=== PATIENT | male | born 1955 | race Caucasian/White ===

== ENCOUNTER 2020-07-26 10:40 | Outpatient (REF) | payer MEDICARE, MEDICAID, SELFPAY | END 2020-07-26 10:41 | disposition home or self-care (01) | LOC: HO.LAB 10:40 | PROVIDERS: Visit Provider Internal Medicine | DX: Z20.828 Contact with and (suspected) exposure to other viral communicable diseases (principal) | CPT/HCPCS: C9803; U0003 ==

== ENCOUNTER → 2020-07-29 10:38 | Outpatient (BNVA) | payer MEDICARE, MEDICAID, SELFPAY | PROVIDERS: PCP Nurse Practitioner Family; Visit Provider Internal Medicine | DX: Z76.89 Persons encountering health services in other specified circumstances (principal) ==

== ENCOUNTER → 2020-08-26 12:37 | Outpatient (BNVA) | payer MEDICARE, MEDICAID, SELFPAY | PROVIDERS: Visit Provider Orthopaedic Surgery | DX: M75.102 Unspecified rotator cuff tear or rupture of left shoulder, not specified as traumatic (principal); I48.91 Unspecified atrial fibrillation | CPT/HCPCS: 99212 ==

== ENCOUNTER 2020-08-27 08:39 | Outpatient (REF) | payer MEDICARE, MEDICAID, SELFPAY | END 2020-08-27 08:40 | disposition home or self-care (01) | LOC: HO.LAB 08:39 | PROVIDERS: Visit Provider Internal Medicine | DX: Z20.822 Contact with and (suspected) exposure to COVID-19 (principal) | CPT/HCPCS: 36415; C9803; U0003 ==

== ENCOUNTER 2020-09-13 10:50 | Outpatient (REF) | payer MEDICARE, MEDICAID, SELFPAY | END 2020-09-13 10:51 | disposition home or self-care (01) | LOC: HO.LAB 10:50 | PROVIDERS: Visit Provider Internal Medicine | DX: Z20.822 Contact with and (suspected) exposure to COVID-19 (principal) | CPT/HCPCS: 36415; C9803; U0003; U0005 ==

== ENCOUNTER → 2020-09-15 12:45 | Outpatient (BNVA) | payer MEDICARE, MEDICAID, SELFPAY | PROVIDERS: PCP Nurse Practitioner Family; Visit Provider Internal Medicine | DX: I48.0 Paroxysmal atrial fibrillation (principal); I10 Essential (primary) hypertension; Z51.81 Encounter for therapeutic drug level monitoring; Z79.899 Other long term (current) drug therapy | CPT/HCPCS: 93005; 99212 ==

== ENCOUNTER 2020-09-22 08:47 | Outpatient (REF) | payer MEDICARE, MEDICAID, SELFPAY | END 2020-09-22 08:48 | disposition home or self-care (01) | LOC: HO.LAB 08:47 | PROVIDERS: Visit Provider Internal Medicine | DX: Z20.822 Contact with and (suspected) exposure to COVID-19 (principal) | CPT/HCPCS: 36415; C9803; U0003; U0005 ==

== ENCOUNTER → 2020-12-23 13:46 | Outpatient (BNVA) | payer MEDICARE, MEDICAID, SELFPAY | PROVIDERS: PCP Nurse Practitioner Family; Visit Provider Orthopaedic Surgery | DX: M75.102 Unspecified rotator cuff tear or rupture of left shoulder, not specified as traumatic (principal); I48.0 Paroxysmal atrial fibrillation | CPT/HCPCS: 99212 ==

== ENCOUNTER → 2020-12-28 10:13 | Outpatient (BNVA) | payer MEDICARE, MEDICAID, SELFPAY | PROVIDERS: PCP Nurse Practitioner Family; Visit Provider Internal Medicine | DX: I48.0 Paroxysmal atrial fibrillation (principal); I10 Essential (primary) hypertension; Z51.81 Encounter for therapeutic drug level monitoring; Z79.899 Other long term (current) drug therapy | CPT/HCPCS: 93005; 99212 ==

== ENCOUNTER → 2021-01-04 09:47 | Outpatient (REF) | payer MEDICARE, MEDICAID, SELFPAY ==
--- NOTE | 2021-01-04 11:10 | ECG_ITS ---
Hook-up date: 2021-01-04 10:00:00 Duration: 23:15:00 Test Indications: PAF Medications: [id number] QRS complexes 33 Ventricular ectopics which represent <1 % of total QRS comp. * Supraventricular ectopics which represent % of total QRS comp. * Paced QRS complexs which represent % of total QRS comp. VENTRICULAR ECTOPY 33 Isolated 0 Bigeminal Cycles 0 Couplets 0 Runs 0 Beats in Runs * Beats LONGEST at * BPM at :: -- * Beats FASTEST at * BPM at :: -- SUPRAVENTRICULAR ECTOPY * Isolated * Couplets * Runs * Beats in Runs * Beats LONGEST at * BPM at :: -- * Beats FASTEST at * BPM at :: -- HEART RATES 50 MIN at 10:17:05 2021-01-04 75 AVG 115 MAX at 19:51:34 2021-01-04 LONGEST RR 2.0080 secs at 10:17:05 2021-01-04 S-T LEVELS Channel 1 - 128 mm at 10:00:00 2021-01-04 - 128 mm at 10:00:00 2021-01-04 Channel 2 - 128 mm at 10:00:00 2021-01-04 - 128 mm at 10:00:00 2021-01-04 Channel 3 - 128 mm at 02:91:91 -- - 128 mm at 02:91:91 Underlying rhythm is atrial fibrillation; Average ventricular rate 75/min; Most rates between 60-100/min; Rare PVCs; Patient diary not available for review. Referred By: Asif Gutierrez Overread By: ASIF GUTIERREZ
== END ==
LOC: HO.CARD 09:47
PROVIDERS: PCP Nurse Practitioner Family; Referring Provider Nurse Practitioner Family; Visit Provider Internal Medicine
DX: I48.0 Paroxysmal atrial fibrillation (principal)
CPT/HCPCS: 93226

== ENCOUNTER → 2021-01-11 08:54 | Outpatient (REF) | payer MEDICARE, BC, SELFPAY | LOC: HO.SL 08:54 | PROVIDERS: Visit Provider Internal Medicine | DX: G47.33 Obstructive sleep apnea (adult) (pediatric) (principal); I48.0 Paroxysmal atrial fibrillation | CPT/HCPCS: 95806 ==

== ENCOUNTER → 2021-01-18 14:46 | Outpatient (BNVA) | payer MEDICARE, MEDICAID, SELFPAY | PROVIDERS: PCP Nurse Practitioner Family; Visit Provider Internal Medicine | DX: E66.9 Obesity, unspecified (principal); G47.33 Obstructive sleep apnea (adult) (pediatric); I48.0 Paroxysmal atrial fibrillation | CPT/HCPCS: 99202 ==

== ENCOUNTER → 2021-02-08 10:42 | Outpatient (BNVA) | payer MEDICARE, MEDICAID, SELFPAY | PROVIDERS: PCP Nurse Practitioner Family; Visit Provider Internal Medicine | DX: I48.0 Paroxysmal atrial fibrillation (principal); I10 Essential (primary) hypertension; G47.33 Obstructive sleep apnea (adult) (pediatric); Z51.81 Encounter for therapeutic drug level monitoring; Z79.899 Other long term (current) drug therapy | CPT/HCPCS: 93005; 99212 ==

== ENCOUNTER → 2021-04-27 09:44 | Outpatient (BNVA) | payer MEDICARE, MEDICAID, SELFPAY | PROVIDERS: PCP Nurse Practitioner Family; Visit Provider Internal Medicine | DX: I10 Essential (primary) hypertension (principal); G47.33 Obstructive sleep apnea (adult) (pediatric); Z79.899 Other long term (current) drug therapy; Z51.81 Encounter for therapeutic drug level monitoring | CPT/HCPCS: 99212 ==

== ENCOUNTER → 2021-05-05 10:37 | Outpatient (BNVA) | payer MEDICARE, MEDICAID, SELFPAY | PROVIDERS: Visit Provider Orthopaedic Surgery | DX: M75.102 Unspecified rotator cuff tear or rupture of left shoulder, not specified as traumatic (principal); I48.0 Paroxysmal atrial fibrillation | CPT/HCPCS: 99212 ==

== ENCOUNTER 2021-06-03 09:59 | Emergency (ER) | payer MEDICARE, MEDICAID, SELFPAY ==
--- NOTE | ~2021-06-03 | XR_ITS ---
EXAMINATION: XR KNEE, RIGHT CLINICAL INFORMATION: Knee pain COMPARISON: March 23, 2016 TECHNIQUE: Four views of the right knee. FINDINGS: There is no evidence of acute fracture or dislocation of the right knee. The medial and lateral joint space compartments are maintained. There is mild spurring about the lateral joint space compartment. There is narrowing of the patellofemoral joint with prominent spurring present. There is a right knee effusion. XR/XR knee RT 4V IMPRESSION: Right knee effusion with patellofemoral joint degenerative change.
[2021-06-03 10:21] VITALS: BP 136/100; PULSE 66; RESP 18; TEMP 36.9; O2SAT 95; BMI 34.2
--- NOTE | 2021-06-03 11:34 | ED.LOWEXIN ---
HPI - Extremity Injury (Lower) General Chief Complaint: Extremity Injury, Lower Stated Complaint: rt knee injury Time Seen by Provider: 06/03/21 11:32 Source: patient Mode of arrival: ambulatory Limitations: no limitations History of Present Illness HPI Narrative: 65-year-old male presenting to the ED with complaints of right knee pain/swelling after he had a mechanical fall where he fell off of a ladder approximately 2 days ago and instead of falling on his back/head he jumped off of the ladder and landed on his right knee and since then has been having pain and mild soft tissue swelling. He reports that he has an appointment with Dr. Benitez later this month for a left rotator cuff repair and he has had meniscus tears to the left knee and surgery therefore this is why he contacted him although Dr. Benitez told him to come here for further evaluation treatment. Patient reports that he is interested in having an MRI due to he knows he has ligament tear. I explained to him that we do not do MRIs emergently in the ER unless they are having stroke or any other symptoms like that and that he would have to follow up as an outpatient with Dr. Benitez for an MRI if Dr. Benitez believes he needs 1. He denies head injury or loss of consciousness. He denies any other injuries complaints or concerns at this time. MD complaint: knee injury and fall Onset (ago): day(s) (Two days) Type of Injury: blunt Place: street/outdoors Severity: moderate Relieving factors: other (Extension of the knee or rest or immobilization) Exacerbating factors: weight bearing, movement, palpation and other (Or flexion of the knee) Context: fall Associated symptoms: swelling and able to partially bear weight Other symptoms: none Treatments prior to arrival: other (He reports he has tried multiple [id number] medication no symptomatic relief) Related Data Home Medications Medication Instructions Recorded Confirmed zolpidem 10 mg tablet 10 mg PO BEDTIME PRN 08/26/20 06/01/21 Previous Rx's Medication Instructions Recorded metoprolol tartrate 25 mg tablet 25 mg PO BID #180 tab 11/16/20 apixaban 5 mg tablet (Eliquis) 5 mg PO BID #180 tab 12/28/20 flecainide 150 mg tablet 150 mg PO Q12H #180 tab 12/28/20 diltiazem HCl 240 mg 240 mg PO DAILY 90 Days #90 cap 02/17/21 capsule,extended release 24 hr acetaminophen 500 mg tablet 1,000 mg PO QID PRN #14 tab 06/03/21 (Tylenol Extra Strength) oxycodone 5 mg tablet 5 mg PO Q6H PRN #14 tab 06/03/21 Allergies Allergy/AdvReac Type Severity Reaction Status Date / Time No Known Allergies Allergy Verified 06/01/21 15:47 [No Known Allergies*] Review of Systems Review of Systems: Constitutional : No Weight loss, No Fever, No Chills, No Night Sweats, No Fatigue, No Malaise ENT/Mouth : No Hearing loss, No Ear Pain, No Nasal Congestion, No Sinus Pain, No Hoarseness, No sore throat, No Rhinorrhea, No Swallowing Difficulty Eyes: No Eye Pain, No Swelling, No Redness, No Foreign Body, No Discharge, No Vision Changes Cardiovascular : No Chest Pain, No SOB, No Dyspnea on Exertion, No Orthopnea, No Edema, No Palpitations Respiratory : No Cough, No Sputum, No Wheezing, No Smoke Exposure, No Dyspnea Gastrointestinal : No Nausea, No Vomiting, No Diarrhea, No Constipation, No abdominal Pain, No Hematochezia, No Melena Genitourinary : no irregular bleeding, No Dysuria, No Urinary Frequency, No Hematuria, No Urinary Incontinence, No Urgency, No Flank Pain, No Urinary Flow Changes, No Hesitancy Musculoskeletal : Positive right knee joint pain/swelling, no myalgias, Skin : No Skin Lesions, No rash Neuro : No Weakness, No Numbness, No Paresthesias, No Loss of Consciousness, No Dizziness, No Headache Psych : No Anxiety/Panic, No Depression, No SI/HI/AH/VH, No Social Issues, Heme/Lymph: No Bruising, No Bleeding,No Lymphadenopathy Endocrine : No Polyuria, No Polydipsia, No Temperature Intolerance Yes all other systems are reviewed and are negative [facility] Past Medical History Attestation statement: The following information was validated with the patient. Medical History Atrial fibrillation Essential hypertension History of depression Obesity (BMI 30-39.9) On anticoagulant therapy On beta adrian at home ELLEN (obstructive sleep apnea) PAF (paroxysmal atrial fibrillation) Surgical History History of cardioversion History of elbow surgery History of left knee surgery Hx of colonoscopy Hx of surgical procedure Family History Family History Mother No problems noted. Father No problems noted. Social History Social History Are you a primary career development engineer to a significant other at home: No Do you presently have visiting nurse or other home services: No Alcohol intake: never Patient Tobacco Use Status: Former Tobacco user Quit Date: Tobacco use type: Cigarette Years Smoked: 1 Advance Directives: Yes Advance Directives on File: Yes Advance Directives Date on File: 04/07/21 Current occupational status: retired 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 Physical Exam Vital Signs: Vital Signs: Last Vital Signs Temp 98.5 F 06/03/21 10: Pulse 66 06/03/21 10:21 Resp 18 06/03/21 10:21 BP 136/100 H 06/03/21 10:21 Pulse Ox 95 06/03/21 10:21 Body Mass Index 34.2 vital signs have been reviewed as normal and appeared to be correct. Blood pressure normal Heart rate normal. Respiration rate normal. Temperature normal. Oxygen saturation normal. Appearance: Alert. Oriented X3. No acute distress. Head: Normal external exam. Normocephalic. Atraumatic. Eyes: PERRLA. EOMI. Conjunctiva and sclera normal. Eyelids normal. ENT: Pharynx normal. Uvula midline. Moist mucous membranes. Neck: Normal inspection. Neck supple. FROM. CVS: Normal heart rate and rhythm. Respiratory: No respiratory distress. Painless inspiration. Skin: Skin warm and dry. Normal skin color. Normal skin turgor. No rashes/lesions/lacerations noted. Extremities: Patient mild soft tissue swelling to right knee and tenderness up patient to the posterior aspect of the knee/lateral aspect and medial aspect. No obvious ligamentous or tendon injury is noted on my exam. Although patient has moderate pain when I perform flexion of the knee. He has normal extension of the knee. all other Extremities exhibit normal range of motion and nontender. Neuro: Oriented X 3. No motor deficit. No sensory deficit. Reflexes normal. Normal steady gait. No focal neuro deficits noted. Vascular: + radial pulses/+ 2 distal pedal pulses/+2 dorsalis pedis b/l. Normal cap refill. No cyanosis noted to upper extremity nails and lower extremity toes nails. Course Course Course Narrative: 65-year-old male presenting to the ED with complaints of right knee pain/swelling after he had a mechanical fall 2 days ago. X-ray revealed joint effusion otherwise no other acute processes. Therefore explained to the patient that he will need to follow up with Dr. Benitez for further evaluation treatment and possible MRI of Dr. Benitez believes he needs it. Along with instructions return if any new or worsening symptoms. Will DC home with a knee immobilizer and symptomatic treatment instructions return if any new or worsening symptoms. Patient understands agrees with this plan. MDM - Extremity Injury (Lower) Medical Records Attestation: I reviewed the patient's medical records. Imaging Data Right knee x-ray: Attestation: I personally reviewed and interpreted this imaging study as follows: Radiologist's impression: FINDINGS: There is no evidence of acute fracture or dislocation of the right knee. The medial and lateral joint space compartments are maintained. There is mild spurring about the lateral joint space compartment. There is narrowing of the patellofemoral joint with prominent spurring present. There is a right knee effusion.? XR/XR knee RT 4V IMPRESSION: Right knee effusion with patellofemoral joint degenerative change. Procedures Orthopedic Splinting/Casting Injury #1: Side: right Lower Extremity Injury Location: knee Lower Extremity Immobilizer: knee immobilizer and Nicholas wrap Other Orthopedic Equipment: crutches Discharge Plan Discharge Clinical Impression: Fall, Right knee sprain, Effusion of knee joint right Patient Disposition: Home, Self-Care Instructions: Knee Sprain (ED), Crutch Instructions (ED), How to Use an Elastic Bandage (ED), Swollen Knee Joint (ED), Fall Prevention (ED), Knee Immobilizer (ED) Prescriptions: New oxycodone 5 mg tablet 5 mg PO Q6H PRN (Reason: pain) Qty: 14 RF: 0 acetaminophen [Tylenol Extra Strength] 500 mg tablet 1,000 mg PO QID PRN (Reason: fever or pain) Qty: 14 RF: 0 No Action metoprolol tartrate 25 mg tablet 25 mg PO BID Qty: 180 RF: 1 diltiazem HCl 240 mg capsule,extended release 24hr 240 mg PO DAILY 90 Days Qty: 90 RF: 1 flecainide 150 mg tablet 150 mg PO Q12H Qty: 180 RF: 4 Eliquis 5 mg tablet 5 mg PO BID Qty: 180 RF: 4 zolpidem 10 mg tablet 10 mg PO BEDTIME PRN (Reason: Sleep) RF: 0 Referrals: Vandana Benitez MD [Physician] - 2 days Print Language: Latvian
== END 2021-06-03 11:48 | disposition home or self-care (01) ==
PROVIDERS: Emergency Provider Emergency Medicine
DX: S83.91XA Sprain of unspecified site of right knee, initial encounter (principal); M25.461 Effusion, right knee; W01.0XXA Fall on same level from slipping, tripping and stumbling without subsequent striking against object, initial encounter; Y93.9 Activity, unspecified; Y92.9 Unspecified place or not applicable; Y99.9 Unspecified external cause status; Z79.899 Other long term (current) drug therapy; F17.210 Nicotine dependence, cigarettes, uncomplicated; Z71.6 Tobacco abuse counseling
CPT/HCPCS: 29505; 73564; 99283

== ENCOUNTER → 2021-06-06 10:58 | Outpatient (BNVA) | payer MEDICARE, MEDICAID, SELFPAY | PROVIDERS: PCP Orthopaedic Surgery; Visit Provider Physician Assistant | DX: Z01.818 Encounter for other preprocedural examination (principal); S80.01XA Contusion of right knee, initial encounter; W11.XXXA Fall on and from ladder, initial encounter; Y93.39 Activity, other involving climbing, rappelling and jumping off; Y92.9 Unspecified place or not applicable; Y99.8 Other external cause status; I48.0 Paroxysmal atrial fibrillation; I10 Essential (primary) hypertension; E66.9 Obesity, unspecified; Z68.34 Body mass index [BMI] 34.0-34.9, adult; Z87.891 Personal history of nicotine dependence | CPT/HCPCS: 20610; 99212; J1040 ==

== ENCOUNTER → 2021-06-28 12:31 | Outpatient (BNVA) | payer MEDICARE, MEDICAID, SELFPAY | PROVIDERS: Visit Provider Physician Assistant | DX: M75.102 Unspecified rotator cuff tear or rupture of left shoulder, not specified as traumatic (principal) | CPT/HCPCS: 99212 ==

== ENCOUNTER → 2021-11-02 09:14 | Outpatient (BNVA) | payer MEDICARE, MEDICAID, SELFPAY | PROVIDERS: Visit Provider Internal Medicine | DX: I48.0 Paroxysmal atrial fibrillation (principal); I10 Essential (primary) hypertension; G47.33 Obstructive sleep apnea (adult) (pediatric); Z51.81 Encounter for therapeutic drug level monitoring; Z79.899 Other long term (current) drug therapy | CPT/HCPCS: 93005; 99212 ==

== ENCOUNTER → 2021-12-14 08:47 | Outpatient (BNVA) | payer MEDICARE, MEDICAID, SELFPAY | PROVIDERS: PCP Family Medicine; Visit Provider Internal Medicine | DX: I48.0 Paroxysmal atrial fibrillation (principal); I10 Essential (primary) hypertension; G47.33 Obstructive sleep apnea (adult) (pediatric); Z79.01 Long term (current) use of anticoagulants; Z79.899 Other long term (current) drug therapy; Z99.89 Dependence on other enabling machines and devices | CPT/HCPCS: 93005; 99212 ==

== ENCOUNTER → 2022-01-02 10:36 | Outpatient (BNVA) | payer MEDICARE, MEDICAID, SELFPAY | PROVIDERS: PCP Family Medicine; Visit Provider Internal Medicine | DX: G47.33 Obstructive sleep apnea (adult) (pediatric) (principal); E66.9 Obesity, unspecified; Z68.35 Body mass index [BMI] 35.0-35.9, adult | CPT/HCPCS: 99212 ==

== ENCOUNTER → 2022-02-02 08:28 | Outpatient (REF) | payer MEDICARE, MEDICAID, SELFPAY ==
--- NOTE | 2022-02-02 08:30 | HM_ITS ---
Conclusion: 1. Patient was monitored for total period of 3 days and 15 hours 2. Baseline was normal sinus rhythm with average heart rate 61 beats per minute 3. No significant pauses noted 4. Very rare ectopy noted 5. No patient reported events MTDD
--- NOTE | 2022-02-02 08:30 | CA_ITS ---
Transthoracic Echocardiogram Patient (Last, First, Middle): Donald Ornelas, Gender: Male Date of : 1955 Age: 66 Procedure Date: 02/02/2022 Procedure Type: Transthoracic Echocardiogram Location: OP Height: 167.64 cm Weight: 100.7 kg BSA: 2.09 m2 Heart Rate: bpm BP: 134 / 88 mmHg Veterinary Attendant: BEREKET Denise MD: Rodolfo Sims MD Urgent Care Nurse Practitioner: Lc Delacruz MD Symptoms: I48.0 - Paroxysmal atrial fibrillation Study Quality: Fair ECG Rhythm: Sinus Conclusions: - 1. Normal LV systolic function with mild LVH with impaired relaxation filling pattern 2. Mildly dilated left atrium 3. Mild aortic regurgitation 4. Normal RV systolic pressure 5. No pericardial effusion Findings Left Ventricle Normal left ventricular size and systolic function. There is mildly increased left ventricular wall thickness. The visually estimated ejection fraction is between 55-60%. Spectral Doppler is indicative of an impaired relaxation filling pattern. E/E prime ratio is between 8 and 15 consistent with indeterminate filling pressures. Right Ventricle Normal right ventricular cavity size and systolic function. Atria The left atrium is mildly dilated. There is no evidence of interatrial shunt. The right atrium is normal in size. Aortic Valve Normal aortic valve structure and function. There is no aortic valve stenosis. There is mild aortic valve regurgitation. Mitral Valve Normal mitral valve structure and function. There is trace mitral valve regurgitation. There is no mitral valve stenosis. Pulmonic Valve The pulmonic valve is likely normal. There is trace pulmonic valve regurgitation. Tricuspid Valve Normal tricuspid valve structure. There is trace tricuspid valve regurgitation. The right ventricular systolic pressure is normal. The right ventricular systolic pressure is 16 mmHg. Normal right atrial pressure. There is no evidence of pulmonary hypertension. Great Vessels All visible segments of the aorta are normal in size. The pulmonary artery was not well visualized. Venous The inferior vena cava is normal in size and collapses greater than 50% with inspiration. Pericardium/Pleural There is no evidence of pericardial effusion. Prior Study Comparison Changes noted compared to prior study dated: 08/21/2019. Mild LVH is noted Measurements 2D Linear Measurements IVSd: 1.20 0.6-0.9/0.6-1.0 cm LVIDd: 4.49 3.9-5.3/4.2-5.9 cm LVIDd Index: 2.15 2.4-3.2/2.2-3.1 cm/m2 LVIDs: 3.24 2.0-3.6 cm LVPWd: 1.25 0.7-1.1 cm LA Diam: 3.70 2.7-3.8/3.0-4.0 cm LAIDs Index: 1.77 1.5-2.3 cm/m2 LV Mass: 253.49 67-162/88-224 g LV Mass Index: 121.29 43-95/49-115 g/m2 LVOT Diam: 2.10 3.0+(-)1.3 cm 2D Systolic Function EF 4C: 57.20 >55% EF 2C: 62.30 >55% EF BiP: 59.40 >55% Mitral Valve MV Pk E: 0.92 MV PK A: 0.67 MV Decel Time: 250.00 E/A: 1.40 E'Lateral: 8.16 E'Medial: 6.96 E/E' Med: 13.20 E/E' Lat: 11.30 PHT: 73.00 MVA PHT: 3.01 Decel [place]: 3.68 Aortic Valve AoV Pk Wei: 1.33 AoV Mn Wei: 0.91 AoV VTI: 0.29 AoV Pk Grad: 7.00 Aov Mn Grad: 4.00 JEFF Cont.VTI: 2.49 LVOT LVOT Pk Wei: 0.98 LVOT Mn Wei: 0.68 LVOT VTI: 0.21 LVOT Pk Grad: 4.00 LVOT Mn Grad: 2.00 LVOT Diam: 2.10 LVOT Area: 3.46 Diastolic Function MV Pk E: 0.92 MV Pk A: 0.67 E/A: 1.40 E'Medial: 6.96 E/E' Med: 13.20 E' Laterial: 8.16 E/E' Lat: 11.30 Right Ventricle TAPSE (mm): 23.00 TVS' Wei: 11.50 Tricuspid Valve TR Pk Wei: 1.79 TR Pk Grad: 13.00 RA Press: 3.00 RVSP: 16.00 Great Vessels Aorta Sinus of Valsalva: 3.46 2.0-3.[address] [place]: 3.35 1.7-3.4 cm Ao Asc: 3.50 2.1-3.4 cm Ao Arch: 2.80 Updated in Other Vendor System with Status of Final Lc Delacruz MD electronically signed on 02/03/2022 2:52:48 PM with status of Final
== END ==
LOC: HO.CARD 08:28
PROVIDERS: Visit Provider Internal Medicine
DX: I48.0 Paroxysmal atrial fibrillation (principal); R06.02 Shortness of breath
CPT/HCPCS: 93242; 93306

== ENCOUNTER → 2022-02-16 09:29 | Outpatient (BNVA) | payer MEDICARE, MEDICAID, SELFPAY | PROVIDERS: PCP Family Medicine; Referring Provider Family Medicine; Visit Provider Internal Medicine | DX: I48.0 Paroxysmal atrial fibrillation (principal); I10 Essential (primary) hypertension; G47.33 Obstructive sleep apnea (adult) (pediatric); Z79.01 Long term (current) use of anticoagulants; Z79.899 Other long term (current) drug therapy | CPT/HCPCS: 99212 ==

== ENCOUNTER 2022-03-20 07:45 | Outpatient (RCR) | payer MEDICARE, MEDICAID, SELFPAY | END 2022-04-22 15:20 | disposition home or self-care (01) | LOC: HO.PT 07:45 | PROVIDERS: Visit Provider Physician Assistant | DX: Z98.890 Other specified postprocedural states (principal) ==

== ENCOUNTER 2022-04-19 09:59 | Outpatient (REF) | payer MEDICARE, MEDICAID, SELFPAY ==
[2022-04-19 10:33] LABS: COVID-19 Test Negative (Negative)
== END 2022-04-19 10:00 | disposition home or self-care (01) ==
LOC: HO.LAB 09:59
PROVIDERS: Visit Provider Internal Medicine
DX: Z20.822 Contact with and (suspected) exposure to COVID-19 (principal)
CPT/HCPCS: 87635; C9803

== ENCOUNTER → 2022-04-21 10:11 | Outpatient (BNVA) | payer MEDICARE, MEDICAID, SELFPAY | PROVIDERS: Visit Provider Orthopaedic Surgery | DX: M75.102 Unspecified rotator cuff tear or rupture of left shoulder, not specified as traumatic (principal); I48.0 Paroxysmal atrial fibrillation | CPT/HCPCS: 99212 ==

== ENCOUNTER → 2022-04-24 21:06 | Outpatient (REF) | payer MEDICARE, MEDICAID, SELFPAY | LOC: HO.SL 21:06 | PROVIDERS: Visit Provider Internal Medicine | DX: G47.33 Obstructive sleep apnea (adult) (pediatric) (principal); E66.9 Obesity, unspecified | CPT/HCPCS: 95810 ==

== ENCOUNTER → 2022-05-10 06:47 | Day surgery (SDC) | payer MEDICARE, MEDICAID, SELFPAY ==
[2022-05-05 10:31] VITALS: BMI 34.3
--- NOTE | 2022-05-09 08:15 | P.CONAN_ITS ---
Documented by User: Chloe Nielsen NP 05/09/22 08:20 HPI - Anesthesia Eval Consult details Narrative: 66yo M for Left Arthroscopic Rotator Cuff Repair Cardiac cleared Eliquis for afib PMFSH Active Problems Active Problems: All Active Problems (Updated 02/16/22 @ 09:51 by Rodolfo Sims MD) Preoperative cardiovascular examination (Acute) Encounter for monitoring flecainide therapy (Acute) Rotator cuff tear, left (Acute) Contusion of right knee (Acute) Atrial fibrillation (Acute) ELLEN (obstructive sleep apnea) (Acute) Obesity (BMI 30-39.9) (Acute) Essential hypertension (Acute) PAF (paroxysmal atrial fibrillation) (Acute) Past Medical History Medical History Atrial fibrillation Essential hypertension History of depression Obesity (BMI 30-39.9) On anticoagulant therapy On beta adrian at home ELLEN (obstructive sleep apnea) PAF (paroxysmal atrial fibrillation) Family History Family History Mother No problems noted. Father No problems noted. Surgical History Surgical History History of cardioversion History of elbow surgery History of left knee surgery Hx of colonoscopy Hx of surgical procedure Social History Social History Are you a primary health care marketing specialist to a significant other at home: No Do you presently have visiting nurse or other home services: No Alcohol intake: never Patient Tobacco Use Status: Former Tobacco user Quit Date: Tobacco use type: Cigarette Years Smoked: 1 Advance Directives: Yes Advance Directives on File: Yes Advance Directives Date on File: 04/07/21 Current occupational status: retired 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 Meds Allergies Allergy/AdvReac Type Severity Reaction Status Date / Time No Known Allergies Allergy Verified 05/10/22 14:35 [No Known Allergies*] Home Medications Medication Instructions Recorded Confirmed Last Taken Type zolpidem 10 mg tablet 10 mg PO BEDTIME PRN Sleep 08/26/20 05/05/22 Unknown History lorazepam 0.5 mg tablet 0.5 mg PO BID 02/16/22 05/05/22 Unknown History Exam Exam Date and Time: May 09, 2022 0815 Height,Weight and Vital Signs: Height 5 ft 6 in Weight 96.615 kg Narrative Narrative: EKG 12/2021 sinus bradycardia, 58/Min; borderline AK prolongation to 206 millisecond; normal QTc echocardiogram 01/2022 LVEF 55-60%, mild diastolic dysfunction, mild aortic regurgitation but otherwise unremarkable. Myocardial perfusion imaging 01/2022 normal perfusion; no ischemia. Coronary CTA did not show any significant obstructive disease. Recent Holter with no significant arrhythmias. Assessment and Plan Assessment Anesthesia Assessment: Chart Reviewed Documented by User: Darin Clay MD 05/10/22 17:28 [facility] Past Medical History Medical History Atrial fibrillation Essential hypertension History of depression Obesity (BMI 30-39.9) On anticoagulant therapy On beta adrian at home ELLEN (obstructive sleep apnea) PAF (paroxysmal atrial fibrillation) Functional capacity: independent ambulation Family History Family History Mother No problems noted. Father No problems noted. Family history of problems with anesthesia: No Surgical History Surgical History History of cardioversion History of elbow surgery History of left knee surgery Hx of colonoscopy Hx of surgical procedure History of Problems with Anesthesia: No Social History Social History Are you a primary health care marketing specialist to a significant other at home: No Do you presently have visiting nurse or other home services: No Alcohol intake: never Patient Tobacco Use Status: Former Tobacco user Quit Date: Tobacco use type: Cigarette Years Smoked: 1 Advance Directives: Yes Advance Directives on File: Yes Advance Directives Date on File: 04/07/21 Current occupational status: retired 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 Meds Allergies Allergy/AdvReac Type Severity Reaction Status Date / Time No Known Allergies Allergy Verified 05/10/22 14:35 [No Known Allergies*] Home Medications Medication Instructions Recorded Confirmed Last Taken Type zolpidem 10 mg tablet 10 mg PO BEDTIME PRN Sleep 08/26/20 05/05/22 Unknown History lorazepam 0.5 mg tablet 0.5 mg PO BID 02/16/22 05/05/22 Unknown History Exam Airway Mallampati Class: III TM Dist: >3cm Neck ROM: Full Denture: Upper and Lower Loose/Missing/Broken Teeth: Yes Heart: S1,S2 Lungs: b/l breath sounds Assessment and Plan Assessment Anesthesia Assessment: Anesthesia Plan Discussed Final Anesthetic Review Family History of Problems with Anesthesia: No History of Problems with Anesthesia: No NPO: Yes ASA Class: III Final Preanesthetic Review: Meds/Allgs Chart Reviewed, Consent Obtained/Reviewed and Anes Risks/Benef Reviewed Patient Risk: Intermediate Procedure Risk: Intermediate Anesthetic Plan Anesthetic Plan: GA Disposition: Standard PACU
[2022-05-10] VITALS (13 sets, daily range): BP systolic 112–147; BP diastolic 64–81; PULSE 52–65; RESP 15–16; TEMP 36.1–36.4; O2SAT 94–100; BMI 33.4
[2022-05-10 07:44] LABS: Hematocrit 45.4 % (42.0-52.0); Hemoglobin 15.2 g/dl (14.0-18.0); Mean Corpuscular HGB Conc 33.5 g/dl (31.0-36.0); Mean Corpuscular Hemoglobin 29.6 pg (27.0-33.0); Mean Corpuscular Volume 88.5 fL (80.0-98.0); Mean Platelet Volume 9.3 fL (9.4-12.4); Platelet Count 230 X10*3/uL (160-400); Red Blood Count 5.13 X10*6/uL (4.60-5.80); Red Cell Distribution Width 12.8 % (11.0-16.0); White Blood Count 4.1 X10*3/uL (4.8-10.8)
[2022-05-10] MEDS: Lactated Ringers 1,000 ML 100 ML IVCONT (07:49)
[2022-05-10 08:01] LABS: Anion Gap 11 (12-20); Blood Urea Nitrogen 12 mg/dL (9-16); Calcium 9.8 mg/dL (8.4-10.2); Carbon Dioxide 28 mmol/L (22-29); Chloride 104 mmol/L (96-108); Creatinine Clr Calc Pharmacy 85.6; Estimated Glomerular Filt Rate > 60; Glucose Fasting 98 mg/dL (60-99); Potassium 4.4 mmol/L (3.3-5.1); Sodium 139 mmol/L (135-145)
--- NOTE | 2022-05-10 09:59 | MHC.SHP ---
Pre-Procedural Eval Section A Date of Service: 05/10/22 The patient is an INPATIENT: No Changes since office visit: Yes Patient answered all questions; No Cold of Flu in the past 2 weeks, No New Medical Problems and No Changes in Medication The History & Physical has been completed within 30 days and I have reviewed it.: Yes Section B Chief Complaint: rotator cuff tear Allergies: Allergies Allergy/AdvReac Type Severity Reaction Status Date / Time No Known Allergies Allergy Verified 02/16/22 09:34 [No Known Allergies*] Plan I have reviewed the history and physical and performed a pertinent physical examination on my patient. No changes have occurred unless specified.
--- NOTE | 2022-05-10 11:28 | PM.OP ---
Brief Operative Note Date of Service: 05/10/22 Pre-op diagnosis: Left shoulder RTC tear Post-op diagnosis: same Procedure: Left RTC repair, arthroscopic Implants: [employer] Helacoil X4 Surgeon: Ozzie Dominguez MD Anesthesia: GETA and regional Was an Consumer Loan Manager used for this Procedure?: Yes Consumer Loan Manager: Delaney Vega Estimated blood loss (mL): 5 IV fluids (mL): 1,000 Pathology: none sent Condition: stable Disposition: PACU
--- NOTE | 2022-05-10 11:41 | P.OP_ITS ---
Operative Note Operative Note Date of Service: 05/10/22 Narrative: Date of Service: 05/10/22 Pre-op diagnosis: Left shoulder RTC tear Post-op diagnosis: same Procedure: Left RTC repair, arthroscopic Implants: [employer]hew Helacoil X4 Surgeon: Ozzie Dominguez MD Anesthesia: GETA and regional Was an Physical Plant Employee used for this Procedure?: Yes Physical Plant Employee: Delaney Vega Estimated blood loss (mL): 5 IV fluids (mL): 1,000 Pathology: none sent Condition: stable Disposition: PACU Procedure in detail: Patient was brought to the operating room and placed the the beach chair position. All bony prominences were well padded and the limb was prepped and draped in standard sterile fashion. A time out was called to identify proper site, proper procedure and proper surgeon. IV antibiotics per weight were administered. I began by making a posterolateral stab incision with a 15 blade. A blunt trochar was placed into the glenohumeral joint and I insufflated the joint with saline and a 30 degree arthroscope was placed. I established an outside- in anterior portal just distal to the biceps tendon. I then began my inspection of the glenohumeral joint. There was an intact biceps with minimal fraying of the labrum anteriorly. There were no cartilage changes. There was a full thickness undersurface RTC tear. Subscapularis was intact. I debrided the degenerative labral tearing. I then removed the trochar and entered the subacromial space. Two lateral portal was then established and I performed a bursectomy. The cuff was then examined. There was a full thickness crescent-shaped tear of the supra and infraspinatus without severe retraction. The tear was mobile. I placed two medial row double loaded anchors and then brought the suture tape and the suture through the medial cuff.. I then debrided the bare area down to bleeding bone and, using a cross bridge configuration, brought four limbs to each of two lateral 5.0 anchors. This re-approximated the cuff anatomy anatomically. I then performed a 5 mm subacromial decompression. Once I was satisfied with the repair final images were captured and I removed all instrumentation. Portals were closed with nylon. Patient was placed in an abduction sling, extubated and brought to the recovery room in stable condition. There were no known complications.
[2022-05-10] MEDS: oxyCODONE HCl Immed Release 5 MG TABLET PO (12:02)
[2022-05-10] MEDS: Acetaminophen 325 MG TABLET 650 MG PO (12:02)
[2022-05-10] MEDS: HYDROmorphone HCl 0.5 MG/0.5 ML SYRINGE 0.25 MG IVPUSH (12:03)
--- NOTE | 2022-05-10 12:50 | ECG_ITS ---
Test Reason : afib Blood Pressure : / mmHG Vent. Rate : 050 BPM Atrial Rate : 050 BPM P-R Int : 206 ms QRS Dur : 106 ms QT Int : 454 ms P-R-T Axes : 039 -02 014 degrees QTc Int : 413 ms Sinus bradycardia Otherwise normal ECG When compared with ECG of 18-DEC-2019 08:52, Heart rate has decreased Referred By: Darin Clay Electronically Signed By:CUCO BECKMAN
== END | disposition home or self-care (01) ==
PROVIDERS: Nurse Practitioner; Visit Provider Orthopaedic Surgery
PROC: (CPT 29827; principal; 2022-05-10 09:10)
DX: M75.102 Unspecified rotator cuff tear or rupture of left shoulder, not specified as traumatic (principal); I48.0 Paroxysmal atrial fibrillation; I10 Essential (primary) hypertension; G47.33 Obstructive sleep apnea (adult) (pediatric); E66.9 Obesity, unspecified; Z68.34 Body mass index [BMI] 34.0-34.9, adult; Z79.01 Long term (current) use of anticoagulants; Z79.899 Other long term (current) drug therapy; Z87.891 Personal history of nicotine dependence
CPT/HCPCS: 29827; 29826; 36415; 71045; 80048; 80076; 83690; 83735; 84484; 85025; 85027; 85379; 93005; 96374; 96376; 99284; C1713; J0171; J0690; J1170; J1885; J2250; J2370; J2795; J3010

== ENCOUNTER 2022-05-10 14:13 | Emergency (ER) | payer MEDICARE, MEDICAID, SELFPAY ==
--- NOTE | ~2022-05-10 | XR_ITS ---
EXAMINATION: XR CHEST CLINICAL INFORMATION: Chest pain COMPARISON: Previous chest x-ray December 2019 TECHNIQUE: Frontal view of the chest was obtained. FINDINGS: The cardiac and mediastinal contours are stable. There is atelectasis or small infiltrate at the left lung base. The lungs are otherwise clear. There is no pleural effusion or pneumothorax. Visualized bony structures are normal. XR/XR chest 1V IMPRESSION: Atelectasis or small infiltrate at the left lung base.
--- NOTE | 2022-05-10 14:16 | ECG_ITS ---
Test Reason : CHEST PAIN Blood Pressure : / mmHG Vent. Rate : 064 BPM Atrial Rate : 064 BPM P-R Int : 226 ms QRS Dur : 108 ms QT Int : 440 ms P-R-T Axes : 044 000 008 degrees QTc Int : 453 ms Sinus rhythm with 1st degree A-V block Otherwise normal ECG When compared with ECG of 10-MAY-2022 12:49, OK interval has increased Heart rate has increased Referred By: Generic ED Physician Electronically Signed By:CUCO BECKMAN
[2022-05-10 14:19] VITALS: BP 136/79; PULSE 67; RESP 16; TEMP 36.6; O2SAT 96; BMI 33.4
--- NOTE | 2022-05-10 14:37 | ED_ITS ---
HPI - Chest Pain General Chief Complaint: Chest Pain Stated Complaint: CP Time Seen by Provider: 05/10/22 14:25 Source: patient and old records reviewed Mode of arrival: other (from PACU) Limitations: no limitations History of Present Illness HPI narrative: 66 yo male with hx of afib on bblocker, CCB, fleicanide, eliquis though held prior to surgery, HTN, ELLEN, had L RTC repair today while in PACU felt chest pain and tightness across entire chest mostly in L upper chest area. He was given a neb treatment and some tightness did resolve. He overall feels his L shoulder block is wearing off at this time and has pain. MD complaint: chest pain Pertinent past history: other (afib) Onset (ago): hour(s) (1) Timing of current episode: constant Prior episodes: No Onset: during rest Pain location: substernal and left chest Pain radiation: none Severity: moderate Quality: tightness and aching Relieving factors: nothing Exacerbating factors: inspiration, palpation and movement Context: recent surgery (just left PACU) Associated symptoms: dyspnea Treatment prior to arrival: other (albuterol ) Related Data Home Medications Medication Instructions Recorded Confirmed zolpidem 10 mg tablet 10 mg PO BEDTIME PRN Sleep 08/26/20 05/05/22 lorazepam 0.5 mg tablet 0.5 mg PO BID 02/16/22 05/05/22 Previous Rx's Medication Instructions Recorded apixaban 5 mg tablet (Eliquis) 5 mg PO BID #180 tabs 09/13/21 metoprolol tartrate 25 mg tablet 25 mg PO BID #180 tabs 09/13/21 flecainide 150 mg tablet 150 mg PO Q12H #180 tabs 11/07/21 diltiazem HCl 240 mg 240 mg PO DAILY 90 days #90 caps 12/09/21 capsule,extended release 24 hr hydromorphone 2 mg tablet 2 mg PO Q4-6H PRN pain 7 days #42 05/10/22 (Dilaudid) tabs morphine 15 mg tablet,extended 15 mg PO Q12H pain severe 3 days 05/10/22 release (MS Contin) #6 tabs Allergies Allergy/AdvReac Type Severity Reaction Status Date / Time No Known Allergies Allergy Verified 05/10/22 14:35 [No Known Allergies*] Review of Systems Review of Systems: Constitutional : No Weight loss, No Fever, No Chills ENT/Mouth : No sore throat, No Rhinorrhea Eyes: No Eye Pain, No Swelling Cardiovascular : pos Chest Pain, pos SOB, no Dyspnea on Exertion, No Orthopnea, No Edema, No Palpitations Respiratory : No Cough, No Sputum Gastrointestinal : no Nausea, No Vomiting, No Diarrhea, No abdominal Pain, No Hematochezia, No Melena Genitourinary : No Dysuria, No Urinary Frequency Musculoskeletal : No joint pain, No Myalgias, No Joint Swelling Skin : No Skin Lesions, No rash Neuro : No Weakness, No Numbness, No Dizziness, No Headache Psych : No Anxiety/Panic, No Depression Heme/Lymph: No Bruising, No Lymphadenopathy Endocrine : No Polyuria, No Polydipsia All other systems reviewed and are negative [facility] Past Medical History Attestation statement: The following information was validated with the patient. Medical History Atrial fibrillation Essential hypertension History of depression Obesity (BMI 30-39.9) On anticoagulant therapy On beta adrian at home ELLEN (obstructive sleep apnea) PAF (paroxysmal atrial fibrillation) Surgical History History of cardioversion History of elbow surgery History of left knee surgery Hx of colonoscopy Hx of surgical procedure Family History Family History Mother No problems noted. Father No problems noted. Social History Social History Are you a primary complex care nurse practitioner to a significant other at home: No Do you presently have visiting nurse or other home services: No Alcohol intake: never Patient Tobacco Use Status: Former Tobacco user Quit Date: Tobacco use type: Cigarette Years Smoked: 1 Advance Directives: Yes Advance Directives on File: Yes Advance Directives Date on File: 04/07/21 Current occupational status: retired 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 Physical Exam Vital Signs: Vital Signs: Last Vital Signs Temp 98 F 05/10/22 14:19 Pulse 72 05/10/22 15:59 Resp 17 05/10/22 16:01 BP 138/65 05/10/22 15:59 Pulse Ox 98 05/10/22 15:59 O2 Del Method 05/10/22 15:59 BMI result Body Mass Index 33.4 Appearance: Alert. Oriented X3. No acute distress. Eyes: Pupils equal, round and reactive to light. ENT: Pharynx normal. Neck: Normal inspection. Neck supple. CVS: Normal heart rate and rhythm. Pulses normal. Chest wall: ttp along L chest with mild swelling noted palpation causes some pain, no crepitus noted Respiratory: No respiratory distress. Breath sounds normal. Abdomen: Soft and nontender. Skin: Skin warm and dry. Normal skin color. Normal skin turgor. Extremities: No lower extremity edema. No calf ttp LUE shoulder area is swollen post operatively - BCR in all digits. Hand is warm to touch Neuro: Oriented X 3. No motor deficit. No sensory deficit. Course Course Course Narrative: signed out to Dr. Jo pending further workup MDM - Chest Pain MDM Narrative Medical decision making narrative: 66 yo male with hx of afib on bblocker, CCB, fleicanide, eliquis though held prior to surgery, HTN, ELLEN, had L RTC repair today here with c/o chest pain and tightness post surgery that seems more chest wall - will obtain troponin x 2, CXR for pneumothorax, IV dilaudid for pain. Ddimer given his reports that is is pleuritic in nature though I have lower suspicion for this. Lab Data Result diagrams: 05/10/22 14:42 05/10/22 14:42 Labs: Lab Results 05/10/22 05/10/22 05/10/22 Range/Units 14:42 14:42 14:42 WBC 4.2 L (4.8-10.8) X10*3/uL RBC 5.10 (4.60-5.80) X10*6/uL Hgb 14.8 (14.0-18.0) g/dl Hct 44.6 (42.0-52.0) % MCV 87.5 (80.0-98.0) fL MCH 29.0 (27.0-33.0) pg MCHC 33.2 (31.0-36.0) g/dl RDW 13.1 (11.0-16.0) % Plt Count 190 (160-400) X10*3/uL MPV 8.9 L (9.4-12.4) fL Immature Gran % (Auto) 0.2 (0.0-0.4) % Neut % (Auto) 83.6 H (45-73) % Lymph % (Auto) 13.8 L (20-40) % [place] % (Auto) 1.7 L (2-11) % Eos % (Auto) 0.2 (0-4) % Baso % (Auto) 0.5 (0-2) % Lymph # (Auto) 0.6 L (1.2-4.9) X10*3/uL [place] # (Auto) 0.1 (0.1-1.2) X10*3/uL Eos # (Auto) 0.0 (0.0-0.4) X10*3/uL Baso # (Auto) 0.0 (0.0-0.2) X10*3/uL Abs Immat Gran (auto) 0.01 (0.00-0.03) X10*3/uL Absolute Neuts (auto) 3.5 (2.0-8.3) x10*3/uL Absolute Nucleated RBC 0.000 (0.0-0.012) X10*3/uL Nucleated RBC % (auto) 0.0 (0.0-0.2) /100WBC Sodium 138 (135-145) mmol/L Potassium 4.3 (3.3-5.1) mmol/L Chloride 104 (96-108) mmol/L Carbon Dioxide 24 (22-29) mmol/L Anion Gap 14 (12-20) BUN 10 (9-16) mg/dL Creatinine 0.90 (0.5-1.4) mg/dL Estim Creat Clear Calc 86.6 Estimated GFR > 60 Random Glucose 131 H (60-115) mg/dL Calcium 9.3 (8.4-10.2) mg/dL Magnesium 2.0 (1.6-2.6) mg/dL Total Bilirubin 0.5 (0.0-1.0) mg/dL Direct Bilirubin 0.2 (0.0-0.5) mg/dL AST 22 (5-37) U/L ALT 16 (0-40) U/L Alkaline Phosphatase 68 (39-117) U/L Troponin I High Sens 5.0 (<3.5-35.0) ng/L Total Protein 6.7 (6.5-8.0) g/dL Albumin 4.3 (3.5-5.0) g/dL Lipase 12 (8-78) U/L ECG Data ECG #1: Attestation: I personally reviewed and interpreted this ECG as follows: ECG interpretation date: 05/10/22 ECG interpretation time: 14:57 Interpretation: Rate: 64 Rhythm: NSR [place]: left Normal P waves. Normal CINDY. Normal QRS complex. ST T wave : no VERN, artifact noted anterior leads qTC: normal prior studies: no acute ischemia The study has been interpreted contemporaneously by me. . Discharge Plan Discharge Clinical Impression: Atypical chest pain Patient Disposition: Still a Patient Prescriptions: No Action Eliquis 5 mg tablet 5 mg PO BID Qty: 180 3RF metoprolol tartrate 25 mg tablet 25 mg PO BID Qty: 180 2RF flecainide 150 mg tablet 150 mg PO Q12H Qty: 180 2RF diltiazem HCl 240 mg capsule,extended release 24hr 240 mg PO DAILY 90 Days Qty: 90 3RF morphine [MS Contin] 15 mg tablet extended release 15 mg PO Q12H 3 Days Qty: 6 0RF Rx Instructions: Partial Fill upon patient request. hydromorphone [Dilaudid] 2 mg tablet 2 mg PO Q4-6H PRN (Reason: pain) 7 Days Qty: 42 0RF Rx Instructions: Partial Fill upon patient request. zolpidem 10 mg tablet 10 mg PO BEDTIME PRN (Reason: Sleep) lorazepam 0.5 mg tablet 0.5 mg PO BID
--- OUTSIDE RECORDS SUMMARY | 2022-05-10 14:44 | XMS_ITS ---
:1955 Author Support Name Relationship Address Phone Donald Ornelas Unavailable [address] [facility], [facility]. [address] [place] [address] PROBLEMS Type Condition ICD9-CM Code [id number] Onset Condition SNOMED Code Code Dates Status Problem INSOMNIA NEC 780.52 Active 8251608 01 Problem Acute atopic 372.05 20 Nov, Active 1247108 4 conjunctivitis 2006 Problem GERD 530.81 Active 702048772 Problem OBESITY NOS BMI 278.00 Active 4149 07780 30.0-39.9 Problem Major depressive 296.00 Active 370 636395 disorder NOS ALLERGIES No Known Allergies ENCOUNTERS Encounter Location Date Diagnosis [facility] [address] [place] [address], Jul, [place] [phone] [facility] [address] [place] [address], Jul, [place] [phone] [facility] [address] [place] [address], Jul, [place] [phone] IMMUNIZATIONS Vaccine Route Administration Date Status Hepatitis A IM Intramuscular Aug 08, 2005 Administered Hepatitis A IM Intramuscular February 09, 2005 Administered Hepatitis B (20 or more) IM Intramuscular October 25, 2005 Admini stered Hepatitis B (20 or more) Unknown Apr 19, 2005 Adminis tered Hepatitis B (20 or more) IM Intramuscular February 09, 2005 Admini stered Td (adult) Unknown Aug 13, 2001 Administered SOCIAL HISTORY Never Assessed REASON FOR REFERRAL Referral Organization [facility] Referring Provider First Name Nursing Referring Provider Last Name [facility] Referring Provider Specialty Family Practice Referring Provider Referral Organization [facility] Referring Provider First Name Nursing Referring Provider Last Name [facility] Referring Provider Specialty Family Practice Referring Provider Referral Organization [facility] Referring Provider First Name Nursing Referring Provider Last Name [facility] Referring Provider Specialty Family Practice Referring Provider Referral Organization [facility] Referring Provider First Name Nursing Referring Provider Last Name [facility] Referring Provider Specialty Family Practice Referring Provider Referral Organization [facility] Referring Provider First Name Nursing Referring Provider Last Name [facility] Referring Provider Specialty [facility] Practice Referring Provider Referral Organization [facility] Referring Provider First Name Nursing Referring Provider Last Name [facility] Referring Provider Specialty Family Practice Referring Provider FUNCTIONAL STATUS PLAN OF CARE Activity Details Referral Appl. MBR/SMBR [facility] Referral Verification [facility] Referral Verification [facility] Referral Post Application [facility] Assist Referral Appl. MBR/SMBR [facility] Referral Obtained (MANOJ) Benefit VITAL SIGNS MEDICATIONS Medication Instructions Dosage Frequency Start Date End Date Duration S tatus SEROquel 300 mg orally hs 1 tab(s) 30 day(s) Act lyla PROCEDURES No Known procedures RESULTS No Results REASON FOR VISIT MEDICAL (GENERAL) HISTORY Type Description Date Medical History wears glasses Surgical History carpal tunnel release
--- OUTSIDE RECORDS SUMMARY | 2022-05-10 14:44 | XMS_ITS | Continuity of Care Document ---
:1955 Author Organization [facility] Address [address] [place] [address]- Care Team Providers Name Role Phone Rodolfo Sims MD Primary Care Physician Encounter [facility] Date(s): 12/31/19 - 02/29/[address] [address]- [facility] Attending Physician: Rodolfo Sims MD Admitting Physician: Rodolfo Sims MD Referring Physician: Rodolfo Sims MD Allergies, Adverse Reactions, Alerts Substance Reaction Severity Status NKA Active Medications apixaban 5 mg oral tablet 1 tablet = 5 mg, By Mouth, 2 times a day, 0 Refills, Maintenance, 01/30/20 6:31:00 EDT Start Date: 01/30/20 Stop Date: 02/29/20 Status: OrderedDilTIAZem (Eqv-Tiazac) 240 mg/24 hours oral capsule, extended release 1 capsule = 240 mg, By Mouth, Daily, 0 Refills, Maintenance, 01/30/20 6:50:00 EDT Start Date: 01/30/20 Status: Orderedflecainide 100 mg oral tablet 100 mg, 1, tablet, By Mouth, Every 12 hours, Refills 0, Maintenance, 01/30/20 6:50:00 EDT Start Date: 01/30/20 Status: Ordered
[2022-05-10 14:49] LABS: MANUAL DIFF FLAG NO
[2022-05-10 14:50] LABS: Basophils Percent Auto 0.5 % (0-2); Eosinophils Percent Auto 0.2 % (0-4); Hematocrit 44.6 % (42.0-52.0); Hemoglobin 14.8 g/dl (14.0-18.0); Imm Gran Abs Auto 0.01 X10*3/uL (0.00-0.03); Imm Gran Pct Auto 0.2 % (0.0-0.4); Lymphocytes Absolute Auto 0.6 X10*3/uL (1.2-4.9); Lymphocytes Percent Auto 13.8 % (20-40); Mean Corpuscular HGB Conc 33.2 g/dl (31.0-36.0); Mean Corpuscular Volume 87.5 fL (80.0-98.0); Mean Platelet Volume 8.9 fL (9.4-12.4); Monocytes Absolute Auto 0.1 X10*3/uL (0.1-1.2); Monocytes Percent Auto 1.7 % (2-11); Neutrophils Absolute Auto 3.5 x10*3/uL (2.0-8.3); Neutrophils Percent Auto 83.6 % (45-73); Platelet Count 190 X10*3/uL (160-400); Red Cell Distribution Width 13.1 % (11.0-16.0); White Blood Count 4.2 X10*3/uL (4.8-10.8)
[2022-05-10 15:08] LABS: Alanine Aminotransferase 16 U/L (0-40); Albumin Level 4.3 g/dL (3.5-5.0); Alkaline Phosphatase 68 U/L (39-117); Anion Gap 14 (12-20); Aspartate Amino Transferase 22 U/L (5-37); Bilirubin Direct 0.2 mg/dL (0.0-0.5); Bilirubin Total 0.5 mg/dL (0.0-1.0); Blood Urea Nitrogen 10 mg/dL (9-16); Calcium 9.3 mg/dL (8.4-10.2); Carbon Dioxide 24 mmol/L (22-29); Chloride 104 mmol/L (96-108); Creatinine Clr Calc Pharmacy 86.6; Estimated Glomerular Filt Rate > 60; Glucose Random 131 mg/dL (60-115); Lipase 12 U/L (8-78); Potassium 4.3 mmol/L (3.3-5.1); Sodium 138 mmol/L (135-145); Total Protein 6.7 g/dL (6.5-8.0)
[2022-05-10 15:59] VITALS: BP 138/65; PULSE 72; RESP 17; O2SAT 98
[2022-05-10 16:01] VITALS: RESP 17
[2022-05-10] MEDS: HYDROmorphone HCl 0.5 MG/0.5 ML SYRINGE IVPUSH (16:01)
[2022-05-10 16:13] VITALS: BP 130/77; PULSE 71; RESP 20; TEMP 36.4; O2SAT 97
[2022-05-10 16:35] LABS: D Dimer High Sensitivity 195 NG/ML
[2022-05-10 16:55] LABS: Troponin-I High Sensitivity 5.7 ng/L (<3.5-35.0)
[2022-05-10 19:25] VITALS: BP 144/80; PULSE 80; RESP 22; TEMP 36.5; O2SAT 94
--- NOTE | 2022-05-10 20:18 | ED_ITS ---
HPI - Chest Pain General Chief Complaint: Chest Pain Stated Complaint: CP Time Seen by Provider: 05/10/22 14:25 Source: patient and old records reviewed Mode of arrival: other (from PACU) Limitations: no limitations History of Present Illness Pain location: substernal and left chest Quality: tightness and aching Relieving factors: nothing Exacerbating factors: inspiration, palpation and movement Context: recent surgery (just left PACU) Associated symptoms: dyspnea Related Data Home Medications Medication Instructions Recorded Confirmed zolpidem 10 mg tablet 10 mg PO BEDTIME PRN Sleep 08/26/20 05/05/22 lorazepam 0.5 mg tablet 0.5 mg PO BID 02/16/22 05/05/22 Previous Rx's Medication Instructions Recorded apixaban 5 mg tablet (Eliquis) 5 mg PO BID #180 tabs 09/13/21 metoprolol tartrate 25 mg tablet 25 mg PO BID #180 tabs 09/13/21 flecainide 150 mg tablet 150 mg PO Q12H #180 tabs 11/07/21 diltiazem HCl 240 mg 240 mg PO DAILY 90 days #90 caps 12/09/21 capsule,extended release 24 hr hydromorphone 2 mg tablet 2 mg PO Q4-6H PRN pain 7 days #42 05/10/22 (Dilaudid) tabs morphine 15 mg tablet,extended 15 mg PO Q12H pain severe 3 days 05/10/22 release (MS Contin) #6 tabs Allergies Allergy/AdvReac Type Severity Reaction Status Date / Time No Known Allergies Allergy Verified 05/10/22 14:35 [No Known Allergies*] [facility] Past Medical History Medical History Atrial fibrillation Essential hypertension History of depression Obesity (BMI 30-39.9) On anticoagulant therapy On beta adrian at home ELLEN (obstructive sleep apnea) PAF (paroxysmal atrial fibrillation) Surgical History History of cardioversion History of elbow surgery History of left knee surgery Hx of colonoscopy Hx of surgical procedure Family History Family History Mother No problems noted. Father No problems noted. Social History Social History Are you a primary landcare officer to a significant other at home: No Do you presently have visiting nurse or other home services: No Alcohol intake: never Patient Tobacco Use Status: Former Tobacco user Quit Date: Tobacco use type: Cigarette Years Smoked: 1 Advance Directives: Yes Advance Directives on File: Yes Advance Directives Date on File: 04/07/21 Current occupational status: retired 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 Physical Exam Vital Signs: Vital Signs: Last Vital Signs Temp 97.7 F 05/10/22 19:25 Pulse 80 05/10/22 19:25 Resp 22 H 05/10/22 19:25 BP 144/80 H 05/10/22 19:25 Pulse Ox 94 05/10/22 19:25 O2 Del Method 05/10/22 19:25 BMI result Body Mass Index 33.4 MDM - Chest Pain MDM Narrative Medical decision making narrative: 8 pm High sensitive troponin negative x2 D-dimer negative pain likely pleuritic discharge patient home on pain medication EKG without any ischemic changes patient feeling much better now Differential Diagnosis Differential diagnosis: Likely pneumothorax, unstable angina pectoris and atypical chest pain Medical Records Data Attestation: I reviewed the patient's medical records. Lab Data Attestation: I reviewed the patient's lab results. Result diagrams: 05/10/22 14:42 05/10/22 14:42 Labs: Lab Results 05/10/22 05/10/22 05/10/22 Range/Units 14:42 14:42 14:42 WBC 4.2 L (4.8-10.8) X10*3/uL RBC 5.10 (4.60-5.80) X10*6/uL Hgb 14.8 (14.0-18.0) g/dl Hct 44.6 (42.0-52.0) % MCV 87.5 (80.0-98.0) fL MCH 29.0 (27.0-33.0) pg MCHC 33.2 (31.0-36.0) g/dl RDW 13.1 (11.0-16.0) % Plt Count 190 (160-400) X10*3/uL MPV 8.9 L (9.4-12.4) fL Immature Gran % (Auto) 0.2 (0.0-0.4) % Neut % (Auto) 83.6 H (45-73) % Lymph % (Auto) 13.8 L (20-40) % [place] % (Auto) 1.7 L (2-11) % Eos % (Auto) 0.2 (0-4) % Baso % (Auto) 0.5 (0-2) % Lymph # (Auto) 0.6 L (1.2-4.9) X10*3/uL [place] # (Auto) 0.1 (0.1-1.2) X10*3/uL Eos # (Auto) 0.0 (0.0-0.4) X10*3/uL Baso # (Auto) 0.0 (0.0-0.2) X10*3/uL Abs Immat Gran (auto) 0.01 (0.00-0.03) X10*3/uL Absolute Neuts (auto) 3.5 (2.0-8.3) x10*3/uL Absolute Nucleated RBC 0.000 (0.0-0.012) X10*3/uL Nucleated RBC % (auto) 0.0 (0.0-0.2) /100WBC D-Dimer High Sensitivty NG/ML Sodium 138 (135-145) mmol/L Potassium 4.3 (3.3-5.1) mmol/L Chloride 104 (96-108) mmol/L Carbon Dioxide 24 (22-29) mmol/L Anion Gap 14 (12-20) BUN 10 (9-16) mg/dL Creatinine 0.90 (0.5-1.4) mg/dL Estim Creat Clear Calc 86.6 Estimated GFR > 60 Random Glucose 131 H (60-115) mg/dL Calcium 9.3 (8.4-10.2) mg/dL Magnesium 2.0 (1.6-2.6) mg/dL Total Bilirubin 0.5 (0.0-1.0) mg/dL Direct Bilirubin 0.2 (0.0-0.5) mg/dL AST 22 (5-37) U/L ALT 16 (0-40) U/L Alkaline Phosphatase 68 (39-117) U/L Troponin I High Sens 5.0 (<3.5-35.0) ng/L Total Protein 6.7 (6.5-8.0) g/dL Albumin 4.3 (3.5-5.0) g/dL Lipase 12 (8-78) U/L 05/10/22 05/10/22 Range/Units 16:21 16:21 WBC (4.8-10.8) X10*3/uL RBC (4.60-5.80) X10*6/uL Hgb (14.0-18.0) g/dl Hct (42.0-52.0) % MCV (80.0-98.0) fL MCH (27.0-33.0) pg MCHC (31.0-36.0) g/dl RDW (11.0-16.0) % Plt Count (160-400) X10*3/uL MPV (9.4-12.4) fL Immature Gran % (Auto) (0.0-0.4) % Neut % (Auto) (45-73) % Lymph % (Auto) (20-40) % [place] % (Auto) (2-11) % Eos % (Auto) (0-4) % Baso % (Auto) (0-2) % Lymph # (Auto) (1.2-4.9) X10*3/uL [place] # (Auto) (0.1-1.2) X10*3/uL Eos # (Auto) (0.0-0.4) X10*3/uL Baso # (Auto) (0.0-0.2) X10*3/uL Abs Immat Gran (auto) (0.00-0.03) X10*3/uL Absolute Neuts (auto) (2.0-8.3) x10*3/uL Absolute Nucleated RBC (0.0-0.012) X10*3/uL Nucleated RBC % (auto) (0.0-0.2) /100WBC D-Dimer High Sensitivty 195 NG/ML Sodium (135-145) mmol/L Potassium (3.3-5.1) mmol/L Chloride (96-108) mmol/L Carbon Dioxide (22-29) mmol/L Anion Gap (12-20) BUN (9-16) mg/dL Creatinine (0.5-1.4) mg/dL Estim Creat Clear Calc Estimated GFR Random Glucose (60-115) mg/dL Calcium (8.4-10.2) mg/dL Magnesium (1.6-2.6) mg/dL Total Bilirubin (0.0-1.0) mg/dL Direct Bilirubin (0.0-0.5) mg/dL AST (5-37) U/L ALT (0-40) U/L Alkaline Phosphatase (39-117) U/L Troponin I High Sens 5.7 (<3.5-35.0) ng/L Total Protein (6.5-8.0) g/dL Albumin (3.5-5.0) g/dL Lipase (8-78) U/L Discharge Plan Discharge Clinical Impression: Atypical chest pain Patient Disposition: Still a Patient Prescriptions: No Action Eliquis 5 mg tablet 5 mg PO BID Qty: 180 3RF metoprolol tartrate 25 mg tablet 25 mg PO BID Qty: 180 2RF flecainide 150 mg tablet 150 mg PO Q12H Qty: 180 2RF diltiazem HCl 240 mg capsule,extended release 24hr 240 mg PO DAILY 90 Days Qty: 90 3RF morphine [MS Contin] 15 mg tablet extended release 15 mg PO Q12H 3 Days Qty: 6 0RF Rx Instructions: Partial Fill upon patient request. hydromorphone [Dilaudid] 2 mg tablet 2 mg PO Q4-6H PRN (Reason: pain) 7 Days Qty: 42 0RF Rx Instructions: Partial Fill upon patient request. zolpidem 10 mg tablet 10 mg PO BEDTIME PRN (Reason: Sleep) lorazepam 0.5 mg tablet 0.5 mg PO BID
[2022-05-10 20:46] VITALS: BP 140/76; PULSE 78; RESP 16; TEMP 36.7; O2SAT 95
[2022-05-10] MEDS: HYDROmorphone HCl 1 MG/ML SYRINGE IVPUSH (20:48)
== END 2022-05-10 21:00 | disposition home or self-care (01) ==
PROVIDERS: Emergency Provider Emergency Medicine; PCP Family Medicine
DX: R07.89 Other chest pain (principal); I48.0 Paroxysmal atrial fibrillation; I10 Essential (primary) hypertension; Z79.01 Long term (current) use of anticoagulants; Z79.02 Long term (current) use of antithrombotics/antiplatelets; Z87.891 Personal history of nicotine dependence; E66.9 Obesity, unspecified; Z68.33 Body mass index [BMI] 33.0-33.9, adult
CPT/HCPCS: 36415; 71045; 80048; 80076; 83690; 83735; 84484; 85025; 85379; 93005; 96374; 96376; 99284; J1170

== ENCOUNTER → 2022-05-11 10:05 | Outpatient (BNVA) | payer MEDICARE, MEDICAID, SELFPAY | PROVIDERS: PCP Family Medicine; Visit Provider Physician Assistant | DX: Z47.89 Encounter for other orthopedic aftercare (principal); I48.0 Paroxysmal atrial fibrillation | CPT/HCPCS: 99212 ==

== ENCOUNTER → 2022-05-15 09:19 | Outpatient (BNVA) | payer MEDICARE, MEDICAID, SELFPAY | PROVIDERS: Visit Provider Physician Assistant | DX: M75.102 Unspecified rotator cuff tear or rupture of left shoulder, not specified as traumatic (principal) ==

== ENCOUNTER → 2022-06-12 10:00 | Outpatient (BNVA) | payer MEDICARE, MEDICAID, SELFPAY | PROVIDERS: PCP Family Medicine; Visit Provider Physician Assistant | DX: Z47.89 Encounter for other orthopedic aftercare (principal); Z98.890 Other specified postprocedural states | CPT/HCPCS: 99212 ==

== ENCOUNTER → 2022-07-24 09:27 | Outpatient (BNVA) | payer MEDICARE, MEDICAID, SELFPAY | PROVIDERS: PCP Family Medicine; Visit Provider Physician Assistant | DX: Z47.89 Encounter for other orthopedic aftercare (principal); Z87.39 Personal history of other diseases of the musculoskeletal system and connective tissue | CPT/HCPCS: 99212 ==

== ENCOUNTER → 2022-09-19 09:43 | Outpatient (BNVA) | payer MEDICARE, MEDICAID, SELFPAY | PROVIDERS: PCP Family Medicine; Referring Provider Family Medicine; Visit Provider Internal Medicine | DX: I48.0 Paroxysmal atrial fibrillation (principal); G47.33 Obstructive sleep apnea (adult) (pediatric); Z79.01 Long term (current) use of anticoagulants; Z79.899 Other long term (current) drug therapy | CPT/HCPCS: 93005; 99212 ==

== ENCOUNTER 2022-09-29 10:00 | Outpatient (RCR) | payer MEDICARE, MEDICAID, SELFPAY ==
--- NOTE | 2022-05-15 10:30 | MHC.PT.EP ---
[facility] [place] Office [place] Office [place] Office [address] Cindy Durand [address] [phone] F: [phone] F: [phone] F: [phone] F: [phone] Physical Therapy Plan of Care Date of Evaluation: Date of Surgery: 05/10/22 Diagnosis: Left RTC repair (SS/IS) () Assessment: REINALDO IS A PLEASANT 66 YO GENTLEMAN WHO PRESENTS POD #5 FOR ORTHOPEDIC FOLLOW UP AND PT EVALUATION. UPON EXAM HE DEMONSTRATES THE EXPECTED IMPAIRMENTS OF DECREASED ROM, DECREASED STRENGTH, ALTERED POSTURE AND POSITIONING, INCREASED UPPER TRAP GUARDING, AND INCREASED PAIN AND EDEMA. FUNCTIONAL LIMITATIONS INCLUDE DECREASED ABILITY TO PERFORM HOMEMAKING AND SELF-CARE TASKS, DECREASED ABILITY TO PERFORM PUSHING, PULLING, LIFTING AND REACHING. INABILITY TO DRIVE AND PERFORM WORK TASKS, DECREASED PARTICIPATION IN COMMUNITY AND RECREATIONAL ACTIVITIES AND DISRUPTED SLEEP. THE PT IS A GOOD CANDIDATE FOR SKILLED PT DUE TO AGE, POTENTIAL REMEDIATION OF IMPAIRMENTS, TYPICAL DISEASE/CONDITION PROGRESSION AND PROGNOSIS, COMORBIDITIES, AND MOTIVATION. PT WOULD BENEFIT FROM TAILORED PROGRAM OF THERAPEUTIC ACTIVITIES, FUNCTIONAL TRAINING, POSTURAL EDUCATION, NEUROMUSCULAR RE-EDUCATION, AND MODALITIES NEEDED. Frequency and Duration: The patient will be seen 2 X WEEK FOR 12 WEEKS Short Term Goals: INITIATE HEP AND PROMOTE SELF MANAGEMENT OF SYMPTOMS Service Supervisor Goals: FULL, PAIN FREE ROM FULL UE STRENGTH, PAIN FREE TO PERFORM HOMEMAKING AND SELF CARE TASKS WITHOUT RESTRICTION AND PAIN FREE TO PLACE OBJECT AT MINIMUM OF 5# INTO CABINET AT SHOULDER HEIGHT Treatment Plan: Modalities to reduce pain, spasms and effusion. Manual therapy to restore motion and function. Therapeutic exercise to improve strength and flexibility. Neuromuscular re-education for posture and balance. Therapeutic activities to return to functional activities of daily living. Electronically signed by: CEDRICK DYE PT, DPT Please sign and return to therapist. Thank you for your referral.
== END 2023-02-15 10:58 | disposition home or self-care (01) ==
LOC: HO.PT 10:00
PROVIDERS: Visit Provider Physician Assistant
DX: M75.102 Unspecified rotator cuff tear or rupture of left shoulder, not specified as traumatic (principal)
CPT/HCPCS: 97110; 97140; 97161; 97530

== ENCOUNTER → 2022-10-04 09:08 | Outpatient (BNVA) | payer MEDICARE, MEDICAID, SELFPAY | PROVIDERS: PCP Family Medicine; Visit Provider Internal Medicine | DX: G47.33 Obstructive sleep apnea (adult) (pediatric) (principal); G47.34 Idiopathic sleep related nonobstructive alveolar hypoventilation; E66.9 Obesity, unspecified; Z68.32 Body mass index [BMI] 32.0-32.9, adult | CPT/HCPCS: 99212 ==

== ENCOUNTER → 2022-10-16 09:43 | Outpatient (BNVA) | payer MEDICARE, MEDICAID, SELFPAY | PROVIDERS: PCP Family Medicine; Visit Provider Physician Assistant | DX: M75.102 Unspecified rotator cuff tear or rupture of left shoulder, not specified as traumatic (principal); Z98.890 Other specified postprocedural states | CPT/HCPCS: 99212 ==

== ENCOUNTER 2022-11-06 14:23 | Outpatient (REF) | payer MEDICARE, MEDICAID, SELFPAY ==
--- NOTE | ~2022-11-06 | XR_ITS ---
EXAMINATION: XR KNEE, RIGHT XR KNEE AP STANDING CLINICAL INFORMATION: Pain. COMPARISON: Right knee radiographs dated 06/03/2021. TECHNIQUE: Four views of the right knee. AP bilateral standing view of the knees was obtained. FINDINGS: There is mild bony demineralization. The lateral and medial joint space compartments of the right knee are well-maintained and show mild peripheral osteophyte formation. There is marked narrowing laterally of the patellofemoral compartment, with peripheral osteophyte formation. There is no right knee joint effusion. No foreign body is seen. The lateral and medial joint space compartments of the left knee are well-maintained and show mild peripheral osteophyte formation. This is more pronounced medially. No fracture or dislocation is seen. No significant varus or valgus configuration is seen bilaterally. XR/XR knee RT 2V IMPRESSION: 1. There is tricompartment osteoarthritic change of the right knee, most pronounced of the patellofemoral compartment, where it is severe. 2. There is mild osteoarthritic change of the lateral and medial joint space compartments of the left knee. 3. No fracture, dislocation or right knee joint effusion is seen.
--- NOTE | ~2022-11-06 | XR_ITS ---
EXAMINATION: XR KNEE, RIGHT XR KNEE AP STANDING CLINICAL INFORMATION: Pain. COMPARISON: Right knee radiographs dated 06/03/2021. TECHNIQUE: Four views of the right knee. AP bilateral standing view of the knees was obtained. FINDINGS: There is mild bony demineralization. The lateral and medial joint space compartments of the right knee are well-maintained and show mild peripheral osteophyte formation. There is marked narrowing laterally of the patellofemoral compartment, with peripheral osteophyte formation. There is no right knee joint effusion. No foreign body is seen. The lateral and medial joint space compartments of the left knee are well-maintained and show mild peripheral osteophyte formation. This is more pronounced medially. No fracture or dislocation is seen. No significant varus or valgus configuration is seen bilaterally. XR/XR knee standing BI IMPRESSION: 1. There is tricompartment osteoarthritic change of the right knee, most pronounced of the patellofemoral compartment, where it is severe. 2. There is mild osteoarthritic change of the lateral and medial joint space compartments of the left knee. 3. No fracture, dislocation or right knee joint effusion is seen.
== END 2022-11-06 14:24 | disposition home or self-care (01) ==
LOC: HO.HOSX 14:23
PROVIDERS: Visit Provider Physician Assistant
DX: M17.11 Unilateral primary osteoarthritis, right knee (principal)
CPT/HCPCS: 20610; 73560; 73565; 99212; J1040

== ENCOUNTER 2022-11-17 09:45 | Outpatient (REF) | payer MEDICARE, MEDICAID, SELFPAY ==
[2022-11-17 10:32] LABS: COVID-19 Test Negative (Negative); IDNOW Serial# 08D9AD1C
== END 2022-11-17 09:46 | disposition home or self-care (01) ==
LOC: HO.LAB 09:45
PROVIDERS: Visit Provider Internal Medicine
DX: Z20.822 Contact with and (suspected) exposure to COVID-19 (principal)
CPT/HCPCS: 87635; C9803

== ENCOUNTER 2023-01-04 10:16 | Outpatient (REF) | payer MEDICARE, MEDICAID, SELFPAY ==
--- NOTE | ~2023-01-04 | XR_ITS ---
EXAMINATION: XR PELVIS CLINICAL INFORMATION: Pain COMPARISON: None available. TECHNIQUE: AP view of the pelvis. FINDINGS: Mild arthritis at both hip joints with joint space narrowing and osteophyte formation, left greater than right. Bones of the pelvis are normal. Sacroiliac joints are normal. Degenerative changes of the visualized lower lumbar spine. Soft tissues are normal. XR/XR pelvis 1-2V IMPRESSION: Mild bilateral hip osteoarthritis.
== END 2023-01-04 10:17 | disposition home or self-care (01) ==
LOC: HO.HOSX 10:16
PROVIDERS: Visit Provider Orthopaedic Surgery
DX: M76.892 Other specified enthesopathies of left lower limb, excluding foot (principal)
CPT/HCPCS: 72170; 99212

== ENCOUNTER 2023-03-26 16:47 | Emergency (ER) | payer MEDICARE, OTHER, SELFPAY ==
[2023-03-26 16:53] VITALS: BP 148/83; BP 156/82; PULSE 57; PULSE 58; RESP 18; TEMP 37.4; O2SAT 96; O2SAT 97; BMI 33.1
[2023-03-26] MEDS: Diphth,Pertus(ACell),Tet Adult 0.5 ML SYRINGE IM (19:46)
[2023-03-26 20:00] VITALS: BP 137/79; PULSE 55; RESP 16; TEMP 36.6; O2SAT 98
--- NOTE | 2023-03-26 20:14 | ED.ANIMALBIT ---
HPI - Animal Bite General Chief Complaint: Weakness Stated Complaint: dog bite Time Seen by Provider: 03/26/23 18:32 Source: patient and family Mode of arrival: EMS History of Present Illness HPI narrative: 67-year-old male who is on chronic anticoagulation presents via EMS after he was bitten by a vaccinated dog. Patient is unsure of last tetanus shot. Related Data Home Medications Medication Instructions Recorded Confirmed zolpidem 10 mg tablet 10 mg PO BEDTIME PRN Sleep 08/26/20 09/19/22 lorazepam 0.5 mg tablet 0.5 mg PO BID 02/16/22 09/19/22 Previous Rx's Medication Instructions Recorded metoprolol tartrate 25 mg tablet 25 mg PO BID #180 tabs 09/26/22 diltiazem HCl 240 mg 240 mg PO DAILY 90 days #90 caps 10/16/22 capsule,extended release 24 hr apixaban 5 mg tablet (Eliquis) 5 mg PO BID #180 tabs 11/23/22 flecainide 150 mg tablet 150 mg PO Q12H #180 tabs 12/22/22 amoxicillin 875 mg-potassium 1 tab PO BID 5 days #10 tabs 03/26/23 clavulanate 125 mg tablet Allergies Allergy/AdvReac Type Severity Reaction Status Date / Time No Known Allergies Allergy Verified 11/06/22 12:59 [No Known Allergies*] Review of Systems Review of Systems: Pertinent positives and negatives as stated in HPI PMFSH Past Medical History Source: nursing notes reviewed Medical History Atrial fibrillation Essential hypertension History of depression Nocturnal hypoxemia Obesity (BMI 30-39.9) On anticoagulant therapy On beta adrian at home ELLEN (obstructive sleep apnea) PAF (paroxysmal atrial fibrillation) Surgical History History of cardioversion History of elbow surgery History of left knee surgery Hx of colonoscopy Hx of rotator cuff surgery Hx of surgical procedure Family History Family History Mother No problems noted. Father No problems noted. Social History Social History Household Members: None Are you a primary career guidance counselor to a significant other at home: No Do you presently have visiting nurse or other home services: No Alcohol intake: never Patient Tobacco Use Status: Former Tobacco user Quit Date: Tobacco use type: Cigarette Years Smoked: 1 Advance Directives: Yes Advance Directives on File: Yes Advance Directives Date on File: 04/07/21 Current occupational status: retired 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 Physical Exam ED Vital Signs: Vital Signs - 24 hr 03/26/23 16:53 03/26/23 20:00 Temperature 99.4 F 97.9 F Pulse Rate 57 55 Respiratory Rate 18 16 Blood Pressure 156/82 H 137/79 Pulse Oximetry 97 98 Oxygen Delivery Method Room Air Room Air BMI result Body Mass Index 33.1 VITAL SIGNS: Reviewed. GENERAL: Well developed, well nourished, in no acute distress. HEAD: Normocephalic/atraumatic EYES: PERRLA, EOMI LUNGS: Normal breath sounds. No adventitious sounds or accessory muscle use. SpO2<98> CARDIOVASCULAR: Regular rate and rhythm without noted murmurs ABDOMEN: Soft, non-tender, non-distended with bowel sounds. MUSCULOSKELETAL: No tenderness, deformities, or effusions noted on gross inspection. EXTREMITIES: No cyanosis, clubbing or edema. LLE: There is a laceration to the medial aspect of the distal left lower extremity and a corresponding puncture site over the lateral malleolus. SKIN: Inspection of the skin reveals no rashes NEUROLOGIC: Alert and oriented x 4. Strength and sensation to light touch were grossly intact x 4. Medications Administered Discontinued Medications Generic Name Dose Route Start Last Admin Trade Name Freq PRN Reason Stop Dose Admin Amoxicillin/Clavulanate Potassium 875 mg 03/26/23 20:18 03/26/23 20:27 Amoxicillin/Potassium Clav 875 Mg Tablet PO 03/26/23 20:19 875 mg ONCE ONE Administration Diphtheria/Tetanus/Acell Pertussis 0.5 ml 03/26/23 19:26 03/26/23 19:46 Diphth,Pertus(Acell),Tet Adult 0.5 Ml Syringe IM 03/26/23 19:27 0.5 ml .ONCE ONE Administration Medical Decision Making Medical Decision Making MDM Narrative: This is a 67-year-old male who has sustained a dog bite from a fully vaccinated dog, he did receive a Tdap, laceration was anesthetized then extensively irrigated and repaired. The puncture site was extensively irrigated after anesthetizing it. Afterwards a non adherent gauze was applied to the laceration and an Nicholas wrap over the top of that with to help bleeding control. Patient was then discharged home. Differential Diagnosis Differential Diagnoses: The differential diagnosis associated with the presentation includes Please see the discussion above Admission/Observation Consideration of admission/observation: Escalation of care including admission/observation considered Please see the discussion above Procedures Laceration Laceration 1: Site: lower extremity Side (If applicable): left Size (cm): 3 Description: linear Depth: involves muscle layer Local Anesthetic: lidocaine 1% Amount of anesthesia used (mL): 4 Pre-repair: wound explored, irrigated extensively and deep structures intact Skin layer closed with: nylon Size (cm): 4-0 Number of sutures: 4 Technique: horizontal mattress (4) Subcutaneous layer closed with: vicryl Size: 4-0 Number of sutures: 2 Technique: simple, interrupted Discharge Plan Discharge Clinical Impression: Dog bite, Laceration of left leg Patient Disposition: Home, Self-Care Instructions: Animal Bite (ED), Care For Your Stitches (ED), Laceration (ED) Additional Instructions: 1. Recommend [id number] Tylenol/ibuprofen for pain control. 2. Recommend cleansing your lacerations with soap and water, blot dry, then apply antibiotic ointment and reapply the Nicholas wrap for compression. 3. You will need to follow-up with your primary care doctor or return to this emergency room for the removal of your 4 stitches in 7-10 days. Return to the ER for any worsening symptoms. Prescriptions: New amoxicillin-pot clavulanate 875-125 mg tablet 1 tab PO BID 5 Days Qty: 10 0RF No Action metoprolol tartrate 25 mg tablet 25 mg PO BID Qty: 180 2RF diltiazem HCl 240 mg capsule,extended release 24hr 240 mg PO DAILY 90 Days Qty: 90 3RF Eliquis 5 mg tablet 5 mg PO BID Qty: 180 3RF flecainide 150 mg tablet 150 mg PO Q12H Qty: 180 2RF zolpidem 10 mg tablet 10 mg PO BEDTIME PRN (Reason: Sleep) lorazepam 0.5 mg tablet 0.5 mg PO BID Referrals: Leila Pastrana MD [Primary Care Provider] - Interventions: ED Discharge Assessment Last Done: 03/26/23 20:30 Discharge Date/Time: 03/26/23 20:30
[2023-03-26] MEDS: Amoxicillin/Potassium Clav 875 MG TABLET PO (20:27)
== END 2023-03-26 20:30 | disposition home or self-care (01) ==
PROVIDERS: Emergency Provider Student in an Organized Health Care Education/Training Program; PCP Family Medicine
DX: S81.852A Open bite, left lower leg, initial encounter (principal); W54.0XXA Bitten by dog, initial encounter; Y93.9 Activity, unspecified; Y92.9 Unspecified place or not applicable; Y99.9 Unspecified external cause status; Z79.899 Other long term (current) drug therapy; I10 Essential (primary) hypertension; I48.0 Paroxysmal atrial fibrillation; Z79.01 Long term (current) use of anticoagulants
CPT/HCPCS: 12032; 90471; 90715; 99283; 99284

== ENCOUNTER 2023-04-06 09:24 | Outpatient (REF) | payer MEDICARE, OTHER, SELFPAY ==
--- NOTE | 2023-04-06 10:05 | PFT_ITS ---
INDICATION: Dyspnea. SPIROMETRY: FEV1 to FVC of 85% with an FEV1 of 3.21 L, which is 110% predicted and FVC of 3.77 L, which is 98% predicted. No significant response to bronchodilator is noted. Maximum voluntary ventilation 63% predicted. LUNG VOLUMES: Total lung capacity 94% predicted with an expiratory reserve volume of 43% predicted. DIFFUSION CAPACITY: DLCO 107% predicted. COMPARISONS: None. INTERPRETATION: No obstructive and no restrictive ventilatory defects identified. No significant response to bronchodilator is noted. Lung volumes are within normal limits except for decrease in expiratory reserve volume secondary to an elevated BMI and diffusion capacity is completely normal. Clinical correlation warranted. MD HANNAH Murillo/FRANKLYN / [id number]
== END 2023-04-06 09:25 | disposition home or self-care (01) ==
LOC: HO.RESP 09:24
PROVIDERS: PCP Family Medicine; Visit Provider Internal Medicine
DX: E66.9 Obesity, unspecified (principal); G47.33 Obstructive sleep apnea (adult) (pediatric)
CPT/HCPCS: 94010; 94727; 94729

== ENCOUNTER → 2023-04-06 10:05 | Outpatient (BNV) | payer MEDICARE, SELFPAY | PROVIDERS: PCP Family Medicine; Visit Provider Hospitalist | DX: R06.09 Other forms of dyspnea (principal) | CPT/HCPCS: 94060; 94727; 94729 ==

== ENCOUNTER 2023-04-12 10:03 | Outpatient (AMB) | payer MEDICARE, SELFPAY ==
--- NOTE | 2023-04-12 10:04 | MHC.OFFVIS ---
Intake Vital Signs 04/12/23 10:11 Height 5 ft 6 in Weight 205 lb 0.478 oz BMI 33.1 BP 130/88 Blood Pressure Location Lt brachial Position Sitting Pulse 56 Intake Visit Reasons: 6 mth f/u Intake Note: 6 month follow up Licensing Worker Required: No Accompanied by: Self / Same As Patient Allergies No Known Allergies [No Known Allergies*] Allergy (Verified 04/12/23 10:06) Medication List - Last Reconciled 04/12/23 by Rodolfo Sims MD amoxicillin-pot clavulanate 875-125 mg 1 tab PO BID 5 days apixaban (Eliquis) 5 mg PO BID diltiazem HCl 240 mg PO DAILY 90 days flecainide 150 mg PO Q12H lorazepam 0.5 mg PO BID metoprolol tartrate 25 mg PO BID zolpidem 10 mg PO BEDTIME PRN HPI HPI Comments History of Present Illness Details Donald returns for follow-up regarding paroxysmal atrial fibrillation. He is maintained on a combination of flecainide, diltiazem as well as metoprolol. He is also on anticoagulation with Eliquis. To recall, he came for shoulder surgery in 2019. At that time he was found to be in atrial fibrillation. Then cardioverted and started on flecainide. He had another recurrence, but we increased flecainide dose and he converted to sinus. In general, he is doing fine. Has lost lot of weight. Seems to be getting along okay. No recurrent symptoms. No atrial fibrillation recurrence. [facility] Medical History Atrial fibrillation Essential hypertension History of depression Nocturnal hypoxemia Obesity (BMI 30-39.9) On anticoagulant therapy On beta adrian at home ELLEN (obstructive sleep apnea) PAF (paroxysmal atrial fibrillation) Surgical History History of cardioversion History of elbow surgery History of left knee surgery Hx of colonoscopy Hx of rotator cuff surgery Hx of surgical procedure Family History Mother No problems noted. Father No problems noted. Social History Household Members: None Are you a primary direct care supervisor to a significant other at home: No Do you presently have visiting nurse or other home services: No Alcohol intake: never Patient Tobacco Use Status: Former Tobacco user Quit Date: Tobacco use type: Cigarette Years Smoked: 1 Advance Directives Date on File: 04/07/21 Current occupational status: retired 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 Review of Systems Const Denies weakness ENT Denies dizziness Card Denies chest pain, Denies chest pain with activity, Denies syncope, Denies rapid heart rate, Denies pedal edema, Denies edema, Denies leg edema, Denies lightheadedness, Denies palpitations, Denies dyspnea, Denies dyspnea on exertion and Denies orthopnea Resp Denies cough, Denies dyspnea and Denies dyspnea on exertion GI Denies hematochezia and Denies change in stool character Musc Denies abnormal gait, Denies muscle cramps, Denies muscle weakness, Denies numbness, Denies radiating pain into limb and Denies tingling Neuro Denies abnormal gait, Denies dizziness, Denies syncope, Denies numbness, Denies tingling and Denies weakness Endo Denies palpitations Physical Exam Vital Signs: Last Vital Signs Pulse 56 04/12/23 10:11 BP 130/88 04/12/23 10:11 BMI result Body Mass Index 33.1 Const General: comfortable and no acute distress Orientation/consciousness: patient oriented x3 HEENT Other: Unremarkable Head: Yes normal to inspection Neck Neck: Yes normal visual inspection Chest Chest palpation & inspection: normal inspection of the chest Resp Auscultation: clear to auscultation bilaterally Cardio Palpation: normal PMI Heart sounds: S1 normal heart sound present, S2 normal heart sound present, no gallops, no murmurs and no rubs GI Palpation (GI): Soft to palpation Back/Spine/Pelvis Other: unremarkable Skin General skin exam: no rashes or lesions noted Neuro General: patient oriented x3 Extrem General: Yes normal to inspection Psych Mental Status: mental status grossly normal Office Procedures EKG Details: EKG with sinus bradycardia, 56/Min; no significant ST-T changes and otherwise unremarkable. [place] [id number], Complete Results Reviewed Results Reviewed: Echocardiogram-normal LVEF, 55-60 %; no significant valvular pathology Myocardial perfusion imaging-normal perfusion; no ischemia Coronary CTA did not show any significant obstructive disease. Assessment & Plan Assessment & Plan (1) PAF (paroxysmal atrial fibrillation): Code(s): I48.0 - Paroxysmal atrial fibrillation Plan: Stable on current regimen including flecainide, metoprolol and diltiazem. As he is losing a lot of weight, hopefully less likely to have recurrent atrial fibrillation and hence we can cut back on the flecainide to 100 mg b.i.d.. We discussed about this today. (2) Encounter for monitoring flecainide therapy: Code(s): Z51.81 - Encounter for therapeutic drug level monitoring; Z79.899 - Other extermination supervisor (current) drug therapy Plan: Stable. Dose reduction as above. (3) ELLEN (obstructive sleep apnea): Comment: He has mild obstructive sleep apnea, He has opted for conservative measures. He is trying to lose weight successfully. At present denies any his symptoms of ELLEN. HIS CPAP DEVICE HAS BEEN TAKEN AWAY. TX : Encouraged to continue losing weight, image it goal would be to bring his weight below 190 lb. Code(s): G47.33 - Obstructive sleep apnea (adult) (pediatric) Plan: Not a regular CPAP. Mainly treated by weight loss. Hopefully can keep the weight down. Medications: New flecainide 100 mg PO Q12H 180 tabs 3RF 90 days Discontinued flecainide Discontinued Reason: Doctor's Order 150 mg PO Q12H 180 tabs 2RF I48.0 - Paroxysmal atrial fibrillation Coding Level of Care Code Est Pt Level 4 (40058) Diagnoses PAF (paroxysmal atrial fibrillation) I48.0 Encounter for monitoring flecainide therapy Z51.81; Z79.899 ELLEN (obstructive sleep apnea) G47.33 CPT Codes EKG - CPT: 52232-[id number], Complete ([id number])
[2023-04-12 10:11] VITALS: BP 130/88; PULSE 56; BMI 33.1
== END 2023-04-12 10:21 | disposition home or self-care (01) ==
PROVIDERS: PCP Family Medicine; Referring Provider Family Medicine; Visit Provider Internal Medicine
DX: I48.0 Paroxysmal atrial fibrillation (principal); Z51.81 Encounter for therapeutic drug level monitoring; Z79.899 Other long term (current) drug therapy; G47.33 Obstructive sleep apnea (adult) (pediatric)
CPT/HCPCS: 93010; 99214

== ENCOUNTER → 2023-04-12 10:03 | Outpatient (BNVA) | payer MEDICARE, OTHER, SELFPAY | PROVIDERS: PCP Family Medicine; Referring Provider Family Medicine; Visit Provider Internal Medicine | DX: I48.0 Paroxysmal atrial fibrillation (principal); G47.33 Obstructive sleep apnea (adult) (pediatric); Z79.01 Long term (current) use of anticoagulants; Z79.899 Other long term (current) drug therapy | CPT/HCPCS: 93005; 99212 ==

== ENCOUNTER 2023-04-30 13:42 | Outpatient (RCR) | payer MEDICARE, MEDICAID, SELFPAY | END 2023-05-15 16:07 | disposition home or self-care (01) | LOC: HO.WCC 13:42 | PROVIDERS: PCP Family Medicine; Visit Provider Physician Assistant | DX: S81.852D Open bite, left lower leg, subsequent encounter (principal); W54.0XXD Bitten by dog, subsequent encounter | CPT/HCPCS: 97597; 99212; 99213 ==

== ENCOUNTER 2023-05-02 08:44 | Emergency (ER) | payer MEDICARE, MEDICAID, SELFPAY ==
[2023-05-02 09:13] VITALS: BP 137/76; PULSE 50; RESP 19; TEMP 36.6; O2SAT 99; BMI 33.4
--- NOTE | 2023-05-02 09:18 | ECG_ITS ---
Test Reason : AFIB Blood Pressure : / mmHG Vent. Rate : 048 BPM Atrial Rate : 048 BPM P-R Int : 202 ms QRS Dur : 100 ms QT Int : 444 ms P-R-T Axes : 022 -02 018 degrees QTc Int : 396 ms Sinus bradycardia Otherwise normal ECG When compared with ECG of 10-MAY-2022 14:30, QT has shortened Heart rate has decreased Referred By: Generic ED Physician Electronically Signed By:CUCO BECKMAN
[2023-05-02 09:47] LABS: COVID-19 Test Positive (Negative); IDNOW Serial# BCCEAD1C
--- NOTE | 2023-05-02 09:58 | ED_ITS ---
HPI - URI/Sore Throat General Chief Complaint: Upper Respiratory Symptoms Stated Complaint: cough sore throat Time Seen by Provider: 05/02/23 09:58 Source: patient Mode of arrival: ambulatory Limitations: no limitations History of Present Illness HPI Narrative: 67 yo male with history of afib on eliquis, HTN, obesity, ELLEN who presents to the ER for evaluation of cough and chest wall pain for the last 5 days. he s tates he has had a productive cough at night and chest soreness when he coughs. it has been keeping him up at night. he also reports some decreased appetite. otherwise he denies fever, chills, N/V/D, abdominal pain, SOB or CAMPBELL. no leg swelling. no exertional chest pains. no known sick contact. he has been staying away from family since he has been ill. MD elicited complaint: cough Onset (ago): day(s) (5) Consistency: intermittent Severity: moderate Description of mucous: clear Able to tolerate fluids by mouth: Yes Exacerbating factors: supine positioning Relieving factors: OTC cold medicine Associated symptoms: myalgias, headache, cough and chest pain Treatments prior to arrival: none Related Data Home Medications Medication Instructions Recorded Confirmed zolpidem 10 mg tablet 10 mg PO BEDTIME PRN Sleep 08/26/20 04/12/23 lorazepam 0.5 mg tablet 0.5 mg PO BID 02/16/22 04/12/23 Previous Rx's Medication Instructions Recorded metoprolol tartrate 25 mg tablet 25 mg PO BID #180 tabs 09/26/22 diltiazem HCl 240 mg 240 mg PO DAILY 90 days #90 caps 10/16/22 capsule,extended release 24 hr apixaban 5 mg tablet (Eliquis) 5 mg PO BID #180 tabs 11/23/22 amoxicillin 875 mg-potassium 1 tab PO BID 5 days #10 tabs 03/26/23 clavulanate 125 mg tablet flecainide 100 mg tablet 100 mg PO Q12H 90 days #180 tabs 04/12/23 benzonatate 100 mg capsule 100 mg PO TID PRN cough #20 caps 05/02/23 guaifenesin 1,200 mg tablet, 1,200 mg PO BID #14 tabs 05/02/23 extended release 12 hr (Mucinex) Allergies Allergy/AdvReac Type Severity Reaction Status Date / Time No Known Allergies Allergy Verified 05/02/23 09:13 [No Known Allergies*] Review of Systems Review of Systems: Yes all other systems are reviewed and are negative [facility] Past Medical History Medical History Atrial fibrillation Essential hypertension History of depression Nocturnal hypoxemia Obesity (BMI 30-39.9) On anticoagulant therapy On beta adrian at home ELLEN (obstructive sleep apnea) PAF (paroxysmal atrial fibrillation) Surgical History History of cardioversion History of elbow surgery History of left knee surgery Hx of colonoscopy Hx of rotator cuff surgery Hx of surgical procedure Family History Family History Mother No problems noted. Father No problems noted. Social History Social History Household Members: None Are you a primary home care and home health aides teacher to a significant other at home: No Do you presently have visiting nurse or other home services: No Alcohol intake: never Patient Tobacco Use Status: Former Tobacco user Quit Date: Tobacco use type: Cigarette Years Smoked: 1 Advance Directives: Yes Advance Directives on File: Yes Advance Directives Date on File: 04/07/21 Current occupational status: retired 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 Physical Exam Vital Signs: Vital Signs: Last Vital Signs Temp 98 F 05/02/23 09:13 Pulse 50 05/02/23 09:13 Resp 19 05/02/23 09:13 BP 137/76 05/02/23 09:13 Pulse Ox 99 05/02/23 09:13 O2 Del Method Room Air 05/02/23 09:13 BMI result Body Mass Index 33.4 Appearance: Alert. Oriented X3. No acute distress. Head: normocephalic, atraumatic. Eyes: Pupils equal, round and reactive to light. ENT: Pharynx normal. No tonsillar swelling or exudate. Neck: Normal inspection. Neck supple. CVS: bradycardic, regular rhythm, no murmur. Pulses normal. Respiratory: No respiratory distress. Breath sounds normal. speaks in complete sentences Abdomen: Soft and nontender. +BS x4 Skin: Skin warm and dry. Normal skin color. Normal skin turgor. No rashes. Extremities: No lower extremity edema. No joint swelling. Neuro/psych: Oriented X 3. grossly normal, nonfocal. Normal speech and cognition. Medical Decision Making Medical Decision Making [facility] Narrative: 67 yo male presenting with productive cough and chest discomfort w/ coughing. VSS and lungs are clear on exam. no rhonchi to suggest PNA. no hx asthma or COPD, nonsmoker. SPo2 99%. doubt PNA. he is positive for COVID. he has had symptoms for 5 days. does not qualify for paxlovid. at this time comfortable w/ discharge home with antitussive and supportive care. we discussed quarantine rec and return precautions. all questions answered Differential Diagnosis Differential Diagnoses: The differential diagnosis associated with the presentation includes strep, covid, flu, rsv, other viral syndrome, bronchitis, pneumonia, low clinical suspicion for ACS or cardiac etiology Admission/Observation Consideration of admission/observation: Escalation of care including admission/observation considered elderly male w/ cardiac risk factors here with covid and chest discomfort, considered obs Lab Data [facility] Lab Attestation statement: I reviewed the patient's lab results. 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 Your exam and oxygen levels were normal. Rest. Drink plenty of fluids. Do not go out in public while you are not feeling well or if you have symptoms of COVID. Once your symptoms have resolved you can resume normal life, recommend wearing a mask for a few days around high risk family members. Take over the counter cold/flu medications as needed for your symptoms. Take Tylenol and/or Motrin as needed for fevers and body aches. Follow up with your doctor as needed If you develop new or worsening symptoms call 911 or come back to the ER for further evaluation. Prescriptions: New benzonatate 100 mg capsule 100 mg PO TID PRN (Reason: cough) Qty: 20 0RF Mucinex 1,200 mg tablet extended release 12hr 1,200 mg PO BID Qty: 14 0RF No Action metoprolol tartrate 25 mg tablet 25 mg PO BID Qty: 180 2RF diltiazem HCl 240 mg capsule,extended release 24hr 240 mg PO DAILY 90 Days Qty: 90 3RF Eliquis 5 mg tablet 5 mg PO BID Qty: 180 3RF amoxicillin-pot clavulanate 875-125 mg tablet 1 tab PO BID 5 Days Qty: 10 0RF zolpidem 10 mg tablet 10 mg PO BEDTIME PRN (Reason: Sleep) lorazepam 0.5 mg tablet 0.5 mg PO BID flecainide 100 mg tablet 100 mg PO Q12H 90 Days Qty: 180 3RF Interventions: ED Discharge Assessment Last Done: 05/02/23 10:14 Discharge Date/Time: 05/02/23 10:16
[2023-05-02 09:59] LABS: IDNOW Serial# 08D9AD1C; Influenza A Negative (Negative); Influenza B2 Negative (Negative)
== END 2023-05-02 10:16 | disposition home or self-care (01) ==
LOC: HO.ED 10:12
PROVIDERS: Emergency Provider Emergency Medicine; PCP Family Medicine
DX: U07.1 COVID-19 (principal); R05.9 Cough, unspecified; R07.89 Other chest pain; Z79.899 Other long term (current) drug therapy; I10 Essential (primary) hypertension; I48.0 Paroxysmal atrial fibrillation; Z79.01 Long term (current) use of anticoagulants
CPT/HCPCS: 87502; 87635; 93005; 99283; 99284

== ENCOUNTER → 2023-07-09 08:47 | Outpatient (BNVA) | payer MEDICARE, SELFPAY | PROVIDERS: PCP Family Medicine; Visit Provider Internal Medicine ==

== ENCOUNTER 2023-11-06 13:35 | Outpatient (AMB) | payer OTHER, SELFPAY ==
[2023-11-06 13:39] VITALS: BP 140/90; PULSE 63; BMI 34.4
--- NOTE | 2023-11-06 13:39 | MHC.OFFVIS ---
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 Accompanied by: Self / Same As Patient Allergies No Known Allergies [No Known Allergies*] Allergy (Verified 11/06/23 13:39) Medication List - Last Reconciled 11/06/23 by Rodolfo Sims MD amoxicillin-pot clavulanate 875-125 mg 1 tab PO BID 5 days apixaban (Eliquis) 5 mg PO BID benzonatate 100 mg PO TID PRN diltiazem HCl 240 mg PO DAILY flecainide 100 mg PO Q12H 90 days guaifenesin ER (Mucinex) 1,200 mg PO BID lorazepam 0.5 mg PO BID metoprolol tartrate 25 mg PO BID zolpidem 10 mg PO BEDTIME PRN HPI HPI Comments History of Present Illness Details Donald returns for follow-up regarding paroxysmal atrial fibrillation. He is maintained on a combination of flecainide, diltiazem as well as metoprolol. He is also on anticoagulation with Eliquis. To recall, he came for shoulder surgery in 2019. At that time he was found to be in atrial fibrillation. Then cardioverted and started on flecainide. He had another recurrence, but we increased flecainide dose and he converted to sinus. Overall, he is generally doing okay but still has chest pain off and on. Sounds very nonspecific and not clearly exertional. However, he seems to be bothered by it. [facility] Medical History Atrial fibrillation Essential hypertension History of depression Nocturnal hypoxemia Obesity (BMI 30-39.9) On anticoagulant therapy On beta adrian at home ELLEN (obstructive sleep apnea) PAF (paroxysmal atrial fibrillation) Surgical History Hx of rotator cuff surgery Hx of colonoscopy Hx of surgical procedure History of elbow surgery History of left knee surgery History of cardioversion Family History Mother No problems noted. Father No problems noted. Social History Household Members: None Are you a primary hemodialysis patient care specialist to a significant other at home: No Do you presently have visiting nurse or other home services: No Alcohol intake: never Patient Tobacco Use Status: Former Tobacco user Quit Date: Tobacco use type: Cigarette Years Smoked: 1 Advance Directives Date on File: 04/07/21 Current occupational status: retired 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 Review of Systems Const Denies weakness ENT Denies dizziness Card Reports chest pain, Denies chest pain with activity, Denies syncope, Denies rapid heart rate, Denies pedal edema, Denies edema, Denies leg edema, Denies lightheadedness, Denies palpitations, Reports dyspnea, Denies dyspnea on exertion and Denies orthopnea Resp Denies cough, Reports dyspnea and Denies dyspnea on exertion GI Denies hematochezia and Denies change in stool character Musc Denies abnormal gait, Denies muscle cramps, Denies muscle weakness, Denies numbness, Denies radiating pain into limb and Denies tingling Neuro Denies abnormal gait, Denies dizziness, Denies syncope, Denies numbness, Denies tingling and Denies weakness Endo Denies palpitations Physical Exam Vital Signs: Last Vital Signs Pulse 63 11/06/23 13:39 BP 140/90 H 11/06/23 13:39 BMI result Body Mass Index 34.4 Const General: comfortable and no acute distress Orientation/consciousness: patient oriented x3 HEENT Other: Unremarkable Head: Yes normal to inspection Neck Neck: Yes normal visual inspection Chest Chest palpation & inspection: normal inspection of the chest Resp Auscultation: clear to auscultation bilaterally Cardio Palpation: normal PMI Heart sounds: S1 normal heart sound present, S2 normal heart sound present, no gallops, no murmurs and no rubs GI Palpation (GI): Soft to palpation Back/Spine/Pelvis Other: unremarkable Skin General skin exam: no rashes or lesions noted Neuro General: patient oriented x3 Extrem General: Yes normal to inspection Psych Mental Status: mental status grossly normal Office Procedures EKG Details: EKG with sinus rhythm at 63/Min; no significant ST-T changes and otherwise unremarkable. [place] 204 millisecond; [place]. [id number], Complete Assessment & Plan Assessment & Plan (1) PAF (paroxysmal atrial fibrillation): Code(s): I48.0 - Paroxysmal atrial fibrillation Plan: Currently stable on combination of flecainide/metoprolol/diltiazem. No changes at this time. Continue anticoagulation. (2) Encounter for monitoring flecainide therapy: Code(s): Z51.81 - Encounter for therapeutic drug level monitoring; Z79.899 - Other half-way (current) drug therapy Plan: Stable. (3) ELLEN (obstructive sleep apnea): Comment: He has mild obstructive sleep apnea, He has opted for conservative measures. He is trying to lose weight successfully. At present denies any his symptoms of ELLEN. HIS CPAP DEVICE HAS BEEN TAKEN AWAY. [place] : Encouraged to continue losing weight, image it goal would be to bring his weight below 190 lb. Code(s): G47.33 - Obstructive sleep apnea (adult) (pediatric) Plan: Not on regular CPAP. Mainly treated by weight loss. Hopefully can keep the weight down. (4) Precordial chest pain: Code(s): R07.2 - Precordial pain Plan: In the past, coronary CTA was unremarkable. Due to recurrent complaints of chest pain, we will repeat the same. Orders: Orders CT Cardiac Coronary Angio Today I25.10 - Atherosclerotic heart disease of [place] coronary artery without angina pectoris Basic Metabolic Panel Today I48.0 - Paroxysmal atrial fibrillation Coding Level of Care Code Est Pt Level 4 (04708) Diagnoses PAF (paroxysmal atrial fibrillation) I48.0 Encounter for monitoring flecainide therapy Z51.81; Z79.899 ELLEN (obstructive sleep apnea) G47.33 Precordial chest pain R07.2 CPT Codes EKG - CPT: 36285-[id number], Complete ([id number])
== END 2023-11-06 13:58 | disposition home or self-care (01) ==
PROVIDERS: PCP Family Medicine; Visit Provider Internal Medicine
DX: I48.0 Paroxysmal atrial fibrillation (principal); Z51.81 Encounter for therapeutic drug level monitoring; Z79.899 Other long term (current) drug therapy; G47.33 Obstructive sleep apnea (adult) (pediatric); R07.2 Precordial pain
CPT/HCPCS: 93010; 99214

== ENCOUNTER → 2023-11-06 13:35 | Outpatient (BNVA) | payer OTHER, SELFPAY | PROVIDERS: PCP Family Medicine; Visit Provider Internal Medicine | DX: I48.0 Paroxysmal atrial fibrillation (principal); I25.10 Atherosclerotic heart disease of native coronary artery without angina pectoris; G47.33 Obstructive sleep apnea (adult) (pediatric); R07.2 Precordial pain; Z79.01 Long term (current) use of anticoagulants; Z79.899 Other long term (current) drug therapy | CPT/HCPCS: 93005; 99212 ==

== ENCOUNTER 2023-11-08 09:00 | Outpatient (AMB) | payer OTHER, SELFPAY ==
--- NOTE | 2023-11-08 09:05 | MHC.OFFVIS ---
Intake Intake Visit Reasons: OV - right knee OA, last inj 11/06/22 Intake Note: Donald is a 67 year old male who presents today for a follow up of his right knee OA, last injection 11/06/22. Patient reports his last injection gave him 6 months of relief. He states that he would like to discuss repeating the injections vs surgery. Allergies No Known Allergies [No Known Allergies*] Allergy (Verified 11/08/23 09:12) HPI OV - right knee OA, last inj 11/06/22 HPI Details 67-year-old male who presents in the office today for a follow up of right knee osteoarthritis. I last saw the patient in the office on 11/06/2022. At this time the patient was given a cortisone injection in the right knee. He states this gave him 6 months of relief. He presents in the office today wishing to discuss injections versus surgical intervention. Patient states he will be walking when he gets a pain in the knee and it began to give out. He states he is concerned he is going to have a bad fall. He states he has had a few times when the knee gave out and he went to the floor while he was at home. He states he is able to walk around the grocery store without stopping, but states he has increased pain after. He states he might occasionally stop for a little bit to wait for it to past. He states he will rest and apply compression to help with some relief. [facility] Medical History Atrial fibrillation Essential hypertension History of depression Nocturnal hypoxemia Obesity (BMI 30-39.9) On anticoagulant therapy On beta adrian at home ELLEN (obstructive sleep apnea) PAF (paroxysmal atrial fibrillation) Surgical History Hx of rotator cuff surgery Hx of colonoscopy Hx of surgical procedure History of elbow surgery History of left knee surgery History of cardioversion Family History Mother No problems noted. Father No problems noted. 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 No ecchymosis, erythema, or joint effusion. No tenderness to palpation to the medial or lateral joint lines. Full knee extension and flexion. Crepitus felt with ROM. Negative Cielo's. NVI. Office Procedures Joint Injection/Drain Joint Injection/Drain Primary Site: right knee Prep: site was prepped using aseptic technique, ethochloride spray was applied and injection warnings given Injected: 80 mg of, DepoMedrol, with 8 mL of (2% plain lido ) and in the joint Approach Used: anteromedial Procedure: The patient tolerated the procedure well, but had some pain with the injection and there was some relief with the local anesthesia Coding 16030 - Large joint Procedure code (CPT) selection complete Assessment & Plan Assessment & Plan (1) Osteoarthritis of right knee: Code(s): M17.11 - Unilateral primary osteoarthritis, right knee Qualifiers: Osteoarthritis type: unspecified Qualified Code(s): M17.11 - Unilateral primary osteoarthritis, right knee Plan Mr. Ornelas is a 67-year-old male who presents in the office today for a follow up of right knee osteoarthritis. I last saw the patient in the office on 11/06/2022. At this time the patient was given a cortisone injection in the right knee. He states this gave him 6 months of relief. He presents in the office today wishing to discuss injections versus surgical intervention. Patient states he will be walking when he gets a pain in the knee and it began to give out. He states he is concerned he is going to have a bad fall. He states he has had a few times when the knee gave out and he went to the floor while he was at home. He states he is able to walk around the grocery store without stopping, but states he has increased pain after. He states he might occasionally stop for a little bit to wait for it to past. He states he will rest and apply compression to help with some relief. The patient was offered a cortisone injection in the right knee with 80 mg of DepoMedrol. The patient was explained the risk, benefits, and alternatives to receiving this injection. After receiving consent for the injection, the patient had the procedure done while in office today. The patient tolerated the procedure well with no complications. Discussed conservative versus surgical intervention. We discussed doing the injection today to help get the patient some relief until he able to move forward with surgical intervention. Follow up will be for his preoperative appointment, or sooner if needed. Patient Instructions: Scribed by Mireya Villegas medical interpreter, for Delaney Vega PA-C on 11/08/2023 at 9:16 am, EST. Coding Level of Care Code Est Pt Level 4 (34689) Diagnoses Osteoarthritis of right knee, unspecified osteoarthritis type M17.11 Osteoarthritis type: unspecified CPT Codes Coding - 16391 Large joint: 52885 - Large joint ([id number])
== END 2023-11-08 09:52 | disposition home or self-care (01) ==
PROVIDERS: PCP Family Medicine; Visit Provider Physician Assistant
DX: M17.11 Unilateral primary osteoarthritis, right knee (principal)
CPT/HCPCS: 20610; 99213

== ENCOUNTER → 2023-11-08 09:00 | Outpatient (BNVA) | payer OTHER, SELFPAY | PROVIDERS: PCP Family Medicine; Visit Provider Physician Assistant | DX: M17.11 Unilateral primary osteoarthritis, right knee (principal) | CPT/HCPCS: 20610; 99212; J1040 ==

== ENCOUNTER → 2023-11-14 08:05 | Outpatient (BNVA) | payer OTHER, SELFPAY | PROVIDERS: PCP Family Medicine; Visit Provider Physician Assistant ==

== ENCOUNTER 2024-02-06 09:58 | Outpatient (REF) | payer OTHER, SELFPAY ==
[2024-02-06 10:42] LABS: Anion Gap 10 (12-20); Blood Urea Nitrogen 10 mg/dL (9-16); Calcium 9.6 mg/dL (8.4-10.2); Carbon Dioxide 29 mmol/L (22-29); Chloride 106 mmol/L (96-108); Cholesterol 184 mg/dL (<200); Estimated Glomerular Filt Rate > 60; Glucose Random 94 mg/dL (60-115); HDL Cholesterol 49 mg/dL (>40); LDL Cholesterol Calculated 125 mg/dL (<100); Potassium 4.3 mmol/L (3.3-5.1); Sodium 141 mmol/L (135-145); Triglycerides 50 mg/dL (<150)
== END 2024-02-06 09:59 | disposition home or self-care (01) ==
LOC: HO.LAB 09:58
PROVIDERS: PCP Family Medicine; Visit Provider Internal Medicine
DX: I48.0 Paroxysmal atrial fibrillation (principal); I25.10 Atherosclerotic heart disease of native coronary artery without angina pectoris
CPT/HCPCS: 36415; 80048; 80061

== ENCOUNTER 2024-02-07 08:44 | Outpatient (AMB) | payer OTHER, SELFPAY ==
[2024-02-07 08:47] VITALS: BP 130/72; PULSE 51; BMI 34.9
--- NOTE | 2024-02-07 08:47 | MHC.OFFVIS ---
Vital Signs 02/07/24 08:47 Height 5 ft 6 in Weight 216 lb 0.848 oz BMI 34.9 BP 130/72 Blood Pressure Location Lt brachial Position Sitting Pulse 51 Pulse Source Monitor Intake Visit Reasons: CAD on CTA follow up Allergies No Known Allergies [No Known Allergies*] Allergy (Verified 11/14/23 08:12) Medication List - Last Reconciled 02/07/24 by Rodolfo Sims MD apixaban (Eliquis) 5 mg PO BID diltiazem HCl CD 240 mg PO DAILY flecainide 100 mg PO Q12H 90 days lorazepam 0.5 mg PO BID metoprolol tartrate 25 mg PO BID zolpidem 10 mg PO BEDTIME PRN HPI Comments Details: Donald returns for follow-up regarding paroxysmal atrial fibrillation. He is maintained on a combination of flecainide, diltiazem as well as metoprolol. He is also on anticoagulation with Eliquis. To recall, he came for shoulder surgery in 2019. At that time he was found to be in atrial fibrillation. Then cardioverted and started on flecainide. He had another recurrence, but we increased flecainide dose and he converted to sinus. He was having some atypical sounding chest pains but not clearly exertional. Hence underwent coronary CTA. Otherwise, doing okay. Needs to go for knee surgery. [facility] Medical History (Updated 02/07/24 @ 08:59 by Rodolfo Sims MD) Atherosclerotic cardiovascular disease CAD (coronary artery disease) Nocturnal hypoxemia History of depression On anticoagulant therapy On beta adrian at home ELLEN (obstructive sleep apnea) Obesity (BMI 30-39.9) Essential hypertension PAF (paroxysmal atrial fibrillation) Atrial fibrillation Surgical History Hx of rotator cuff surgery Hx of colonoscopy Hx of surgical procedure History of elbow surgery History of left knee surgery History of cardioversion Family History Mother No problems noted. Father No problems noted. Social History Household Members: None Are you a primary career counselor to a significant other at home: No Do you presently have visiting nurse or other home services: No Alcohol intake: never Patient Tobacco Use Status: Former Tobacco user Tobacco use type: Cigarette Years Smoked: 1 Advance Directives Date on File: 04/07/21 Current occupational status: retired 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 Review of Systems Const Denies weakness ENT Denies dizziness Card Denies chest pain, Denies chest pain with activity, Denies syncope, Denies rapid heart rate, Denies pedal edema, Denies edema, Denies leg edema, Denies lightheadedness, Denies palpitations, Denies dyspnea, Denies dyspnea on exertion and Denies orthopnea Resp Denies cough, Denies dyspnea and Denies dyspnea on exertion GI Denies hematochezia and Denies change in stool character Musc Denies abnormal gait, Denies muscle cramps, Denies muscle weakness, Denies numbness, Denies radiating pain into limb and Denies tingling Neuro Denies abnormal gait, Denies dizziness, Denies syncope, Denies numbness, Denies tingling and Denies weakness Endo Denies palpitations Physical Exam Vital Signs: Last Vital Signs Pulse 51 02/07/24 08:47 BP 130/72 02/07/24 08:47 BMI result Body Mass Index 34.9 Const General: comfortable and no acute distress Orientation/consciousness: patient oriented x3 HEENT Other: Unremarkable Head: Yes normal to inspection Neck Neck: Yes normal visual inspection Chest Chest palpation & inspection: normal inspection of the chest Resp Auscultation: clear to auscultation bilaterally Cardio Palpation: normal PMI Heart sounds: S1 normal heart sound present, S2 normal heart sound present, no gallops, no murmurs and no rubs GI Palpation (GI): Soft to palpation Back/Spine/Pelvis Other: unremarkable Skin General skin exam: no rashes or lesions noted Neuro General: patient oriented x3 Extrem General: Yes normal to inspection Psych Mental Status: mental status grossly normal Office Procedures EKG Details: EKG with sinus bradycardia at 51/Min; no significant ST-T changes and otherwise unremarkable[place] [id number], Complete Assessment & Plan Assessment & Plan (1) PAF (paroxysmal atrial fibrillation): Code(s): I48.0 - Paroxysmal atrial fibrillation Category: Medical Plan: Currently stable on combination of flecainide/metoprolol/diltiazem. Remains on anticoagulation. If any further recurrences, then ablation. (2) Encounter for monitoring flecainide therapy: Code(s): Z51.81 - Encounter for therapeutic drug level monitoring; Z79.899 - Other intermediate (current) drug therapy Category: Medical Plan: Stable. (3) Atherosclerotic cardiovascular disease: Code(s): I25.10 - Atherosclerotic heart disease of [place] coronary artery without angina pectoris Category: Medical Plan: Coronary CTA-mild stenosis proximal LAD. Minimal stenosis in the proximal circumflex. Discussed. Not significant at this time. Take statins. (4) ELLEN (obstructive sleep apnea): Comment: He has mild obstructive sleep apnea, He has opted for conservative measures. He is trying to lose weight successfully. At present denies any his symptoms of ELLEN. HIS CPAP DEVICE HAS BEEN TAKEN AWAY. [place] : Encouraged to continue losing weight, image it goal would be to bring his weight below 190 lb. Code(s): G47.33 - Obstructive sleep apnea (adult) (pediatric) Category: Medical Plan: Not on regular CPAP. Mainly treated by weight loss. Hopefully can keep the weight down. (5) Preoperative cardiovascular examination: Code(s): Z01.810 - Encounter for preprocedural cardiovascular examination Category: Medical Plan: Intermediate cardiac risk for knee surgery. May proceed. May hold the last 4 doses of Eliquis prior to surgery. Orders: Orders Lipid Panel 6 Months E78.5 - Hyperlipidemia, unspecified, I25.10 - Atherosclerotic heart disease of [place] coronary artery without angina pectoris Liver Panel 6 Months I25.10 - Atherosclerotic heart disease of [place] coronary artery without angina pectoris Medications: New atorvastatin (Lipitor) 40 mg PO QPM 90 tabs 3RF Coding Level of Care Code Est Pt Level 4 (71328) Diagnoses PAF (paroxysmal atrial fibrillation) I48.0 Encounter for monitoring flecainide therapy Z51.81; Z79.899 Atherosclerotic cardiovascular disease I25.10 ELLEN (obstructive sleep apnea) G47.33 Preoperative cardiovascular examination Z01.810 CPT Codes EKG - CPT: 16132-[id number], Complete ([id number])
== END 2024-02-07 09:07 | disposition home or self-care (01) ==
LOC: HO.HCS 08:44
PROVIDERS: PCP Family Medicine; Visit Provider Internal Medicine
DX: I48.0 Paroxysmal atrial fibrillation (principal); Z51.81 Encounter for therapeutic drug level monitoring; Z79.899 Other long term (current) drug therapy; I25.10 Atherosclerotic heart disease of native coronary artery without angina pectoris; G47.33 Obstructive sleep apnea (adult) (pediatric); Z01.810 Encounter for preprocedural cardiovascular examination
CPT/HCPCS: 93010; 99214

== ENCOUNTER → 2024-02-07 08:44 | Outpatient (BNVA) | payer OTHER, SELFPAY | PROVIDERS: PCP Family Medicine; Visit Provider Internal Medicine | DX: Z01.810 Encounter for preprocedural cardiovascular examination (principal); I48.0 Paroxysmal atrial fibrillation; I25.10 Atherosclerotic heart disease of native coronary artery without angina pectoris; G47.33 Obstructive sleep apnea (adult) (pediatric); Z51.81 Encounter for therapeutic drug level monitoring; Z79.899 Other long term (current) drug therapy | CPT/HCPCS: 93005; 99212 ==

== ENCOUNTER 2024-03-12 10:03 | Outpatient (AMB) | payer OTHER, SELFPAY ==
--- NOTE | 2024-03-12 10:12 | MHC.OFFVIS ---
Vital Signs 03/12/24 10:13 Height 5 ft 6 in Weight 222 lb 10.67 oz BMI 35.9 BP 104/74 Blood Pressure Location Lt brachial Position Sitting Pulse 58 Pulse Source Pulse Oximeter Pulse Oximetry (%) 96 Oxygen Delivery Method Room Air Intake Visit Reasons: Obstructive sleep apnea Intake Note: pt is here for pre-op clearance,he is having a total knee replacement, he states he is okay, when he pushes he does get short of breath, he slows down and gets okay. He states he feels he sleep okay at night Fuel Agent Required: No Allergies No Known Allergies [No Known Allergies*] Allergy (Verified 03/12/24 10:33) Medication List - Last Reconciled 03/12/24 by Kathleen Moreau MD apixaban (Eliquis) 5 mg PO BID atorvastatin (Lipitor) 40 mg PO QPM diltiazem HCl CD 240 mg PO DAILY flecainide 100 mg PO Q12H 90 days lorazepam 0.5 mg PO BID metoprolol tartrate 25 mg PO BID zolpidem 10 mg PO BEDTIME PRN Do you need a note to return to daycare/school/sports/work: No HPI HPI Obstructive sleep apnea: Details: 68 YEARS OLD GENTLEMAN WHO IS NOW RETIRED, COMES BACK FOR FOLLOW-UP FOR HIS SLEEP APNEA. HE WAS DIAGNOSED TO HAVE OBSTRUCTIVE SLEEP APNEA IN JANUARY 2021 AT THAT TIME HE IS SLEEP APNEA WAS QUITE SEVERE WITH NOCTURNAL HYPOXEMIA. HE OPTED NOT TO BE TREATED WITH CPAP TRY TO LOSE WEIGHT UNSUCCESSFULLY. HAD POLYSOMNOGRAM STUDY IN THE SLEEP LAB ON 04/1922, WHICH SHOWED SLEEP APNEA BUT MILD WITH TOTAL SLEEP TIME AHI 9.2, HE ALSO DID HAVE MILD NOCTURNAL HYPOXEMIA. WE ORDERED CPAP AND ALSO HOME OXYGEN THERAPY, BUT HE DID NOT WANT TO GO ON THIS TREATMENT, AND RETURNED HIS CPAP. IN HIS FOLLOW-UP DISCUSSIONS HE HAD TOLD ME THAT HE WOULD RATHER DO THE CONSERVATIVE MEASURES OF TREATMENT INCLUDING WEIGHT REDUCTION AND POSITION THERAPY. HE WAS SEEN BACK ON 10/04/22 AND HAD LOST ABOUT 16 LB OF WEIGHT, DENIED ANY SYMPTOMS OF SLEEP APNEA. HE HAD PULMONARY FUNCTION TEST ON 04/06/2023 WHICH WAS ESSENTIALLY NORMAL, THUS HE DOES NOT HAVE ANY INTRINSIC CHRONIC PULMONARY DISEASE. THIS GENTLEMAN IS THE UNDERGOING KNEE SURGERY IN THE NEAR FUTURE, AND HE NEEDS THE CLEARANCE FROM PULMONARY POINT OF VIEW. HE DENIES ANY DYSPNEA ON EXERTION, DENIES COUGH OR WHEEZING. HE TELLS ME THAT HE SLEEPS WELL AT NIGHT BUT HE WAKES UP TO GO TO THE BATHROOM A FEW TIMES THUS HIS SLEEP IS USUALLY 5-6 HOURS PER NIGHT. HE SUPPLEMENTS IT WITH NAP IN THE AFTERNOON. HE HAS BEEN RELATIVELY SEDENTARY AND HAS GAINED WEIGHT BACK TO HIS BASELINE. [facility] Medical History Atherosclerotic cardiovascular disease CAD (coronary artery disease) Nocturnal hypoxemia History of depression On anticoagulant therapy On beta adrian at home ELLEN (obstructive sleep apnea) Obesity (BMI 30-39.9) Essential hypertension PAF (paroxysmal atrial fibrillation) Atrial fibrillation Surgical History Hx of rotator cuff surgery Hx of colonoscopy Hx of surgical procedure History of elbow surgery History of left knee surgery History of cardioversion Family History Mother No problems noted. Father No problems noted. Social History Household Members: None Are you a primary clinical care leader to a significant other at home: No Do you presently have visiting nurse or other home services: No Alcohol intake: never Patient Tobacco Use Status: Former Tobacco user Tobacco use type: Cigarette Years Smoked: 1 Advance Directives Date on File: 04/07/21 Current occupational status: retired 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 Review of Systems Const All systems reviewed & are unremarkable except as noted in HPI and below Eyes Reports no additional complaints ENT Reports nasal congestion (Mild off and on) Card Denies chest pain, Denies irregular heart rhythm and Denies leg edema Resp Reports as per HPI Reports nocturia Musc Reports back pain (Mild off and on) Skin/Breast Reports system reviewed and no additional complaints, except as documented Neuro Reports no additional complaints Psych Reports no additional complaints Endo Reports no additional complaints Physical Exam Vital Signs: Last Vital Signs Pulse 58 03/12/24 10:13 BP 104/74 03/12/24 10:13 Pulse Ox 96 03/12/24 10:13 Oxygen Delivery Method Room Air 03/12/24 10:13 BMI result Body Mass Index 35.9 Const General: comfortable, no acute distress, alert and awake Orientation/consciousness: patient oriented x3 HEENT Head: Yes normal to inspection General nose exam: No nasal polyps present and No nasal discharge present Face and sinus: Yes sinuses nontender Mouth: oropharynx abnormals (Oropharynx moderately narrow, Mallampati scale 3) Teeth and gingiva: dentures Throat: Yes posterior oropharynx normal Eyes General: appearance normal, both eyes and all related structures Neck Neck: Yes normal visual inspection, Yes no lymphadenopathy, Yes trachea midline and Yes no JVD Thyroid: Thyroid normal Chest Chest palpation & inspection: normal inspection of the chest, normal palpation of entire chest wall and no tenderness Resp Other: Percussion note is resonant, breath sounds are distant with prolonged expiratory phase No wheezes rhonchi or crepitations are heard. Effort & Inspection: decreased respiratory effort Cardio Palpation: normal PMI Rate: regular rate Rhythm: regular rhythm Heart sounds: no gallops and no murmurs GI Palpation (GI): Soft to palpation, nontender, No hepatosplenomegaly present and no masses Auscultation: normal bowel sounds Back/Spine/Pelvis Thoracic/Lumbar Spine: thoracic and lumbar spine normal to inspection Skin General skin exam: no rashes or lesions noted Neuro General: patient oriented x3 and no focal motor deficits Cranial nerves: Yes CN's II-XII intact bilaterally Extrem General: Yes normal to inspection, Yes no clubbing, cyanosis or edema and Yes no calf tenderness Psych Speech and movement: Normal speech and movement present Assessment & Plan Assessment & Plan (1) Obesity (BMI 30-39.9): Comment: HE IS MODERATELY OBESE, HE HAS REGAINED WEIGHT . HE TELLS ME THAT HE IS NOT ABLE TO WALK MUCH BECAUSE OF HIS KNEE PAIN , AWAITING KNEE SURGERY THEN HE INTENDS TO START WALKING TO LOSE WEIGHT. Code(s): E66.9 - Obesity, unspecified Category: Medical Plan: I DISCUSSED WITH HIM IT GREAT LENGTH AND TRY TO IMPRESS ON HIM THAT, HE SHOULD FOLLOW A WEIGHT REDUCTION DIET, HE NEEDS TO ELIMINATE CARBOHYDRATES, . INCREASE VEGETABLES AND SALADS HE SHOULD CONSULTED DIETITIAN, OR AT LEAST WORK WITH HIS PRIMARY CARE PHYSICIAN.. (2) ELLEN (obstructive sleep apnea): Comment: He was diagnosed to have mild obstructive sleep apnea, He opted for conservative means of treatment. Initially he successfully lost weight , with improvement of his symptoms. Then he has gained weight, but still denies any significant symptoms of sleep apnea. At present denies any his symptoms of ELLEN. Code(s): G47.33 - Obstructive sleep apnea (adult) (pediatric) Category: Medical Plan: I discussed with him about CPAP therapy but he does not want to go on that. Again the best way of treatment is to lose weight, he intends to start weight reduction program after his knee surgery. Plan * FAR THE IMPENDING TOTAL KNEE REPLACEMENT SURGERY, I THINK HE HAS NO CONTRAINDICATION AT THIS TIME. POSTOPERATIVELY MAY SHOW SOME EVENTS OF SLEEP APNEA AND LOW O2 SAT, WHICH CAN BE TREATED WITH O2 SUPPLEMENTATION . Coding Level of Care Code Est Pt Level 3 (03954) Diagnoses Obesity (BMI 30-39.9) E66.9 ELLEN (obstructive sleep apnea) G47.33
[2024-03-12 10:13] VITALS: BP 104/74; PULSE 58; O2SAT 96; BMI 35.9
== END 2024-03-12 10:34 | disposition home or self-care (01) ==
PROVIDERS: PCP Family Medicine; Visit Provider Internal Medicine
DX: E66.9 Obesity, unspecified (principal); G47.33 Obstructive sleep apnea (adult) (pediatric)
CPT/HCPCS: 99213

== ENCOUNTER → 2024-03-12 10:03 | Outpatient (BNVA) | payer OTHER, SELFPAY | PROVIDERS: PCP Family Medicine; Visit Provider Internal Medicine | DX: G47.33 Obstructive sleep apnea (adult) (pediatric) (principal); E66.9 Obesity, unspecified; Z68.35 Body mass index [BMI] 35.0-35.9, adult | CPT/HCPCS: 99212 ==

== ENCOUNTER 2024-03-13 09:49 | Outpatient (AMB) | payer OTHER, SELFPAY ==
[2024-03-13 10:14] VITALS: BP 128/70; PULSE 51; BMI 35.6
--- NOTE | 2024-03-13 10:14 | A.OFFVIS_ITS ---
Vital Signs 03/13/24 10:14 Height 5 ft 6 in Weight 220 lb 7.396 oz BMI 35.6 BP 128/70 Blood Pressure Location Lt brachial Position Sitting Pulse 51 Intake Visit Reasons: f/u a CTA/ Pre-op R TKA 02/11 Chief Operator Synthesis Required: No Accompanied by: Self / Same As Patient Allergies No Known Allergies [No Known Allergies*] Allergy (Verified 03/12/24 10:33) Medication List - Last Reconciled 03/13/24 by Rodolfo Sims MD apixaban (Eliquis) 5 mg PO BID atorvastatin (Lipitor) 40 mg PO QPM diltiazem HCl CD 240 mg PO DAILY flecainide 100 mg PO Q12H 90 days lorazepam 0.5 mg PO BID metoprolol tartrate 25 mg PO BID zolpidem 10 mg PO BEDTIME PRN HPI Comments Details: Donald returns for follow-up regarding paroxysmal atrial fibrillation. He is maintained on a combination of flecainide, diltiazem as well as metoprolol. He is also on anticoagulation with Eliquis. To recall, he came for shoulder surgery in 2019. At that time he was found to be in atrial fibrillation. Then cardioverted and started on flecainide. He had another recurrence, but we increased flecainide dose and he converted to sinus. He was having some atypical sounding chest pains but not clearly exertional. Hence underwent coronary CTA. O He was supposed to go for knee surgery but it seems that that has not been completed yet. In the interim, no new concerns. [facility] Medical History Atherosclerotic cardiovascular disease CAD (coronary artery disease) Nocturnal hypoxemia History of depression On anticoagulant therapy On beta adrian at home ELLEN (obstructive sleep apnea) Obesity (BMI 30-39.9) Essential hypertension PAF (paroxysmal atrial fibrillation) Atrial fibrillation Surgical History Hx of rotator cuff surgery Hx of colonoscopy Hx of surgical procedure History of elbow surgery History of left knee surgery History of cardioversion Family History Mother No problems noted. Father No problems noted. Social History Household Members: None Are you a primary healthcare economics manager to a significant other at home: No Do you presently have visiting nurse or other home services: No Alcohol intake: never Patient Tobacco Use Status: Former Tobacco user Tobacco use type: Cigarette Years Smoked: 1 Advance Directives Date on File: 04/07/21 Current occupational status: retired 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 Review of Systems Const Denies chills, Denies fatigue, Denies fever(s), Denies weight gain and Denies weight loss ENT Denies dizziness Card Denies chest pain, Denies leg edema, Denies lightheadedness, Denies palpitations, Denies dyspnea on exertion, Denies orthopnea and Denies other Resp Denies cough and Denies dyspnea on exertion GI Denies hematochezia and Denies change in stool character Musc Denies abnormal gait, Denies muscle weakness, Denies numbness, Denies radiating pain into limb and Denies tingling Neuro Denies abnormal gait, Denies dizziness, Denies numbness and Denies tingling Endo Denies fatigue and Denies palpitations Physical Exam Vital Signs: Last Vital Signs Pulse 51 03/13/24 10:14 BP 128/70 03/13/24 10:14 BMI result Body Mass Index 35.6 Const General: comfortable and no acute distress Orientation/consciousness: patient oriented x3 HEENT Other: Unremarkable Head: Yes normal to inspection Neck Neck: Yes normal visual inspection Chest Chest palpation & inspection: normal inspection of the chest Resp Auscultation: clear to auscultation bilaterally Cardio Palpation: normal PMI Heart sounds: S1 normal heart sound present, S2 normal heart sound present, no gallops, no murmurs and no rubs GI Palpation (GI): Soft to palpation Back/Spine/Pelvis Other: unremarkable Skin General skin exam: no rashes or lesions noted Neuro General: patient oriented x3 Extrem General: Yes normal to inspection Psych Mental Status: mental status grossly normal Office Procedures EKG Details: EKG with sinus bradycardia at 51/Min; no significant ST-T changes and otherwise unremarkable. Borderline [place] prolongation to 208 milliseconds; [place]. [id number], Complete Assessment & Plan Assessment & Plan (1) PAF (paroxysmal atrial fibrillation): Code(s): I48.0 - Paroxysmal atrial fibrillation Category: Medical Plan: Currently stable on combination of flecainide/metoprolol/diltiazem. Remains on anticoagulation. If any further recurrences, then ablation. (2) Encounter for monitoring flecainide therapy: Code(s): Z51.81 - Encounter for therapeutic drug level monitoring; Z79.899 - Other computer terminal operator (current) drug therapy Category: Medical Plan: Stable. (3) Atherosclerotic cardiovascular disease: Code(s): I25.10 - Atherosclerotic heart disease of [place] coronary artery without angina pectoris Category: Medical Plan: Coronary CTA-mild stenosis proximal LAD. Minimal stenosis in the proximal circumflex. Findings discussed with patient. Continue taking statins. Check lipids and LFTs. (4) ELLEN (obstructive sleep apnea): Comment: He was diagnosed to have mild obstructive sleep apnea, He opted for conservative means of treatment. Initially he successfully lost weight , with improvement of his symptoms. Then he has gained weight, but still denies any significant symptoms of sleep apnea. At present denies any his symptoms of ELLEN. Code(s): G47.33 - Obstructive sleep apnea (adult) (pediatric) Category: Medical Plan: Not on regular CPAP. Mainly treated by weight loss. (5) Preoperative cardiovascular examination: Code(s): Z01.810 - Encounter for preprocedural cardiovascular examination Category: Medical Plan: Intermediate cardiac risk for knee surgery. May proceed. May hold the last 4 doses of Eliquis prior to surgery. Coding Level of Care Code Est Pt Level 4 (15735) Diagnoses PAF (paroxysmal atrial fibrillation) I48.0 Encounter for monitoring flecainide therapy Z51.81; Z79.899 Atherosclerotic cardiovascular disease I25.10 ELLEN (obstructive sleep apnea) G47.33 Preoperative cardiovascular examination Z01.810 CPT Codes EKG - CPT: 97024-[id number], Complete ([id number])
== END 2024-03-13 10:33 | disposition home or self-care (01) ==
PROVIDERS: PCP Family Medicine; Visit Provider Internal Medicine
DX: I48.0 Paroxysmal atrial fibrillation (principal); Z51.81 Encounter for therapeutic drug level monitoring; Z79.899 Other long term (current) drug therapy; I25.10 Atherosclerotic heart disease of native coronary artery without angina pectoris; G47.33 Obstructive sleep apnea (adult) (pediatric); Z01.810 Encounter for preprocedural cardiovascular examination
CPT/HCPCS: 93010; 99214

== ENCOUNTER → 2024-03-13 09:49 | Outpatient (BNVA) | payer OTHER, SELFPAY | PROVIDERS: PCP Family Medicine; Visit Provider Internal Medicine | DX: Z01.810 Encounter for preprocedural cardiovascular examination (principal); M17.11 Unilateral primary osteoarthritis, right knee; I48.0 Paroxysmal atrial fibrillation; I25.10 Atherosclerotic heart disease of native coronary artery without angina pectoris; I10 Essential (primary) hypertension; G47.33 Obstructive sleep apnea (adult) (pediatric); Z79.01 Long term (current) use of anticoagulants; Z98.890 Other specified postprocedural states; Z51.81 Encounter for therapeutic drug level monitoring | CPT/HCPCS: 93005; 99212 ==

== ENCOUNTER → 2024-03-14 08:42 | Outpatient (BNVA) | payer OTHER, SELFPAY | PROVIDERS: PCP Family Medicine | DX: Z01.818 Encounter for other preprocedural examination (principal) ==

== ENCOUNTER 2024-04-07 12:10 | Outpatient (REF) | payer OTHER, SELFPAY ==
--- NOTE | ~2024-04-07 | XR_ITS ---
EXAMINATION: XR KNEE, RIGHT XR KNEE, LEFT CLINICAL INFORMATION: Arthritis. COMPARISON: Bilateral knee radiographs dated 11/06/2022. TECHNIQUE: AP view of the right and left knee. Lateral and sunrise views of the right knee. FINDINGS: Right knee: Severe lateral patellofemoral compartment as well as [id number] medial compartment joint space narrowing. Tricompartmental marginal osteophytes. Findings are slightly progressed when compared to the prior examination. No acute fracture or dislocation. No concerning lytic or blastic osseous lesion. Tibial tortuosity enthesophyte. Trace joint effusion. Left knee: Bcah-cm-yfteoebm medial compartment joint space narrowing with small tricompartmental marginal osteophytes, unchanged. No acute fracture or dislocation. No concerning lytic or blastic osseous lesion. No abnormal soft tissue calcification. XR/XR knee RT 3V IMPRESSION: RIGHT KNEE: Tricompartmental osteoarthritis, most severe within the lateral patellofemoral compartment, slightly progressed when compared to the prior examination. Trace joint effusion. LEFT KNEE: Tricompartmental osteoarthritis, most prominent within the medial compartment, unchanged. Electronically signed by: Hoang Whitman MD 04/11/2024 10:49 AM EDT
--- NOTE | ~2024-04-07 | XR_ITS ---
EXAMINATION: XR KNEE, RIGHT XR KNEE, LEFT CLINICAL INFORMATION: Arthritis. COMPARISON: Bilateral knee radiographs dated 11/06/2022. TECHNIQUE: AP view of the right and left knee. Lateral and sunrise views of the right knee. FINDINGS: Right knee: Severe lateral patellofemoral compartment as well as jgad-cs-fkitwxza medial compartment joint space narrowing. Tricompartmental marginal osteophytes. Findings are slightly progressed when compared to the prior examination. No acute fracture or dislocation. No concerning lytic or blastic osseous lesion. Tibial tortuosity enthesophyte. Trace joint effusion. Left knee: Rama-fv-yrjdempd medial compartment joint space narrowing with small tricompartmental marginal osteophytes, unchanged. No acute fracture or dislocation. No concerning lytic or blastic osseous lesion. No abnormal soft tissue calcification. XR/XR knee LT 1V IMPRESSION: RIGHT KNEE: Tricompartmental osteoarthritis, most severe within the lateral patellofemoral compartment, slightly progressed when compared to the prior examination. Trace joint effusion. LEFT KNEE: Tricompartmental osteoarthritis, most prominent within the medial compartment, unchanged. Electronically signed by: Hoang Whitman MD 04/11/2024 10:49 AM EDT
== END 2024-04-07 12:11 | disposition home or self-care (01) ==
LOC: HO.XRAY 12:10
PROVIDERS: PCP Family Medicine; Visit Provider Orthopaedic Surgery
DX: M17.0 Bilateral primary osteoarthritis of knee (principal)
CPT/HCPCS: 73560; 73562

== ENCOUNTER → 2024-04-29 08:59 | Outpatient (BNVA) | payer OTHER, SELFPAY | PROVIDERS: PCP Family Medicine | DX: Z01.818 Encounter for other preprocedural examination (principal) ==

== ENCOUNTER 2024-05-29 11:57 | Outpatient (REF) | payer OTHER, SELFPAY ==
--- NOTE | ~2024-05-29 | XR_ITS ---
EXAMINATION: XR KNEE, LEFT CLINICAL INFORMATION: Preoperative evaluation. Osteoarthritis. COMPARISON: Left knee radiographs dated 04/07/2024. TECHNIQUE: AP standing view of the right and left knee. FINDINGS: Left Knee: Medial compartment joint space narrowing. Tricompartmental marginal osteophytes. No osseous erosion. No abnormal soft tissue calcification. XR/XR knee LT 1V IMPRESSION: Moderate medial as well as mild patellofemoral and lateral compartment osteoarthritis. Electronically signed by: Hoang Whitman MD 06/08/2024 09:30 AM EDT
--- NOTE | ~2024-05-29 | XR_ITS ---
EXAMINATION: XR KNEE, RIGHT CLINICAL INFORMATION: Preoperative evaluation. COMPARISON: Right knee radiographs dated 04/07/2024. TECHNIQUE: AP and lateral views of the right knee. FINDINGS: Tricompartmental joint space narrowing with marginal osteophytes, most severe within the lateral aspect of the patellofemoral compartment. No acute fracture or dislocation. Trace joint effusion. XR/XR knee RT 3V IMPRESSION: Tricompartmental osteoarthritis, most severe within the lateral aspect of the patellofemoral compartment. Trace joint effusion. Electronically signed by: Hoang Whitman MD 06/08/2024 09:30 AM EDT
== END 2024-05-29 11:58 | disposition home or self-care (01) ==
LOC: HO.HOSX 11:57
PROVIDERS: Visit Provider Physician Assistant
DX: I10 Essential (primary) hypertension (principal); M17.11 Unilateral primary osteoarthritis, right knee; M25.572 Pain in left ankle and joints of left foot
CPT/HCPCS: 73560; 73562; 99212

== ENCOUNTER 2024-05-29 12:53 | Outpatient (AMB) | payer OTHER, SELFPAY ==
--- NOTE | 2024-05-29 13:16 | A.OFFVIS_ITS ---
Intake Visit Reasons: Pre-Op: R TKA w/NE 06/03/24 Intake Note: Donald a 68 year old male who presents today for a preoperative visit of right TKA on 06/03/24 NE. Pain management agreement reviewed and signed. Allergies No Known Allergies [No Known Allergies*] Allergy (Verified 05/29/24 13:45) HPI Comments Details: Mr Ornelas presents to the office today for preop visit. He is scheduled for right total knee arthroplasty with Dr. Dominguez. He continues to have ongoing pain and difficulty with ambulation in the right knee, which is affecting his quality of life; therefore, he has elected to move forward with surgery. [facility] Medical History (Updated 05/23/24 @ 10:03 by Barbara Priest RN) Atherosclerotic cardiovascular disease CAD (coronary artery disease) Nocturnal hypoxemia History of depression On anticoagulant therapy On beta adrian at home ELLEN (obstructive sleep apnea) Obesity (BMI 30-39.9) Essential hypertension PAF (paroxysmal atrial fibrillation) Atrial fibrillation Surgical History Hx of rotator cuff surgery Hx of colonoscopy Hx of surgical procedure History of elbow surgery History of left knee surgery History of cardioversion Family History Mother No problems noted. Father No problems noted. Social History Household Members: None Are you a primary director of home care hospice to a significant other at home: No Do you presently have visiting nurse or other home services: No Alcohol intake: never Patient Tobacco Use Status: Former Tobacco user Tobacco use type: Cigarette Years Smoked: 1 Advance Directives Date on File: 04/07/21 Current occupational status: retired 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 Review of Systems Const All systems reviewed & are unremarkable except as noted in HPI and below Physical Exam Const General: cooperative and no acute distress Orientation/consciousness: patient oriented x3 HEENT Head: Yes normal to inspection, Yes normocephalic and Yes atraumatic Eyes General: appearance normal, both eyes and all related structures Neck Neck: Yes normal visual inspection and Yes no lymphadenopathy Resp Effort & Inspection: normal respiratory effort and able to speak in complete sentences Cardio Rate: regular rate Peripheral pulses: Peripheral pulses 2+ throughout GI Inspection: Yes normal to inspection Palpation (GI): Soft to palpation Skin General skin exam: no rashes or lesions noted Neuro General: patient oriented x3 Extrem Other: Right knee: Skin intact. No open wound or abrasion. ROM is 0-90 degrees. Calf supple, nontender. NVI. Psych Appearance: grossly normal Mental Status: mental status grossly normal Results Reviewed Results Reviewed: Xrays were obtained in the office today and personally reviewed by me of the right knee for pre op planning Assessment & Plan Assessment & Plan (1) Osteoarthritis of right knee: Code(s): M17.11 - Unilateral primary osteoarthritis, right knee Category: Medical Qualifiers: Osteoarthritis type: unspecified Qualified Code(s): M17.11 - Unilateral primary osteoarthritis, right knee Plan I discussed in detail the procedure and what to expect pre and post operatively. We discussed the risks, benefits and alternatives to the surgery as well as the rehabilitation course. The risks; which include, but are not limited to infection, bleeding, nerve injury, ongoing pain, swelling, and stiffness, perioperative risk of injury to bones and soft tissues, and blood clots. I?ve answered all questions and with their understanding they have consented to move forward with Right total knee arthroplasty with Dr. Alberto Shoemaker , last dose Sunday. Orders: Orders XR knee RT 3V 05/29/24 M17.11 - Unilateral primary osteoarthritis, right knee XR knee LT 1V 05/29/24 M25.562 - Pain in left knee Patient Instructions: Scribed for Joanna Gmaez PA-C, by Jose G Gleason medical file clerk, on 05/29/2024 at 12:45 PM EST.? I, Joanna Gamez PA-C, have personally reviewed and agree with the information entered by the scribe. Coding Level of Care Code Est Pt Level 3 (09779) Complex EM visit Add On G2211 Diagnoses Osteoarthritis of right knee, unspecified osteoarthritis type M17.11 Osteoarthritis type: unspecified
== END 2024-05-29 14:12 | disposition home or self-care (01) ==
PROVIDERS: PCP Family Medicine; Visit Provider Physician Assistant
DX: M17.11 Unilateral primary osteoarthritis, right knee (principal)
CPT/HCPCS: 99024

== ENCOUNTER 2024-06-03 06:29 | Day surgery (SDC) | payer OTHER, SELFPAY ==
[2024-05-23 10:11] VITALS: BP 144/74; PULSE 57; RESP 20; O2SAT 97; BMI 36.5
--- NOTE | 2024-05-23 10:27 | P.CONAN_ITS ---
Documented by User: Chleo Nielsen NP 05/30/24 13:23 HPI - Anesthesia Eval Consult details Narrative: 68yo M for Right Knee Replacement Total, 06/03/24 Medically optimized per PCP Follows [facility] [place] cardiology. Optimized for surgery per 03/2024 clearance note Pulmo optimized. Follows [facility] [place] Pulmo No recent illness No CP/SOB with minimal activity r/t knee pain. Rare CAMPBELL ELLEN: No CPAP, weight loss since initial diagnosis ASCD: Coronary CTA-mild stenosis proximal LAD. Minimal stenosis in the proximal circumflex. Afib: Eliquis. Stable per 03/2024 office visit [facility] Active Problems Active Problems: All Active Problems Family history of colon cancer in father (Acute) History of adenomatous polyp of colon (Acute) Precordial chest pain (Acute) COVID-19 (Acute) Tendinitis of left hip (Acute) Osteoarthritis of right knee (Acute) Preoperative cardiovascular examination (Acute) Contusion of right knee (Acute) Rotator cuff tear, left (Acute) Encounter for monitoring flecainide therapy (Acute) Atherosclerotic cardiovascular disease (Acute) CAD (coronary artery disease) (Acute) On anticoagulant therapy (Acute) Nocturnal hypoxemia (Acute) Atrial fibrillation (Acute) ELLEN (obstructive sleep apnea) (Acute) Obesity (BMI 30-39.9) (Acute) Essential hypertension (Acute) PAF (paroxysmal atrial fibrillation) (Acute) Past Medical History Medical History Atherosclerotic cardiovascular disease CAD (coronary artery disease) Nocturnal hypoxemia History of depression On anticoagulant therapy On beta adrian at home ELLEN (obstructive sleep apnea) Obesity (BMI 30-39.9) Essential hypertension PAF (paroxysmal atrial fibrillation) Atrial fibrillation Family History Family History Mother No problems noted. Father No problems noted. Family history of problems with anesthesia: No Surgical History Surgical History Hx of rotator cuff surgery Hx of colonoscopy Hx of surgical procedure History of elbow surgery History of left knee surgery History of cardioversion History of Problems with Anesthesia: No Social History Social History Household Members: None Are you a primary healthcare consultant to a significant other at home: No Do you presently have visiting nurse or other home services: No Alcohol intake: never Patient Tobacco Use Status: Former Tobacco user Tobacco use type: Cigarette Years Smoked: 1 Use of substances other than those prescribed or required for medical reasons: No Have you been hit, kicked, punched, or otherwise hurt by someone within the past year? 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 Meds Allergies Allergy/AdvReac Type Severity Reaction Status Date / Time No Known Allergies Allergy Verified 06/03/24 06:22 [No Known Allergies*] Home Medications ?Medication ?Instructions ?Recorded ?Confirmed ?Last Taken ?Type zolpidem 10 mg tablet 10 mg PO BEDTIME PRN Sleep 08/26/20 05/22/24 Unknown History lorazepam 0.5 mg tablet 1 mg PO BID 02/16/22 05/23/24 06/02/24 History atorvastatin 40 mg tablet (Lipitor) 40 mg PO BEDTIME 05/23/24 05/23/24 06/02/24 History diltiazem HCl 240 mg 240 mg PO QAM 05/23/24 05/23/24 06/03/24 05:00 History capsule,extended release 24 hr omega 1-dql-zpz-fish oil 900 1 cap PO QAM 05/23/24 05/23/24 05/30/24 History mg-1,400 mg capsule,delayed release Exam Height,Weight and Vital Signs: Height 5 ft 6 in Weight 102.512 kg Last Vital Signs Pulse 57 05/23/24 10:11 Resp 20 05/23/24 10:11 BP 144/74 H 05/23/24 10:11 Pulse Ox 97 05/23/24 10:11 O2 Del Method Room Air 05/23/24 10:11 Pertinent Lab Results Pertinent Lab Results: CMP 05/2024 from outside facility [facility] Laboratory Last Values WBC 3.2 X10*3/uL (4.8-10.8) L 05/23/24 11:06 RBC 4.91 X10*6/uL (4.60-5.80) 05/23/24 11:06 Hgb 14.8 g/dl (14.0-18.0) 05/23/24 11:06 Hct 42.8 % (42.0-52.0) 05/23/24 11:06 MCV 87.2 fL (80.0-98.0) 05/23/24 11:06 MCH 30.1 pg (27.0-33.0) 05/23/24 11:06 MCHC 34.6 g/dl (31.0-36.0) 05/23/24 11:06 RDW 12.8 % (11.0-16.0) 05/23/24 11:06 Plt Count 177 X10*3/uL (160-400) 05/23/24 11:06 MPV 9.6 fL (9.4-12.4) 05/23/24 11:06 Absolute Nucleated RBC 0.000 X10*3/uL (0.0-0.012) 05/23/24 11:06 Nucleated RBC % (auto) 0.0 /100WBC (0.0-0.2) 05/23/24 11:06 Nasal Screen MRSA (PCR) NEGATIVE (Negative) 05/23/24 10:20 Nasal S. aureus Screen NEGATIVE (Negative) 05/23/24 10:20 Nasal MRSA/S.aureus Interp SEE NOTE 05/23/24 10:20 Blood Type O Positive 05/23/24 10:57 Antibody Screen NEGATIVE 05/23/24 10:57 Narrative Narrative: EKG 05/2024 SB @ 58 Coronary CTA 01/2024 -mild stenosis proximal LAD. Minimal stenosis in the proximal circumflex. ECHO 2021 Conclusions: - 1. Normal LV systolic function with mild LVH with impaired relaxation filling pattern 2. Mildly dilated left atrium 3. Mild aortic regurgitation 4. Normal RV systolic pressure 5. No pericardial effusion Airway Mallampati Class: I TM Dist: >3cm Neck ROM: Full Denture: Upper and Lower Heart: RRR Lungs: CTAB Assessment and Plan Assessment Anesthesia Assessment: Anesthesia Plan Discussed and PAT Visit Final Anesthetic Review Family History of Problems with Anesthesia: No History of Problems with Anesthesia: No Documented by User: Dayna Clemons MD 06/03/24 08:20 PMF Past Medical History Medical History Atherosclerotic cardiovascular disease CAD (coronary artery disease) Nocturnal hypoxemia History of depression On anticoagulant therapy On beta adrian at home ELLEN (obstructive sleep apnea) Obesity (BMI 30-39.9) Essential hypertension PAF (paroxysmal atrial fibrillation) Atrial fibrillation Family History Family History Mother No problems noted. Father No problems noted. Surgical History Surgical History Hx of rotator cuff surgery Hx of colonoscopy Hx of surgical procedure History of elbow surgery History of left knee surgery History of cardioversion Social History Social History Household Members: None Are you a primary healthcare consultant to a significant other at home: No Do you presently have visiting nurse or other home services: No Alcohol intake: never Patient Tobacco Use Status: Former Tobacco user Tobacco use type: Cigarette Years Smoked: 1 Use of substances other than those prescribed or required for medical reasons: No Have you been hit, kicked, punched, or otherwise hurt by someone within the past year? 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 Meds Allergies Allergy/AdvReac Type Severity Reaction Status Date / Time No Known Allergies Allergy Verified 06/03/24 06:22 [No Known Allergies*] Home Medications ?Medication ?Instructions ?Recorded ?Confirmed ?Last Taken ?Type zolpidem 10 mg tablet 10 mg PO BEDTIME PRN Sleep 08/26/20 05/22/24 Unknown History lorazepam 0.5 mg tablet 1 mg PO BID 02/16/22 05/23/24 06/02/24 History atorvastatin 40 mg tablet (Lipitor) 40 mg PO BEDTIME 05/23/24 05/23/24 06/02/24 History diltiazem HCl 240 mg 240 mg PO QAM 05/23/24 05/23/24 06/03/24 05:00 History capsule,extended release 24 hr omega 0-npq-zcf-fish oil 900 1 cap PO QAM 05/23/24 05/23/24 05/30/24 History mg-1,400 mg capsule,delayed release Assessment and Plan Final Anesthetic Review ASA Class: III Final Preanesthetic Review: No Changes in Pt Med Stat, Meds/Allgs Chart Reviewed, Consent Obtained/Reviewed and Anes Risks/Benef Reviewed Patient Risk: Intermediate Procedure Risk: Intermediate Anesthetic Plan Anesthetic Plan: MAC:, Spinal and Regional Block Disposition: Standard PACU
[2024-05-23 11:15] LABS: Hematocrit 42.8 % (42.0-52.0); Hemoglobin 14.8 g/dl (14.0-18.0); Mean Corpuscular HGB Conc 34.6 g/dl (31.0-36.0); Mean Corpuscular Hemoglobin 30.1 pg (27.0-33.0); Mean Corpuscular Volume 87.2 fL (80.0-98.0); Mean Platelet Volume 9.6 fL (9.4-12.4); Platelet Count 177 X10*3/uL (160-400); Red Blood Count 4.91 X10*6/uL (4.60-5.80); Red Cell Distribution Width 12.8 % (11.0-16.0); White Blood Count 3.2 X10*3/uL (4.8-10.8)
[2024-05-23 12:06] LABS: MRSA Nasal PCR NEGATIVE (Negative); SA Nasal PCR NEGATIVE (Negative)
[2024-06-03] VITALS (15 sets, daily range): BP systolic 109–137; BP diastolic 58–71; PULSE 44–87; RESP 12–18; TEMP 36–36.6; O2SAT 94–99; BMI 36.5; BMI 39.3
--- NOTE | ~2024-06-03 | XR_ITS ---
EXAMINATION: XR KNEE, RIGHT CLINICAL INFORMATION: Right total knee replacement. COMPARISON: 05/29/2024 TECHNIQUE: 2 views of the right knee. FINDINGS: Right total knee replacement has been performed. Prosthetic components appear appropriately positioned. No fracture or evidence of loosening. Air and skin kenton identified in the immediate postoperative state. XR/XR knee RT 2V IMPRESSION: Status post right total knee replacement. Electronically signed by: Valentina Castillo MD 06/03/2024 11:59 AM EDT
--- NOTE | 2024-06-03 06:55 | ECG_ITS ---
Test Reason : ?aflutter Blood Pressure : / mmHG Vent. Rate : 049 BPM Atrial Rate : 000 BPM P-R Int : 000 ms QRS Dur : 088 ms QT Int : 416 ms P-R-T Axes : 000 -06 004 degrees QTc Int : 375 ms Atrial fibrillation with slow ventricular response Abnormal ECG When compared with ECG of 02-MAY-2023 09:40, Atrial fibrillation has replaced Sinus rhythm Referred By: Dayna Clemons Electronically Signed By:Samuel Donato
[2024-06-03] MEDS: Lactated Ringers 1,000 ML 100 ML IVCONT ×3 (06:59→23:06)
[2024-06-03 07:05] LABS: Hematocrit 45.4 % (42.0-52.0)
--- NOTE | 2024-06-03 07:21 | MHC.SHP ---
Pre-Procedural Eval Section A - 24 Hr Update-Section A only Date of Service: 06/03/24 The patient is an INPATIENT: No Changes since office visit: No Cold of Flu in the past 2 weeks, No New Medical Problems, No Changes in Medication and No Patient answered all questions The patient has been examined within 24 hours of the surgical procedure. The History & Physical has been completed within 30 days and I have reviewed it.: Yes Section B - Complete if H&P > 30 days Chief Complaint: Unilateral primary osteoarthritis, right knee Allergies: Allergies Allergy/AdvReac Type Severity Reaction Status Date / Time No Known Allergies Allergy Verified 06/03/24 06:22 [No Known Allergies*] Plan I have reviewed the history and physical and performed a pertinent physical examination on my patient. No changes have occurred unless specified. Time Spent With Patient Time: Total time managing care of this patient today ____ minutes.
--- NOTE | 2024-06-03 07:34 | PC.NURSE ---
anesthesia made aware around 645 that pt may be in aflutter. ekg ordered and stated afib. anes made aware and ok'd to continue with surgery since hr controlled in low 50's.
--- NOTE | 2024-06-03 09:29 | P.BOP_ITS ---
Brief Operative Note Date of Service: 06/03/24 Pre-op diagnosis: Right knee OA Post-op diagnosis: same Procedure: Right TKA Implants: [employer] Triathlon //12PS/32a cemented Surgeon: Ozzie Dominguez MD Anesthesia: regional and spinal Was an Ultimate Hoops Referee used for this Procedure?: Yes Ultimate Hoops Referee: Joanna Gamez Estimated blood loss (mL): 25 Tourniquet time (min): 60 IV fluids (mL): 1,000 Pathology: other Condition: stable Disposition: PACU
--- NOTE | 2024-06-03 09:35 | W.PM.OPN ---
Operative Note Operative Note Date of Service: 06/03/24 Narrative: Date of Service: 06/03/24 Pre-op diagnosis: Right knee OA Post-op diagnosis: same Procedure: Right TKA Implants: [place] Triathlon 5/6/12PS/32a cemented Surgeon: Ozzie Dominguez MD Anesthesia: regional and spinal Was an Well Drill Operator Helper Cable Tool used for this Procedure?: Yes Well Drill Operator Helper Cable Tool: Joanna Gamez Estimated blood loss (mL): 25 Tourniquet time (min): 60 IV fluids (mL): 1,000 Pathology: other Condition: stable Disposition: PACU Procedure in detail: The patient was brought to the operating room and prepped and draped in standard sterile fashion. A time-out was called to identify proper site proper procedure proper surgeon and IV antibiotics were administered. 1 g of IV tranexamic acid was administered. I began by making a midline incision to the retinaculum and performed a medial parapatellar arthrotomy. The patella was translated laterally and the knee was flexed up.There was eburnation of the lateral trochlea and the medial most aspect of the MFC. I performed a small medial peel and resected the infrapatellar fat pad. Aiken's line was then used to drill my intramedullary femoral guide and my distal femur cut of 12 mm (5 deg flexion contracture) was made in 5 degrees of valgus while protecting the soft tissues. I then measured a # 5 femur and placed my cutting guide and made my anterior posterior and chamfer cuts in 3 deg ER while protecting the soft tissues at all times. I then made my box but removing the PCL. Once I was satisfied with my cuts I turned my attention to the tibia. I removed the meniscus medially and laterally and , using an external cutting guide, in line with the tibial crest and the third ray, I made my distal tibial cut in 0 deg slope of while protecting the posterior soft tissues at all times. An extension block was used to confirm appropriate amount of bony resection. I then sized a #6 tibia and once I was satisfied that there was complete tibial coverage I placed my trial and with the trial femur in place took the knee through range of motion. I was satisfied with the extension and flexion as well as the balance at 0, 30 and 90 degrees. I then turned my attention to the patella where I removed 1 cm from the undersurface of the patella and then trialed a 32a patellar button. Again the knee was taken through range of motion I was satisfied with the tracking. I then prepared the tibia with a drill and punch. A femoral bone plug was placed and the knee was irrigated copiously. I then cemented the patella, tibia and femur in standard fashion. Axial compression adn a clamp were used while the cement dried. Once the cement was hard o nthe back table all excess cement was removed and I trialed different inserts until I selected a #12 insert. The final insert was placed and local TXA was administered. The knee was then closed with a running Quill suture, a 3 0 Vicryl and kenton on the skin. Patient was then placed in sterile dressing and brought to recovery room in stable condition there were no known complications.
--- NOTE | 2024-06-03 09:50 | PHA.MEDREC ---
Pharmacy Consult ? Medication Reconciliation Pharmacy has completed the medication reconciliation. Reviewed med rec done by nursing
[2024-06-03 12:21] LABS: Creatinine Clr Calc Pharmacy 96.6; Estimated Glomerular Filt Rate > 60
--- NOTE | 2024-06-03 12:25 | P.CONHOSP_ITS ---
History of Present Illness Data of Consult Service Date: 06/03/24 Requesting physician: Ozzie Dominguez Primary Care Provider: Leila Grayson MD HPI Reason for consult: medical consult s/p R TKR Patient is a 68-year-old male with a past medical history significant for CAD, AFib on Eliquis, diltiazem, metoprolol and flecainide, ELLEN, hyperlipidemia and obesity, status post right total arthroplasty today. EKG this morning showed AFib with slow ventricular response. No medical concerns currently. Some numbness and tingling in the RLE and L foot from nerve block. No nausea, vomiting, SOB, chest pain, or headache. Has not yet urinated, passed gas, or had a BM. Review of Systems 2 Constitutional: Constitutional: Denies body ache(s), Denies chills, Denies fever(s) and Denies headache(s) Eyes: Eyes: Denies change in vision ENT: Denies headache(s) Cardiovascular: Cardiovascular: Denies chest pain, Denies rapid heart rate, Denies lightheadedness and Denies dyspnea Respiratory: Respiratory: Denies dyspnea Gastrointestinal: Gastrointestinal: Denies diarrhea, Denies nausea and Denies vomiting Genitourinary: Genitourinary: Reports as per HPI Musculoskeletal: Musculoskeletal: Reports as per HPI Integumentary/Breasts: Skin/Breast: Denies rash Neurologic: Denies headache(s) [facility] Medical History Atherosclerotic cardiovascular disease CAD (coronary artery disease) Nocturnal hypoxemia History of depression On anticoagulant therapy On beta adrian at home ELLEN (obstructive sleep apnea) Obesity (BMI 30-39.9) Essential hypertension PAF (paroxysmal atrial fibrillation) Atrial fibrillation Family History Mother No problems noted. Father No problems noted. Surgical History Hx of rotator cuff surgery Hx of colonoscopy Hx of surgical procedure History of elbow surgery History of left knee surgery History of cardioversion Social History Household Members: None Housing: House Are you a primary long term acute care registered nurse to a significant other at home: No Do you presently have visiting nurse or other home services: No Alcohol intake: never Patient Tobacco Use Status: Former Tobacco user Tobacco use type: Cigarette Years Smoked: 1 Smoked in Last 30 Days: No Use of substances other than those prescribed or required for medical reasons: No Have you been hit, kicked, punched, or otherwise hurt by someone within the past year? If so, by whom?: No Do you feel safe in your current relationship?: No Current Relationship Is there a partner from a previous relationship who is making you feel unsafe now?: No Are you made to feel afraid or neglected: No Spiritual Healthcare Practices: none [facility] Practices: Zoroastrianism Cultural Healthcare Practices: none Are you DNR?: No Advance Directives: Yes Advance Directives Information Provided: Yes Advance Directives on File: Yes Advance Directives Date on File: 04/07/21 Do you have a plan to hurt others: No Plan Recently lost weight without trying: No Eating poorly because of decreased appetite: No Nutrition Risks: No Nutritional Risk Poor oral hygiene: No Current occupational status: retired 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 [employer] Allergies Allergy/AdvReac Type Severity Reaction Status Date / Time No Known Allergies Allergy Verified 06/03/24 06:22 [No Known Allergies*] Active Medications: Current Medications Acetaminophen (Acetaminophen 325 Mg Tablet) 650 mg PO Q6H PRN PRN Reason: Pain, Mild (Pain Scale 1-3), fever or headache Celecoxib (Celecoxib 200 Mg Capsule) 200 mg PO BID [facility] Docusate Sodium (Docusate Sodium 100 Mg Capsule) 100 mg PO BID [facility] Enoxaparin Sodium (Enoxaparin Sodium 40 Mg/0.4 Ml Syringe) 40 mg SUBCUT Q24H [facility] Hydromorphone HCl (Hydromorphone Hcl 0.5 Mg/0.5 Ml Syringe) 0.25 mg IVPUSH Q4H PRN; Protocol PRN Reason: Pain, Severe (Pain Scale 7-10) Lactated Ringer's (Lr) 1,000 mls @ 100 mls/hr IVCONT .Q10H MELECIO Stop: 06/04/24 09:40 Last Admin: 06/03/24 11:30 Dose: 100 mls/hr Cefazolin Sodium/Dextrose (Ancef) 2 gm in 50 mls @ 100 mls/hr IV POSTOP ONE Stop: 06/03/24 14:29 Lorazepam (Lorazepam 1 Mg Tablet) 1 mg PO BID [facility] Metoprolol Tartrate (Metoprolol Tartrate 25 Mg Tablet) 25 mg PO BID [facility]; Protocol Ondansetron HCl (Ondansetron Hcl 4 Mg/2 Ml Vial) 4 mg IVPUSH Q8H PRN PRN Reason: Nausea and Vomiting Oxycodone HCl (Oxycodone Hcl Immed Release 5 Mg Tablet) 5 mg PO Q4H PRN PRN Reason: Pain, Moderate(Pain Scale 4-6) Oxycodone HCl (Oxycodone Hcl Er 10 Mg Tab.Er.12h) 10 mg PO BID [facility] Sodium Chloride (0.9 % Sodium Chloride Flush 3 Ml Syringe) 3 ml IVFLUSH QSHIFT MELECIO Zolpidem Tartrate (Zolpidem Tartrate 5 Mg Tablet) 10 mg PO BEDTIME PRN PRN Reason: Sleep Home Medications ?Medication ?Instructions ?Recorded ?Confirmed ?Last Taken ?Type zolpidem 10 mg tablet 10 mg PO BEDTIME PRN Sleep 08/26/20 05/22/24 Unknown History lorazepam 0.5 mg tablet 1 mg PO BID 02/16/22 06/03/24 06/02/24 History atorvastatin 40 mg tablet (Lipitor) 40 mg PO BEDTIME 05/23/24 05/23/24 06/02/24 History diltiazem HCl 240 mg 240 mg PO DAILY 05/23/24 06/03/24 06/03/24 05:00 History capsule,extended release 24 hr omega 6-vfa-qho-fish oil 900 1 cap PO QAM 05/23/24 05/23/24 05/30/24 History mg-1,400 mg capsule,delayed release flecainide 100 mg tablet 100 mg PO BID 06/03/24 06/03/24 06/03/24 05:00 History Physical Exam 2 Vital Signs and Narrative: Vital Signs: Last Vital Signs Temp 96.8 F 06/03/24 11:16 Pulse 79 06/03/24 11:16 Resp 12 06/03/24 11:16 BP 109/60 06/03/24 11:16 Pulse Ox 95 06/03/24 11:16 O2 Del Method Room Air 06/03/24 11:16 BMI result Body Mass Index 36.5 General: AOx3, no acute distress Resp: CTA bilaterally CVS: S1, S2, regular rate, rhythm irregular GI: +BS, NT, no distention Skin: Warm, dry Extremities: No edema Psych: Appropriate affect Results Labs 06/03/24 06:58 06/03/24 11:54 Labs: Laboratory Results - last 24 hr 06/03/24 11:54 Estim Creat Clear Calc 96.6 Estimated GFR > 60 Imaging Radiologist's Impressions: Impressions Knee X-Ray 06/03/24 10:28 IMPRESSION: Status post right total knee replacement. Electronically signed by: Valentina Castillo MD 06/03/2024 11:59 AM EDT RP Assessment and Plan (1) Status post total right knee replacement: Status: Acute (2) Atrial fibrillation: Status: Acute Plan Patient is a 68-year-old male with a past medical history significant for CAD, AFib on Eliquis, diltiazem, metoprolol and flecainide, ELLEN, hyperlipidemia and obesity, status post right total knee arthroplasty today. EKG this morning showed AFib with slow ventricular response. R TKA - plan per ortho a fib with slow ventricular response - lovenox, transition to eliquis when clinically appropriate - continue fleccanide, metoprolol and diltiazem - cardiology consult - med tele for continuous cardiac monitoring CAD/HLD - continue atorvastatin ELLEN - no CPAP Thank you for allowing me to participate in the pt's care. Signing off for now. Please contact the medical team if any questions or concerns.
[2024-06-03] MEDS: HYDROmorphone HCl 0.5 MG/0.5 ML SYRINGE 0.25 MG IVPUSH (12:35)
--- NOTE | 2024-06-03 13:31 | PM.DS ---
DS: Providers Provider Date of Service: 06/04/24 Primary care physician: Leila Grayson MD Consults: 06/03/24 11:13 Consult to Hospitalist Routine Comment: Consulting Provider: Hospitalist Reason For Exam: eliqus due to afib 06/03/24 12:53 Consult to Cardiology Routine Consulting Provider: [facility] [place] [facility] Reason for consultation: a fib, R TKA this morning Has provider been notified: No DS: Diagnosis Discharge Diagnosis (1) Status post total right knee replacement: Status: Acute (2) Atrial fibrillation: Status: Acute DS: Summary Hospital Course Hospital Course: The patient underwent a successful right total knee arthroplasty, they were transferred to PACU and then to the floor to recover. During their stay, their vitals were stable, afebrile at 97.5. Labs were unremarkable, H/H 13.5/40.0. POD 1 they began Lovenox and at 48 hours post op they may resume Eliquis for DVT ppx, they also received Physical Therapy services twice a day. Prior to discharge, their dressing was clean dry and intact, and the plan was to be discharged home with VNA services. Time Attestation Discharge Coordination Time (in mins): 30 Quality: Safe Use of Opioids Does Pt have an Active Cancer Diagnosis on the Problem List?: No Quality: Stroke Does the patient have a stroke diagnosis?: No Physical Exam Vital Signs: Vital Signs: Last Vital Signs Temp 96.8 F 06/03/24 11:16 Pulse 79 06/03/24 11:16 Resp 12 06/03/24 11:16 BP 109/60 06/03/24 11:16 Pulse Ox 95 06/03/24 11:16 O2 Del Method Room Air 06/03/24 11:16 BMI result Body Mass Index 39.3 Const: General: cooperative, healthy appearing and no acute distress Resp: Effort & Inspection: normal respiratory effort and able to speak in complete sentences Cardio: Rate: regular rate Peripheral pulses: Peripheral pulses 2+ throughout GI: Palpation (GI): Soft to palpation Skin: Lesions: no lesions Rashes: no rashes Extrem: Other: rt knee dressing is c/d/i. Able to dorsi/plantar flex. Calf is supple and nontender. Sensation intact. Pedal pulse intact. DS: Data Data Completed and Pending Pending studies at discharge: Pending at discharge 06/03/24 09:06 Surgical [PTH] Routine Labs on day of discharge: Laboratory Results - last 24 hr 06/03/24 06/03/24 06:58 11:54 Hgb 15.0 Hct 45.4 Creatinine 0.82 Estim Creat Clear Calc 96.6 Estimated GFR > 60 Discharge Plan Discharge Patient Disposition: Home, Self-Care Referrals: Joanna Gamez PA-C [Physician Drum Sander Offbearer] - 06/19/24 12:30 pm Discharge Medications: No Action metoprolol tartrate 25 mg tablet 25 mg PO BID Qty: 180 3RF Eliquis 5 mg tablet 5 mg PO BID Qty: 180 1RF (DME) walker Misc See Rx Instructions .MEDSUPPLY Qty: 1 0RF Rx Instructions: Folding Front wheeled walker [place] 3 Fish Oil 900-1,400 mg Capsule,Delayed Release(Dr/Ec) 1 cap PO QAM atorvastatin [Lipitor] 40 mg tablet 40 mg PO BEDTIME diltiazem HCl 240 mg capsule,extended release 24hr 240 mg PO DAILY flecainide 100 mg tablet 100 mg PO BID zolpidem 10 mg tablet 10 mg PO BEDTIME PRN (Reason: Sleep) lorazepam 0.5 mg tablet 1 mg PO BID Discharge Orders: Discharge Order (Routine); Ordered 06/04/24 Ordered By: Delaney Vega Diet: Advance to usual diet Activity on Discharge: Walk with crutches Activity Restrictions/Additional Instructions: Physical Therapy for ROM 0-120, quad strength, gait training. Use walker for ambulation Limit stair climbing, No shower, No tub bath, No driving Resume anticoagulant Keep Aquacel dressing clean, dry and intact. Follow up with orthopedics in 2 weeks Print Language: Welsh
--- NOTE | 2024-06-03 13:32 | W.MHC.F2F ---
Service Date Service Date: 06/03/24 Encounter Date of encounter: 06/04/24 Reasons for Services Signs and symptoms assessed: s/p RTKA Pt. is considered homebound due to recent surgery. Unable to drive, poor balance, poor gait mechanics. Reason for physical therapy: home safety and mobility, therapeutic exercises, restore joint function, gait/transfer training and ADL training Homebound: Leaving the home is medically contraindicated at this time without the asist of a device and/or another person due th the listed conditions above and below. Reason homebound: unsteady gait / fall risk, leg weakness, pain with ambulation, poor balance / fall risk and unable to drive Certification: Based on the above findings, I certify that this patient is confined to the home and needs intermittent chcf care, physical therapy and/or speech therapy, or continues to need occupational therapy. The patient is under my care, and I have initiated the establishment of the plan of care. The patient will be followed by a physician who will periodically review the plan of care. Time Spent With Patient Time: Total time managing care of this patient today ____ minutes.
[2024-06-03] MEDS: ceFAZolin Sodium/Dextrose,Iso 2 GM/50 ML PIGGYBACK IV (14:05)
[2024-06-03] MEDS: 0.9 % Sodium Chloride Flush 3 ML SYRINGE IVFLUSH (20:28)
[2024-06-03] MEDS: Celecoxib 200 MG CAPSULE PO (20:28)
[2024-06-03] MEDS: oxyCODONE HCl ER 10 MG TAB.ER.12H PO (20:29)
[2024-06-03] MEDS: Docusate Sodium 100 MG CAPSULE PO (20:29)
[2024-06-03] MEDS: Metoprolol Tartrate 25 MG TABLET PO (20:29)
[2024-06-03] MEDS: LORazepam 1 MG TABLET PO (20:29)
[2024-06-04 03:00] VITALS: BP 146/72; PULSE 69; RESP 18; TEMP 36.1; O2SAT 97
[2024-06-04 06:35] LABS: MANUAL DIFF FLAG NO
[2024-06-04 07:00] VITALS: BP 133/65; PULSE 70; RESP 16; TEMP 36.6; O2SAT 98
[2024-06-04 07:02] LABS: Basophils Percent Auto 0.1 % (0-2); Eosinophils Percent Auto 0.1 % (0-4); Hemoglobin 13.5 g/dl (14.0-18.0); Imm Gran Abs Auto 0.03 X10*3/uL (0.00-0.03); Imm Gran Pct Auto 0.4 % (0.0-0.4); Lymphocytes Absolute Auto 0.6 X10*3/uL (1.2-4.9); Lymphocytes Percent Auto 9.2 % (20-40); Mean Corpuscular HGB Conc 33.8 g/dl (31.0-36.0); Mean Corpuscular Volume 88.9 fL (80.0-98.0); Monocytes Absolute Auto 0.6 X10*3/uL (0.1-1.2); Monocytes Percent Auto 8.7 % (2-11); Neutrophils Absolute Auto 5.7 x10*3/uL (2.0-8.3); Neutrophils Percent Auto 81.5 % (45-73); Platelet Count 190 X10*3/uL (160-400); Red Cell Distribution Width 13.1 % (11.0-16.0)
[2024-06-04 07:05] LABS: Anion Gap 11 (12-20); Blood Urea Nitrogen 18 mg/dL (9-16); Calcium 9.4 mg/dL (8.4-10.2); Carbon Dioxide 26 mmol/L (22-29); Chloride 108 mmol/L (96-108); Creatinine Clr Calc Pharmacy 104.4; Estimated Glomerular Filt Rate > 60; Glucose Fasting 154 mg/dL (60-99); Potassium 4.5 mmol/L (3.3-5.1); Sodium 140 mmol/L (135-145)
--- NOTE | 2024-06-04 07:37 | PM.PNORT ---
Subjective Subjective Date of Service: 06/04/24 Interval history: POD1 s/p RTKA Patient is resting in bed comfortably No overnight events Pain is managed No additional complaints Physical Exam Vital Signs: Vital Signs: Last Vital Signs Temp 97.8 F 06/04/24 07:00 Pulse 70 06/04/24 07:00 Resp 16 06/04/24 07:00 BP 133/65 06/04/24 07:00 Pulse Ox 98 06/04/24 07:00 O2 Del Method Room Air 06/04/24 07:00 BMI result Body Mass Index 39.3 Const: General: cooperative, healthy appearing and no acute distress Resp: Effort & Inspection: normal respiratory effort and able to speak in complete sentences Cardio: Rate: regular rate Peripheral pulses: Peripheral pulses 2+ throughout GI: Palpation (GI): Soft to palpation Skin: Lesions: no lesions Rashes: no rashes Extrem: Other: right knee dressing is c/d/i. Able to dorsi/plantar flex. Calf is supple and nontender. Sensation intact. Pedal pulse intact. Procedures Date of Service Date of Service: 06/04/24 Progress Note: A&P Assessment and plan (1) Status post total right knee replacement: Status: Acute Assessment and Plan: Continue pain mgmnt Begin Lovenox for dvt ppx --> Resume Eliquis at normal dose 48 hours post op begin PT for RTKA Dispo planning- PT, pain mgmnt, PT recommending STR - Placement pending Time Spent With Patient Time: Total time managing care of this patient today ____ minutes. Quality Stroke Does the patient have a stroke diagnosis?: No VTE Prior VTE?: No VTE Risk Level:: Medical - moderate - high VTE Device Contraindication: N/A - Device Ordered VTE Drug Contraindication: N/A - Med Ordered
[2024-06-04] MEDS: Enoxaparin Sodium 40 MG/0.4 ML SYRINGE SUBCUT (07:46)
[2024-06-04] MEDS: oxyCODONE HCl ER 10 MG TAB.ER.12H PO (07:47)
[2024-06-04] MEDS: Celecoxib 200 MG CAPSULE PO (07:48)
[2024-06-04] MEDS: Docusate Sodium 100 MG CAPSULE PO (07:48)
[2024-06-04] MEDS: Metoprolol Tartrate 25 MG TABLET PO (07:48)
[2024-06-04] MEDS: Lactated Ringers 1,000 ML 100 ML IVCONT (07:48)
[2024-06-04] MEDS: LORazepam 1 MG TABLET PO (07:48)
[2024-06-04] MEDS: 0.9 % Sodium Chloride Flush 3 ML SYRINGE IVFLUSH (07:49)
--- NOTE | 2024-06-04 08:26 | HO.POSTANES ---
Post Anesthesia Evaluation Post Anesthesia Evaluation Date of Service: 06/04/24 Vital Signs: Vital Signs Temp Pulse Resp BP Pulse Ox O2 Del Method 06/04/24 07:00 97.8 F 70 16 133/65 98 Room Air 06/04/24 03:00 97.0 F 69 18 146/72 H 97 Room Air 06/03/24 23:19 97.9 F 77 18 127/63 97 Room Air 06/03/24 20:29 87 137/64 Anesthesia: Spinal Mental Status: Awake Pain Control: Satisfactory Nausea/Vomiting: None Hydration: Adequate Anesthesia-Related Issues: No Anes. Related Issues
[2024-06-04 08:34] VITALS: BP 133/65; PULSE 70; O2SAT 98
--- NOTE | 2024-06-04 09:52 | P.CONCA_ITS ---
History of Present Illness History of Present Illness Date of Service: 06/04/24 Requesting physician: Alex Laguna Chief complaint: TKR. PAF Narrative: 68 male with PAF here for TKR Post op he had episode of Afib. He has reverted to sinus rhythm at this stage. Asymptomatic. Mild CAD by CT coronary angiogram. [facility] Past Medical History Medical History Atherosclerotic cardiovascular disease CAD (coronary artery disease) Nocturnal hypoxemia History of depression On anticoagulant therapy On beta adrian at home ELLEN (obstructive sleep apnea) Obesity (BMI 30-39.9) Essential hypertension PAF (paroxysmal atrial fibrillation) Atrial fibrillation Family History Family History Mother No problems noted. Father No problems noted. Surgical History Surgical History Hx of rotator cuff surgery Hx of colonoscopy Hx of surgical procedure History of elbow surgery History of left knee surgery History of cardioversion Social History Social History Household Members: None Housing: House Are you a primary animal caregiver to a significant other at home: No Do you presently have visiting nurse or other home services: No Alcohol intake: never Patient Tobacco Use Status: Former Tobacco user Tobacco use type: Cigarette Years Smoked: 1 Advance Directives Date on File: 04/07/21 service: No Current occupational status: retired 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 Meds Allergies Allergy/AdvReac Type Severity Reaction Status Date / Time No Known Allergies Allergy Verified 06/03/24 06:22 [No Known Allergies*] Active Medications: Current Medications Acetaminophen (Acetaminophen 325 Mg Tablet) 650 mg PO Q6H PRN PRN Reason: Pain, Mild (Pain Scale 1-3), fever or headache Celecoxib (Celecoxib 200 Mg Capsule) 200 mg PO BID [facility] Last Admin: 06/04/24 07:48 Dose: 200 mg Docusate Sodium (Docusate Sodium 100 Mg Capsule) 100 mg PO BID [facility] Last Admin: 06/04/24 07:48 Dose: 100 mg Enoxaparin Sodium (Enoxaparin Sodium 40 Mg/0.4 Ml Syringe) 40 mg SUBCUT Q24H [facility] Last Admin: 06/04/24 07:46 Dose: 40 mg Hydromorphone HCl (Hydromorphone Hcl 0.5 Mg/0.5 Ml Syringe) 0.25 mg IVPUSH Q4H PRN; Protocol PRN Reason: Pain, Severe (Pain Scale 7-10) Last Admin: 06/03/24 12:35 Dose: 0.25 mg Lorazepam (Lorazepam 1 Mg Tablet) 1 mg PO BID [facility] Last Admin: 06/04/24 07:48 Dose: 1 mg Metoprolol Tartrate (Metoprolol Tartrate 25 Mg Tablet) 25 mg PO BID [facility]; Protocol Last Admin: 06/04/24 07:48 Dose: 25 mg Ondansetron HCl (Ondansetron Hcl 4 Mg/2 Ml Vial) 4 mg IVPUSH Q8H PRN PRN Reason: Nausea and Vomiting Oxycodone HCl (Oxycodone Hcl Immed Release 5 Mg Tablet) 5 mg PO Q4H PRN PRN Reason: Pain, Moderate(Pain Scale 4-6) Oxycodone HCl (Oxycodone Hcl Er 10 Mg Tab.Er.12h) 10 mg PO BID [facility] Last Admin: 06/04/24 07:47 Dose: 10 mg Sodium Chloride (0.9 % Sodium Chloride Flush 3 Ml Syringe) 3 ml IVFLUSH QSHIFT [facility] Last Admin: 06/04/24 07:49 Dose: 3 ml Zolpidem Tartrate (Zolpidem Tartrate 5 Mg Tablet) 10 mg PO BEDTIME PRN PRN Reason: Sleep Home Medications ?Medication ?Instructions ?Recorded ?Confirmed ?Last Taken ?Type zolpidem 10 mg tablet 10 mg PO BEDTIME PRN Sleep 08/26/20 05/22/24 Unknown History lorazepam 0.5 mg tablet 1 mg PO BID 02/16/22 06/03/24 06/02/24 History atorvastatin 40 mg tablet (Lipitor) 40 mg PO BEDTIME 05/23/24 05/23/24 06/02/24 History diltiazem HCl 240 mg 240 mg PO DAILY 05/23/24 06/03/24 06/03/24 05:00 History capsule,extended release 24 hr omega 4-uam-cky-fish oil 900 1 cap PO QAM 05/23/24 05/23/24 05/30/24 History mg-1,400 mg capsule,delayed release flecainide 100 mg tablet 100 mg PO BID 06/03/24 06/03/24 06/03/24 05:00 History Physical Exam 2 Vital Signs: Vital Signs: Last Vital Signs Temp 97.8 F 06/04/24 07:00 Pulse 70 06/04/24 08:34 Resp 16 06/04/24 07:00 BP 133/65 06/04/24 08:34 Pulse Ox 98 06/04/24 08:34 O2 Del Method Room Air 06/04/24 07:00 BMI result Body Mass Index 39.3 GENERAL APPEARANCE: in no acute distress, pleasant. NECK: no carotid bruit, no jugular venous distention. SKIN: no suspicious lesions, warm and dry. HEART: no murmurs, regular rate and rhythm. LUNGS: clear to auscultation bilaterally. ABDOMEN: soft, nontender. EXTREMITIES: no edema PERIPHERAL PULSES: equal. Objective Labs and Meds 06/04/24 05:53 06/04/24 05:53 Lab results: Laboratory Results - last 24 hr 06/03/24 06/04/24 11:54 05:53 WBC 7.0 RBC 4.50 L Hgb 13.5 L Hct 40.0 L MCV 88.9 MCH 30.0 MCHC 33.8 RDW 13.1 Plt Count 190 MPV 10.0 Immature Gran % (Auto) 0.4 Neut % (Auto) 81.5 H Lymph % (Auto) 9.2 L [place] % (Auto) 8.7 Eos % (Auto) 0.1 Baso % (Auto) 0.1 Lymph # (Auto) 0.6 L [place] # (Auto) 0.6 Eos # (Auto) 0.0 Baso # (Auto) 0.0 Abs Immat Gran (auto) 0.03 Absolute Neuts (auto) 5.7 Absolute Nucleated RBC 0.000 Nucleated RBC % (auto) 0.0 Sodium 140 Potassium 4.5 Chloride 108 Carbon Dioxide 26 Anion Gap 11 L BUN 18 H Creatinine 0.82 0.79 Estim Creat Clear Calc 96.6 104.4 Estimated GFR > 60 > 60 Fasting Glucose 154 H Calcium 9.4 Imaging Radiologist's impression: Impressions Knee X-Ray 06/03/24 10:28 IMPRESSION: Status post right total knee replacement. Electronically signed by: Valentina Castillo MD 06/03/2024 11:59 AM EDT RP Assessment and Plan (1) Atrial fibrillation: Status: Acute Plan 68-year-old gentleman with known history of paroxysmal atrial fibrillation on flecainide and diltiazem. He was on apixaban for anticoagulation. He is here for total knee replacement. Postop he had episode of atrial fibrillation. This was self-limiting and he is back in sinus rhythm at this stage. Continue same medicines and can resume his diltiazem and flecainide at discharge. Eliquis for anticoagulation as per surgical team whenever they are comfortable to start. Signing off. Procedures Date of Service Date of Service: 06/04/24
--- NOTE | 2024-06-04 10:44 | MHC.CM.PN ---
IMM DELIVERED PT LIVES ALONE. INDEPENDENT AT BASELINE. +HCP PCP DR. KHAI MORRISON DP: PT HAS BEEN RECOMMENDED FOR STR, PT CHOOSES [facility] [place]. [facility] HAS OFFERED A BED PENDING AUTH. PT WILL NEED BLS TRANSPORT. CM WILL CONTINUE TO FOLLOW FOR ANY CHANGE TO DC PLAN/NEEDS
[2024-06-04 11:00] VITALS: BP 141/67; PULSE 67; RESP 18; TEMP 36.4; O2SAT 97
[2024-06-04] MEDS: oxyCODONE HCl Immed Release 5 MG TABLET PO ×2 (11:49→16:15)
[2024-06-04] MEDS: Acetaminophen 325 MG TABLET 650 MG PO (11:49)
[2024-06-04] MEDS: HYDROmorphone HCl 0.5 MG/0.5 ML SYRINGE 0.25 MG IVPUSH (11:54)
[2024-06-04 13:30] VITALS: BP 141/67; PULSE 67; O2SAT 97
--- NOTE | 2024-06-04 13:39 | PC.NURSE ---
Pt to be sent to SNF, IV Pulled by Primary RN Toña. Paperwork printed and placed in folder for EMS to transport patient. Warm Handoff.
--- NOTE | 2024-06-04 14:03 | MHC.CM.PN ---
DP: PT HAS BEEN MEDICALLY CLEARED FOR DC TO STR AT [facility]. BLS TRANSPORT BOOKED FOR 4 PM VIA [facility]. [facility] AUTH FOR TRANSPORT OBTAINED . BOOKING ID # [id number]. RN UPDATED. [facility] HAS OBTAINED INSURANCE AUTH AND ARE AWARE OF TRANSFER TIME
[2024-06-04 15:00] VITALS: BP 156/78; PULSE 70; RESP 18; TEMP 36.5; O2SAT 97
== END 2024-06-04 17:28 | disposition home or self-care (01) ==
LOC: HO.SSS 06:29 → HO.S3 10:44
PROVIDERS: Nurse Practitioner; Physician Assistant; PCP Family Medicine; Visit Provider Orthopaedic Surgery
PROC: (CPT 27447; principal; 2024-06-03 07:30)
DX: M17.11 Unilateral primary osteoarthritis, right knee (principal); M25.561 Pain in right knee; R26.2 Difficulty in walking, not elsewhere classified; I48.0 Paroxysmal atrial fibrillation; I10 Essential (primary) hypertension; I25.10 Atherosclerotic heart disease of native coronary artery without angina pectoris; G47.33 Obstructive sleep apnea (adult) (pediatric); Z79.01 Long term (current) use of anticoagulants; Z79.899 Other long term (current) drug therapy; Z98.890 Other specified postprocedural states; Z87.891 Personal history of nicotine dependence
CPT/HCPCS: 27447; 36415; 73560; 80048; 82565; 85014; 85018; 85025; 85027; 86850; 86900; 86901; 87640; 87641; 88305; 88311; 93005; 97110; 97116; 97162; C1713; C1776; J0131; J0665; J0690; J1100; J1171; J1650; J1885; J2003; J2250; J2405; J2704; J7120

== ENCOUNTER → 2024-06-03 06:29 | Outpatient (BNV) | payer OTHER, SELFPAY | PROVIDERS: PCP Family Medicine; Visit Provider Internal Medicine Cardiovascular Disease | DX: I48.91 Unspecified atrial fibrillation (principal) | CPT/HCPCS: 99222 ==

== ENCOUNTER → 2024-06-03 06:29 | Outpatient (BNV) | payer OTHER, SELFPAY | PROVIDERS: PCP Family Medicine; Visit Provider Orthopaedic Surgery | DX: M17.11 Unilateral primary osteoarthritis, right knee (principal) | CPT/HCPCS: 27447; 99024 ==

== ENCOUNTER → 2024-06-03 06:29 | Outpatient (BNV) | payer OTHER, SELFPAY | PROVIDERS: PCP Family Medicine; Visit Provider Physician Assistant | DX: Z96.651 Presence of right artificial knee joint (principal); I48.91 Unspecified atrial fibrillation | CPT/HCPCS: 99222 ==

== ENCOUNTER → 2024-06-03 06:55 | Outpatient (BNV) | payer OTHER, SELFPAY | PROVIDERS: PCP Family Medicine; Visit Provider Internal Medicine Cardiovascular Disease | DX: I48.92 Unspecified atrial flutter (principal); R94.31 Abnormal electrocardiogram [ECG] [EKG] | CPT/HCPCS: 93010 ==

== ENCOUNTER 2024-06-07 21:42 | Emergency (ER) | payer OTHER, SELFPAY ==
--- NOTE | ~2024-06-07 | CT_ITS ---
EXAMINATION: CT CHEST WITHOUT CONTRAST CLINICAL INFORMATION: Dyspnea and hiccups following knee surgery. Evaluate for pneumonia. COMPARISON: Multiple priors, most recent chest radiograph dated 06/07/2024. TECHNIQUE: Multidetector volumetric CT imaging of the chest was done. Axial MIP volume rendering provided. Sagittal and coronal reformatted images were obtained. This CT examination was performed using dose optimization techniques as appropriate, variously including the following: *Automated exposure control *Adjustment of mA and/or kV according to patient size (this includes techniques or standardized protocols for targeted exams where dose is matched to indication/reason for exam; i.e. extremities or head) *Use of iterative reconstruction technique DLP: 297 mGy-cm FINDINGS: FLORAL ASSISTANT: Unremarkable. LUNGS: No airspace consolidation. No pleural effusion or pneumothorax. The central airways are patent. MEDIASTINUM: No cardiomegaly. No pericardial effusion. No thoracic aortic dilatation. No mediastinal or hilar lymphadenopathy. Partially visualized and unremarkable thyroid. CORONARY ARTERY CALCIFICATION: Present. PLEURA: There is no pleural effusion. No pleural mass or thickening. AXILLA: No lymphadenopathy. UPPER ABDOMEN: Unremarkable. OSSEOUS STRUCTURES: Unremarkable. CT/CT chest wo IV con IMPRESSION: Unremarkable examination. Fleischner guidelines were followed. Electronically signed by: Hoang Whitman MD 06/08/2024 09:37 AM EDT
--- NOTE | ~2024-06-07 | XR_ITS ---
EXAMINATION: XR CHEST CLINICAL INFORMATION: Hiccups post surgery; dyspnea. COMPARISON: Prior chest radiographs, most recently 05/02/2022. TECHNIQUE: Frontal view of the chest was obtained. FINDINGS: No significant abnormality is noted involving the heart, lungs, mediastinum, bony thorax or soft tissues. Orthopedic anchors are applied to the left humeral head. XR/XR chest 1V IMPRESSION: Unremarkable examination. Electronically signed by: Tree Rutherford MD 06/07/2024 10:47 PM EDT
[2024-06-07 21:53] VITALS: BP 134/50; PULSE 72; RESP 20; TEMP 36.8; O2SAT 99; BMI 36.8
--- NOTE | 2024-06-07 21:59 | ECG_ITS ---
Test Reason : HICCUPS Blood Pressure : / mmHG Vent. Rate : 073 BPM Atrial Rate : 073 BPM P-R Int : 134 ms QRS Dur : 088 ms QT Int : 392 ms P-R-T Axes : 010 001 006 degrees QTc Int : 431 ms Normal sinus rhythm with PACs Normal ECG When compared with ECG of 03-JUN-2024 07:03, Sinus rhythm has replaced Atrial fibrillation Vent. rate has increased BY 24 BPM Referred By: Damari Wright Electronically Signed By:Samuel Donato
[2024-06-07 22:22] LABS: MANUAL DIFF FLAG NO
[2024-06-07] MEDS: Prochlorperazine Edisylate 10 MG/2 ML VIAL IVPUSH (22:23)
--- NOTE | 2024-06-07 22:25 | ED.GENADULT ---
HPI - General Adult General Chief complaint: General Medical Stated complaint: UNCONTROLLABLE HICCUPS FROM SNF PER EMS Time Seen by Provider: 06/07/24 21:59 Source: patient, EMS and old records reviewed Mode of arrival: EMS Limitations: no limitations History of Present Illness ED Provider: AN MOON narrative: 68 yo male with PMH of CAD, afib on eliquis, HLD, ELLEN, s/p R TKA on 06/03 who has been at acute rehab - one day post op reports persistent hiccups that will not go away. He has been on reglan and baclofen without any relief. He notes the moment he felt his block wear off the hiccups started. He does have a history of dysphagia but he has never had hiccups like this before. He denies n/v/d, fevers, chest pain, dyspnea. He states it is hard to breathe due to the hiccups. complaint: hiccups Onset (ago): day(s) (06/04) Location: mouth Radiation: non-radiation Severity: moderate Relieving factors: none Exacerbating factors: none Associated symptoms: denies other symptoms Treatments prior to arrival: none Related Data Home Medications ?Medication ?Instructions ?Recorded ?Confirmed zolpidem 10 mg tablet 10 mg PO BEDTIME PRN Sleep 08/26/20 05/22/24 lorazepam 0.5 mg tablet 1 mg PO BID 02/16/22 06/03/24 atorvastatin 40 mg tablet (Lipitor) 40 mg PO BEDTIME 05/23/24 05/23/24 diltiazem HCl 240 mg 240 mg PO DAILY 05/23/24 06/03/24 capsule,extended release 24 hr omega 6-fdw-[id number]-fish oil 900 1 cap PO QAM 05/23/24 05/23/24 mg-1,400 mg capsule,delayed release flecainide 100 mg tablet 100 mg PO BID 06/03/24 06/03/24 Previous Rx's ?Medication ?Instructions ?Recorded metoprolol tartrate 25 mg tablet 25 mg PO BID #180 tabs 08/21/23 apixaban 5 mg tablet (Eliquis) 5 mg PO BID #180 tabs 10/29/23 walker #1 ea 03/24/24 acetaminophen 325 mg tablet 650 mg (2 x 325 mg) PO Q6H PRN 06/04/24 Pain, Mild (Pain Scale 1-3), fever or headache 30 days #240 tabs celecoxib 200 mg capsule 200 mg PO BID 30 days #60 caps 06/04/24 docusate sodium 100 mg capsule 100 mg PO BID 30 days #60 caps 06/04/24 enoxaparin 40 mg/0.4 mL 40 mg (0.4 mL) subcut Q24H 1 day 06/04/24 subcutaneous syringe #0.4 mL oxycodone 5 mg tablet 5 mg PO Q4H PRN Pain, 06/04/24 Moderate(Pain Scale 4-6) 7 days #42 tabs Allergies Allergy/AdvReac Type Severity Reaction Status Date / Time No Known Allergies Allergy Verified 06/07/24 21:55 [No Known Allergies*] Review of Systems Review of Systems: Constitutional : No Fever, No Chills, No Fatigue ENT/Mouth : No sore throat, No Rhinorrhea Eyes: No Eye Pain, No Swelling, No Redness Cardiovascular : No Chest Pain, No SOB, No Dyspnea on Exertion Respiratory : No Cough, No Sputum Gastrointestinal : No Nausea, No Vomiting, No Diarrhea, No abdominal Pain, pos hiccups Genitourinary : No Dysuria, No Urinary Frequency, No Hematuria, Musculoskeletal : No joint pain, No Myalgias, No Joint Swelling Skin : No Skin Lesions, No rash Neuro : No Weakness, No Numbness, No Dizziness, no Headache Psych : No Anxiety/Panic, No Depression All other systems reviewed and are negative PMFSH Past Medical History Attestation statement: The following information was validated with the patient. Source: old records reviewed Medical History Atherosclerotic cardiovascular disease CAD (coronary artery disease) Nocturnal hypoxemia History of depression On anticoagulant therapy On beta adrian at home ELLEN (obstructive sleep apnea) Obesity (BMI 30-39.9) Essential hypertension PAF (paroxysmal atrial fibrillation) Atrial fibrillation Surgical History Hx of rotator cuff surgery Hx of colonoscopy Hx of surgical procedure History of elbow surgery History of left knee surgery History of cardioversion Family History Family History Mother No problems noted. Father No problems noted. Social History Social History Household Members: None Housing: House Are you a primary child care counselor to a significant other at home: No Do you presently have visiting nurse or other home services: No Alcohol intake: never Patient Tobacco Use Status: Former Tobacco user Tobacco use type: Cigarette Years Smoked: 1 Advance Directives: Yes Advance Directives on File: Yes Advance Directives Date on File: 04/07/21 Do you have a plan to hurt others: No Plan service: No Current occupational status: retired 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 Physical Exam ED Vital Signs: Vital Signs - 24 hr 06/07/24 21:53 06/07/24 22:45 06/07/24 22:46 Temperature 98.3 F Pulse Rate 72 Respiratory Rate 20 Blood Pressure 134/50 L Pulse Oximetry 99 83 L 100 Oxygen Delivery Method Room Air Room Air Nasal Cannula Oxygen Flow Rate 2 06/08/24 00:42 06/08/24 00:46 06/08/24 02:07 Temperature 98.5 F 98.3 F Pulse Rate 86 83 Respiratory Rate 18 18 Blood Pressure 122/53 L 112/55 L Pulse Oximetry 99 96 99 Oxygen Delivery Method Room Air Room Air Room Air Oxygen Flow Rate BMI result Body Mass Index 36.8 Appearance: Alert. Oriented X3. No acute distress. Eyes: Pupils equal, round and reactive to light. ENT: Pharynx normal. persistent hiccups even while speaking Neck: Normal inspection. Neck supple. CVS: Normal heart rate and rhythm. Pulses normal. Respiratory: No respiratory distress. Breath sounds normal. Abdomen: Soft and nontender. Skin: Skin warm and dry. Normal skin color. Normal skin turgor. Extremities: R leg is swollen but not pitting, dressing is c/d/i. No calf ttp Neuro: Oriented X 3. No motor deficit. No sensory deficit. Course Course Course Narrative: stopped hiccuping after compazine Reevaluation(s) Reevaluation #1: on discharge does not want to go back to SNF - physician observation started at 155am pending CM given his refusal to return Reevaluation #2: patient notes residential issues with dysphagia and choking at this time will order speech study and eval Medications Administered Discontinued Medications Generic Name Dose Route Start Last Admin Trade Name Freq PRN Reason Stop Dose Admin Lidocaine HCl 15 ml 06/07/24 22:31 06/07/24 22:45 Lidocaine Hcl Viscous 2 % 15 Ml Solution MUCOUS MEM 06/07/24 22:32 15 ml ONCE ONE Administration Lorazepam 0.5 mg 06/08/24 02:08 06/08/24 02:17 Lorazepam 2 Mg/Ml Vial IVPUSH 06/08/24 02:09 0.5 mg STAT STA Administration Lorazepam 0.5 mg 06/08/24 05:08 06/08/24 05:22 Lorazepam 2 Mg/Ml Vial IVPUSH 06/08/24 05:09 0.5 mg STAT STA Administration Pantoprazole Sodium 40 mg 06/07/24 22:30 06/07/24 22:45 Pantoprazole Sodium 40 Mg/10 Ml Vial IVPUSH 06/07/24 22:31 40 mg ONCE ONE Administration Prochlorperazine Edisylate 10 mg 06/07/24 21:59 06/07/24 22:23 Prochlorperazine Edisylate 10 Mg/2 Ml Vial IVPUSH 06/07/24 22:00 10 mg ONCE ONE Administration Medical Decision Making Medical Decision Making MDM Narrative: 68 yo male with PMH of CAD, afib on eliquis, HLD, ELLEN, s/p R TKA on 06/03 here with c/o hiccups since 06/04 after his block wore off - at this time it seems unusual for any operative issue or local block to cause issue. Could be due to medications, GERD, intubation. At this time, labs, EKG, CXR for effusion and diaphragmatic irritation ordered. IV compazine/ativan/protonix ordered. Differential Diagnosis Differential Diagnoses: The differential diagnosis associated with the presentation includes persistent hiccups, effusion, lyte abnormality Admission/Observation Consideration of admission/observation: Escalation of care including admission/observation considered hiccuping has stopped while sleeping did desaturation a couple of times, responded to NC responded to compazine work up negative Lab Data [facility] Lab Attestation statement: I reviewed the patient's lab results. 06/07/24 22:18 06/07/24 22:18 Labs: Lab Results 06/07/24 Range/Units 22:18 WBC 5.8 (4.8-10.8) X10*3/uL RBC 3.91 L (4.60-5.80) X10*6/uL Hgb 11.6 L (14.0-18.0) g/dl Hct 33.8 L (42.0-52.0) % MCV 86.4 (80.0-98.0) fL MCH 29.7 (27.0-33.0) pg MCHC 34.3 (31.0-36.0) g/dl RDW 12.7 (11.0-16.0) % Plt Count 213 (160-400) X10*3/uL MPV 9.1 L (9.4-12.4) fL Immature Gran % (Auto) 0.3 (0.0-0.4) % Neut % (Auto) 67.3 (45-73) % Lymph % (Auto) 21.2 (20-40) % [place] % (Auto) 10.3 (2-11) % Eos % (Auto) 0.7 (0-4) % Baso % (Auto) 0.2 (0-2) % Lymph # (Auto) 1.2 (1.2-4.9) X10*3/uL [place] # (Auto) 0.6 (0.1-1.2) X10*3/uL Eos # (Auto) 0.0 (0.0-0.4) X10*3/uL Baso # (Auto) 0.0 (0.0-0.2) X10*3/uL Abs Immat Gran (auto) 0.02 (0.00-0.03) X10*3/uL Absolute Neuts (auto) 3.9 (2.0-8.3) x10*3/uL Absolute Nucleated RBC 0.000 (0.0-0.012) X10*3/uL Nucleated RBC % (auto) 0.0 (0.0-0.2) /100WBC Sodium 137 (135-145) mmol/L Potassium 3.7 (3.3-5.1) mmol/L Chloride 102 (96-108) mmol/L Carbon Dioxide 25 (22-29) mmol/L Anion Gap 14 (12-20) BUN 15 (9-16) mg/dL Creatinine 0.83 (0.5-1.4) mg/dL Estim Creat Clear Calc 96.0 Estimated GFR > 60 Random Glucose 112 (60-115) mg/dL Calcium 9.1 (8.4-10.2) mg/dL Magnesium 2.2 (1.6-2.6) mg/dL Total Bilirubin 1.3 H (0.0-1.0) mg/dL Direct Bilirubin 0.5 (0.0-0.5) mg/dL AST 45 H (5-37) U/L ALT 21 (0-40) U/L Alkaline Phosphatase 45 (39-117) U/L Troponin I High Sens 7.2 (<3.5-35.0) ng/L Total Protein 6.2 L (6.5-8.0) g/dL Albumin 3.6 (3.5-5.0) g/dL Lipase 10 (8-78) U/L Independent Interpretation I performed an independent interpretation of an: EKG and Plain X-Ray (normal ) Interpretation: Rate: 73 Rhythm: NSR [place]: left Normal P waves. Normal CINDY. Normal QRS complex. ST T wave : no VERN, inverted t waves III, artifact in inf leads qTC: 431 prior studies: no acute ischemia The study has been interpreted contemporaneously by me. . Radiology Impression Discussion of test interpretation with radiology: I have reviewed the radiologist's reading. External Record Review External record reviewed: Inpatient record Prescription Management I considered prescription management with: Other Discharge Plan Discharge Clinical Impression: Hiccups Patient Disposition: Home, Self-Care Instructions: Hiccups (ED) Additional Instructions: labs, EKG and chest xray reassuring given 10mg compazine and he stopped hiccuping would switch to compazine off regland and start on him on pantoprazole for the next 2 weeks return for any worsening symptoms or concerns. Prescriptions: No Action metoprolol tartrate 25 mg tablet 25 mg PO BID Qty: 180 3RF Eliquis 5 mg tablet 5 mg PO BID Qty: 180 1RF (THEE) [place] [facility] [place] .MEDSUPPLY Qty: 1 0RF Rx Instructions: Dorcas grimes omega 6-qip-ivv-fish oil 900-1,400 mg Capsule,Delayed Release(Dr/Ec) 1 cap PO QAM atorvastatin [Lipitor] 40 mg tablet 40 mg PO BEDTIME diltiazem HCl 240 mg capsule,extended release 24hr 240 mg PO DAILY flecainide 100 mg tablet 100 mg PO BID celecoxib 200 mg Capsule 200 mg PO BID 30 Days Qty: 60 0RF acetaminophen 325 mg Tablet 650 mg PO Q6H PRN (Reason: Pain, Mild (Pain Scale 1-3), fever or headache) 30 Days Qty: 240 0RF docusate sodium 100 mg Capsule 100 mg PO BID 30 Days Qty: 60 0RF oxycodone 5 mg Tablet 5 mg PO Q4H PRN (Reason: Pain, Moderate(Pain Scale 4-6)) 7 Days Qty: 42 0RF Rx Instructions: Partial Fill upon patient request. enoxaparin 40 mg/0.4 mL Syringe 40 mg subcut Q24H 1 Days Qty: 0.4 0RF zolpidem 10 mg tablet 10 mg PO BEDTIME PRN (Reason: Sleep) lorazepam 0.5 mg tablet 1 mg PO BID Print Language: Kyrgyz
[2024-06-07 22:34] LABS: Basophils Percent Auto 0.2 % (0-2); Eosinophils Percent Auto 0.7 % (0-4); Hematocrit 33.8 % (42.0-52.0); Hemoglobin 11.6 g/dl (14.0-18.0); Imm Gran Abs Auto 0.02 X10*3/uL (0.00-0.03); Imm Gran Pct Auto 0.3 % (0.0-0.4); Lymphocytes Absolute Auto 1.2 X10*3/uL (1.2-4.9); Lymphocytes Percent Auto 21.2 % (20-40); Mean Corpuscular HGB Conc 34.3 g/dl (31.0-36.0); Mean Corpuscular Hemoglobin 29.7 pg (27.0-33.0); Mean Corpuscular Volume 86.4 fL (80.0-98.0); Mean Platelet Volume 9.1 fL (9.4-12.4); Monocytes Absolute Auto 0.6 X10*3/uL (0.1-1.2); Monocytes Percent Auto 10.3 % (2-11); Neutrophils Absolute Auto 3.9 x10*3/uL (2.0-8.3); Neutrophils Percent Auto 67.3 % (45-73); Platelet Count 213 X10*3/uL (160-400); Red Blood Count 3.91 X10*6/uL (4.60-5.80); Red Cell Distribution Width 12.7 % (11.0-16.0); White Blood Count 5.8 X10*3/uL (4.8-10.8)
[2024-06-07 22:45] VITALS: O2SAT 83
[2024-06-07] MEDS: Lidocaine HCl Viscous 2 % 15 ML SOLUTION MUCOUS MEM (22:45)
[2024-06-07] MEDS: Pantoprazole Sodium 40 MG/10 ML VIAL IVPUSH (22:45)
--- NOTE | 2024-06-07 22:45 | PC.NURSE ---
pt sx of hiccups resolved after compazine given per oct. pt found to be 83% on RA, arousable to name. resp even and unlabored. placed on 2L NC and sats 100%. notified. held ativan at this time. pt medicated per oct.
[2024-06-07 22:46] VITALS: O2SAT 100
[2024-06-07 22:48] LABS: Troponin-I High Sensitivity 7.2 ng/L (<3.5-35.0)
[2024-06-07 23:30] LABS: Alanine Aminotransferase 21 U/L (0-40); Albumin Level 3.6 g/dL (3.5-5.0); Alkaline Phosphatase 45 U/L (39-117); Anion Gap 14 (12-20); Aspartate Amino Transferase 45 U/L (5-37); Bilirubin Direct 0.5 mg/dL (0.0-0.5); Bilirubin Total 1.3 mg/dL (0.0-1.0); Blood Urea Nitrogen 15 mg/dL (9-16); Calcium 9.1 mg/dL (8.4-10.2); Carbon Dioxide 25 mmol/L (22-29); Chloride 102 mmol/L (96-108); Estimated Glomerular Filt Rate > 60; Glucose Random 112 mg/dL (60-115); Lipase 10 U/L (8-78); Magnesium 2.2 mg/dL (1.6-2.6); Potassium 3.7 mmol/L (3.3-5.1); Sodium 137 mmol/L (135-145); Total Protein 6.2 g/dL (6.5-8.0)
[2024-06-08] VITALS (8 sets, daily range): BP systolic 112–160; BP diastolic 53–84; PULSE 81–111; RESP 16–25; TEMP 36.5–37.4; O2SAT 95–100
--- NOTE | 2024-06-08 01:52 | PC.NURSE ---
Addendum entered by Parminder Lehman 06/08/24 02:19: PT STATES HES NOT HAPPY WITH THE CARE AT THE SNF AND WOULD LIKE TO MEET WITH CM. AWARE. TRANSFER CANCELLED. PLAN FOR CM . Original Note: REPORT GIVEN TO ROSE IBRAHIM AT [facility]. AWAITING EMS TRANSFER.
[2024-06-08] MEDS: LORazepam 2 MG/ML VIAL 0.5 MG IVPUSH ×2 (02:17→05:22)
--- NOTE | 2024-06-08 02:30 | PC.NURSE ---
pt hiccups returned. pt medicated per mar and sx resolved.
--- NOTE | 2024-06-08 05:30 | PC.NURSE ---
pt hiccups returned. pt medicated per mar and sx resolved.
[2024-06-08] MEDS: Omeprazole 40 MG CAPSULE.DR PO (06:04)
--- NOTE | 2024-06-08 06:11 | PC.NURSE ---
Addendum entered by Parminder Lehman 06/08/24 06:12: tolerates meds whole per pt. Original Note: pt reports he has been eating a soft diet as when eating whole foods pt feels he is choking and makes himself throw up. pt states he has never been evaluated by a speech therapist for this and only decided to follow this diet himself. MD made aware and order placed for speech and swallow eval. pt is currently npo.
[2024-06-08] MEDS: Metoclopramide HCl 10 MG/2 ML VIAL IVPUSH (08:48)
[2024-06-08] MEDS: Baclofen 10 MG TABLET PO ×3 (08:48→20:43)
[2024-06-08] MEDS: Prochlorperazine Maleate 5 MG TABLET 10 MG PO ×3 (10:48→20:43)
--- NOTE | 2024-06-08 11:00 | PC.NURSE ---
speech consulted and met with pt this AM - recommended GI consult d/t pts feeling that he is choking when he swallows. recommend mechanical diet in the mean time.
--- NOTE | 2024-06-08 11:30 | MHC.SL.SWA ---
Speech Pathologist Impression: Esophageal Dysphagia Risk of Aspiration Due to: Dysphasia Diet Status: Ground Mechanical (NDD2) Thin liquids, pills whole or crushed (if large) in puree. Liquid Consistency and Strategies for Safe Swallow: Liquid Intake Recommendation: Thin Liquid Intake Strategies: Unrestricted Solid Food Consistency: Dietary Recommendations: Grnd/Mech Altered (NDD2) Additional Modifications to Solid Foods: Patient should alternate bites of food with sips of liquid, with double swallow on bites of food recommended. Chew all solid/ground textures thoroughly. Oral Medication Intake: Whole with Puree Please contact the pharmacy regarding appropriate crushable or liquid drug formulations that are available whenever modified delivery is recommended. Compensatory Strategies and Precautions to be Taken for Safe Swallow: Sitting Upright (90 deg) Double Swallow Liquids from Cup Liquids from Straw Small Bites and Sips Alternate Liquids/Solids Rate of Ingestion Change Avoid Specific Foods Supervision While Eating and Drinking for Safe Swallow: None Needed Foods to Avoid: tough, hard to chew solids, dry crunchy textures, too large pieces of food. Swallowing Recommended Treatments: Compens. Strategy Educat. Recommendation for Speech: Inpatient Speech Therapy Comment: Patient presents with issues/complaints consistent with esophageal level dysphagia, with other aspects of swallow WFL. Patient currently also with chronic hiccupping which is exacerbating his swallowing issues. It is recommended patient START diet of Ground Mechanical (NDD2) with THIN liquids, pills whole or crushed (if large) in puree. Specific strategies of dry or double swallow on bites of food, and alternating solids and liquids on each bite is recommended. Patient would benefit from a GI consult for further assessment of esophageal issues. Patient during assessment was instructed with circular breathing technique, which appeared to calm hiccups during this assessment. MD RN notified of recommendations in person and again by secure Text cc to RD. DOUGH MACHINE OPERATOR will f/u 1-2X while inpatient. Frequency/Duration: Date Range for Service Req: Timeline to reassess: Peer Tutor Clinican/Clinical Fellow: No Supervisory Statement: I have reviewed and agree with the student/clinical fellow's documentation: N/A Speech Language Pathologist: Jennifer Ferrer M.A., [facility]-DOUGH MACHINE OPERATOR
--- NOTE | 2024-06-08 12:25 | PC.NURSE ---
assumed care of patient at 11am. patient moved into hospital bed for comfort, mathieu dressing noted to be on right knee. patient has intermittent hiccups, patient appears to become uncomfortable when these episodes happen. respirations equal and unlabored, skin dry and intact. patient alert and oriented x4.
--- NOTE | 2024-06-08 13:09 | PC.NURSE ---
patient assisted wth urinal, output 500ml
--- NOTE | 2024-06-08 15:33 | MHC.CM.PN ---
Patient s/p TKA discharge to [facility] 06/04/24. He returned to [facility] 06/07/24. Patient reports that once is anesthesia block wore off the hiccups began. He was BIBA to [facility] for treatment of the hiccups. Met with the patient in ER#9. He continued with hiccups throughout the interview. CRISIS MANAGER eval recommends Mech soft diet. A GI consult is recommended, per CRISIS MANAGER documentation. A PT eval is planned for tomorrow. A referral has been sent to [facility] at the patients request. [facility] has been sent a referral for Home health aid and [facility]. DP pending PT eval: Home with [facility] and [facility]. Patient may need assist with transportation.
--- NOTE | 2024-06-08 18:54 | PC.NURSE ---
patient ambulated with steady gait and walker to bathroom 1 assist with this RN
--- NOTE | 2024-06-08 19:17 | PC.NURSE ---
report from Mary IBRAHIM, assume care of pt at this time, pt to be moved to Overflow
--- NOTE | 2024-06-08 19:29 | MHC.EDTECH ---
This tech assumed care of patient at 1900,patient moved from the main ED,to overflow,rounded and introduced self to patient,patient is resting quietly,water placed at bedside,call sarkar within reach
--- NOTE | 2024-06-08 19:42 | MHC.EDTECH ---
Belongings list completed at this time,copy placed in chart
[2024-06-08] MEDS: Valproic Acid (as Sodium Salt) 750 MG in Dextrose 5 % 50 ML 57.5 MG IV (20:43)
--- NOTE | 2024-06-08 21:20 | MHC.EDTECH ---
Rounded/vitals completed,BY is elevated RN made aware,patient is resting quietly watching TV,call sarkar in reach
--- NOTE | 2024-06-08 21:50 | MHC.EDTECH ---
Emptied 350MLS of yellow urine from urinal,patient drank 120MLSof water
--- NOTE | 2024-06-08 23:58 | PC.NURSE ---
resting quietly, with eyes closed, resp with ease, cont plan of care
--- NOTE | 2024-06-09 03:43 | PC.NURSE ---
pt states he woke up, and is now hiccuping again, denies any needs, will cont plan of care
[2024-06-09 05:49] VITALS: BP 160/68; PULSE 88; RESP 18; TEMP 37.2; O2SAT 96
[2024-06-09] MEDS: Omeprazole 40 MG CAPSULE.DR PO (06:14)
[2024-06-09 08:26] VITALS: BP 160/68; PULSE 88; O2SAT 96
[2024-06-09] MEDS: Baclofen 10 MG TABLET PO ×3 (08:54→21:41)
[2024-06-09] MEDS: Prochlorperazine Maleate 5 MG TABLET 10 MG PO ×3 (08:54→21:41)
--- NOTE | 2024-06-09 08:57 | MHC.EDTECH ---
Hourly round completed, patient got helped to the bathroom using the walker and got cleaned up and got back to his bed, Resting quietly and call sarkar within reach.
--- NOTE | 2024-06-09 09:23 | PC.NURSE ---
Pharmacy completing med rec at this time, will have provider order pts meds once complete. Pt is alert and oriented, breathing even and unlabored, does have period of hiccups that self-resolved. Reports pain to right knee.
--- NOTE | 2024-06-09 10:44 | PHA.MEDREC ---
Addendum entered by Ge Bansal RPh 06/09/24 11:31: Reviewed by [facility]. Pt has Lovenox inpatient, and has not been on a blood thinner since discharge. pt denied taking Lovenox and Eliquis since discharge. Will alert provider of this. Original Note: Pharmacy Consult ? Medication Reconciliation Pharmacy has completed the medication reconciliation.Confirmed medications with patient and RX bottles pt had picture of on phone. The patient confirmed he had surgery on 06/03 on and stopped his Atorvastatin 40mg, Eliquis 5mg, and Acetaminophen 500mg tabs on 06/01. He confirmed his Lorazepam increased in doseage in the last few weeks per the patient and he states he now takes 1 Lorazepam 0.5mg tab and 1 Lorazepam 1mg tab together every day for his Anxiety and states he stopped that for the surgery along with Zolpidem 10mg tab as needed for sleep on 06/02/24. He stopped his Diltiazem 240mg tab, Flecinide 100mg and Metoprolol 25mg tab on the day of surgery 06/03 and states he has not taken any of his meds since those dates and was waiting to speak to his PCP before starting them again. He states he did not finish the Oxycodone 5mg tab due to it giving him stomach aches and he wasn't feeling great on it.
--- NOTE | 2024-06-09 12:13 | MHC.SL.SWA ---
Speech Pathologist Impression: Esophageal Dysphagia Risk of Aspiration Due to: Pt reported recent onset of SOB upon waking in the morning, chronic myoclonis (since 09/05), coughing up solid foods d/t esophageal dysphagia, and hx of oral phase dysphagia d/t missing dentition. Pt and partner provided with education on physiological function of swallow mechanism, characteristics of each phase, and written material to review re:dysphagia, diet recommendations, and overt s/s of aspiration to be aware of during PO intake. GI consult is pending, RD to consult as well. Dysphasia Diet Status: Liquid Consistency and Strategies for Safe Swallow: Liquid Intake Recommendation: Thin Liquid Intake Strategies: Unrestricted Solid Food Consistency: Dietary Recommendations: Grnd/Mech Altered (NDD2) Additional Modifications to Solid Foods: Patient should alternate bites of food with sips of liquid, with double swallow on bites of food recommended. Chew all solid/ground textures thoroughly. Oral Medication Intake: Whole with Puree Please contact the pharmacy regarding appropriate crushable or liquid drug formulations that are available whenever modified delivery is recommended. Compensatory Strategies and Precautions to be Taken for Safe Swallow: Sitting Upright (90 deg) Double Swallow Liquids from Cup Liquids from Straw Small Bites and Sips Alternate Liquids/Solids Rate of Ingestion Change Avoid Specific Foods Supervision While Eating and Drinking for Safe Swallow: None Needed Foods to Avoid: tough, hard to chew solids, dry crunchy textures, too large pieces of food. Swallowing Recommended Treatments: Compens. Strategy Educat. Recommendation for Speech: Inpatient Speech Therapy Comment: Patient presents with issues/complaints consistent with esophageal level dysphagia, with other aspects of swallow WFL. Patient currently also with chronic hiccupping which is exacerbating his swallowing issues. It is recommended patient START diet of Ground Mechanical (NDD2) with THIN liquids, pills whole or crushed (if large) in puree. Specific strategies of dry or double swallow on bites of food, and alternating solids and liquids on each bite is recommended. Patient would benefit from a GI consult for further assessment of esophageal issues. Patient during assessment was instructed with circular breathing technique, which appeared to calm hiccups during this assessment. , RN notified of recommendations in person and again by secure Text cc to RD. PLUNKET NURSE will f/u 1-2X while inpatient. Frequency/Duration: Date Range for Service Req: Timeline to reassess: Advance Seal Delivery System Maintainer Clinican/Clinical Fellow: No Supervisory Statement: I have reviewed and agree with the student/clinical fellow's documentation: N/A Speech Language Pathologist: Joan Avila M.S., [facility]UNKET NURSE
--- NOTE | 2024-06-09 13:37 | MHC.CM.ED ---
Patient remains in ER overflow. Physical therapy eval completed. Short term rehab is recommended. Met with patient in regards to discharge planning. He still feels he can safely d/c home with [facility] and bull riveter that are already arranged. He is just concerned because he has been having swallowing issues and is worried about going home and choking. He is hoping to have answers to why this is happening before he is d/c'd. T/W explained this might not be able to be explained. Patient verbalized understanding. Patient aware, Chyna TIRE TRUCKER, will be made aware of his concern and asked to speak with patient. Patient verbalized understanding. Continue to monitor for d/c needs.
[2024-06-09 14:26] VITALS: BP 158/70; PULSE 95; RESP 20; TEMP 36.6; O2SAT 98
[2024-06-09] MEDS: Acetaminophen 325 MG TABLET 975 MG PO (17:37)
--- NOTE | 2024-06-09 17:39 | PC.NURSE ---
Pt requested tylenol and more ice packs for right knee, provided and medicated per MAR
--- NOTE | 2024-06-09 20:04 | MHC.EDTECH ---
This pct assumed care of Patient at 1910 ,Patient socks was change to yellow socks and bed alarm turn .Patient refused telle sitflorence Camera ,Patient stated he will ring when he need help ,RN aware of Patient refusal of penny Elizalde .
[2024-06-09 20:35] VITALS: BP 138/80; PULSE 92; RESP 16; TEMP 37.1; O2SAT 96
[2024-06-09] MEDS: Metoprolol Tartrate 25 MG TABLET PO (21:40)
[2024-06-09] MEDS: Atorvastatin Calcium 40 MG TABLET PO (21:41)
[2024-06-09] MEDS: LORazepam 1 MG TABLET PO (21:41)
[2024-06-09] MEDS: Zolpidem Tartrate 5 MG TABLET PO (21:41)
[2024-06-09] MEDS: LORazepam 0.5 MG TABLET PO (21:41)
[2024-06-09] MEDS: Apixaban 5 MG TABLET PO (21:41)
[2024-06-09] MEDS: Flecainide Acetate 50 MG TABLET 100 MG PO (22:15)
--- NOTE | 2024-06-10 | PC.NURSE ---
This telegraphic typewriter installer assumed care of this Pt at 2300. Pt A&Ox3, reports effectiveness of Tylenol given by previous RN. Pt given ice packs for left knee. Knee is wrapped. Pt repositions on own, using urinal at bedside independently. Plan of care on going.
[2024-06-10 06:00] VITALS: BP 148/70; PULSE 71; RESP 16; TEMP 37.2; O2SAT 96
[2024-06-10] MEDS: Omeprazole 40 MG CAPSULE.DR PO (06:10)
[2024-06-10 08:53] VITALS: BP 138/73; PULSE 91; RESP 16; TEMP 37; O2SAT 96
[2024-06-10] MEDS: LORazepam 0.5 MG TABLET PO (08:57)
[2024-06-10] MEDS: Apixaban 5 MG TABLET PO (08:58)
[2024-06-10] MEDS: Baclofen 10 MG TABLET PO (08:58)
[2024-06-10] MEDS: LORazepam 1 MG TABLET PO (08:58)
[2024-06-10] MEDS: Prochlorperazine Maleate 5 MG TABLET 10 MG PO (08:58)
--- NOTE | 2024-06-10 09:52 | PC.NURSE ---
assumed care of patient at 0700, patient is awake and alert, ate breakfast. patient medicated per OCT, patient ambulates one assist with walker. no noted hiccuping this morning, skin dry and intact. respirations equal and unlabored.
[2024-06-10] MEDS: dilTIAZem HCL CD 240 MG CAP.ER.DEG PO (10:08)
[2024-06-10] MEDS: Metoprolol Tartrate 25 MG TABLET PO (10:08)
[2024-06-10] MEDS: Flecainide Acetate 50 MG TABLET 100 MG PO (10:09)
--- NOTE | 2024-06-10 11:31 | MHC.CM.ED ---
Patient remains in ER overflow. Will d/c home with [facility] for halfway and physical therapy. Monique ANNE booked for 1pm. Patient, Mary IBRAHIM and Lisa CRAMER aware. Continue to monitor for d/c needs.
== END 2024-06-10 13:34 | disposition home or self-care (01) ==
PROVIDERS: Emergency Provider Emergency Medicine; PCP Family Medicine
DX: R06.6 Hiccough (principal); R13.10 Dysphagia, unspecified; I48.0 Paroxysmal atrial fibrillation; Z87.891 Personal history of nicotine dependence; Z79.01 Long term (current) use of anticoagulants; Z79.02 Long term (current) use of antithrombotics/antiplatelets; Z79.899 Other long term (current) drug therapy
CPT/HCPCS: 36415; 71045; 71250; 80048; 80076; 83690; 83735; 84484; 85025; 93005; 96365; 96375; 96376; 97162; 99285; J0737; J2060; J2470; J2765

== ENCOUNTER → 2024-06-07 21:59 | Outpatient (BNV) | payer OTHER, SELFPAY | PROVIDERS: Emergency Provider Emergency Medicine; PCP Family Medicine Geriatric Medicine; Visit Provider Internal Medicine Cardiovascular Disease | DX: R06.09 Other forms of dyspnea (principal); R06.6 Hiccough | CPT/HCPCS: 93010 ==

== ENCOUNTER 2024-06-19 12:18 | Outpatient (AMB) | payer OTHER, SELFPAY ==
--- NOTE | 2024-06-19 12:23 | A.OFFVIS_ITS ---
Intake Visit Reasons: 2WK PO: R TKA w/NE 06/03/24 Intake Note: Donald a 68 year old male who presents today for a post operative visit s/p right TKA on 06/03/24 NE. Patient reports having pain mostly in his thigh area. His current pain level is 12 out of 10. He continues to work with at home therapy. Finds no relief with Tylenol and a little relief with icing. Allergies No Known Allergies [No Known Allergies*] Allergy (Verified 06/19/24 12:40) Medication List - Last Reconciled 06/19/24 by Joanna Gamez PA-C acetaminophen 1,000 mg PO Q6H PRN apixaban (Eliquis) 5 mg PO BID atorvastatin (Lipitor) 40 mg PO BEDTIME diltiazem HCl CD 240 mg PO DAILY flecainide 100 mg PO BID lorazepam (Ativan) 1 mg PO BID lorazepam 0.5 mg PO BID metoprolol tartrate 25 mg PO BID oxycodone 5 mg PO Q6H PRN 7 days walker Folding Front wheeled walker zolpidem 10 mg PO BEDTIME PRN HPI HPI 2WK PO: R TKA w/NE 06/03/24: Details: 68 yo male returns to the office today s/p RT TKA 06/03/24 with NE. He states he is walking with a walker, working with PT at home. No concerns. [facility] Medical History Atherosclerotic cardiovascular disease CAD (coronary artery disease) Nocturnal hypoxemia History of depression On anticoagulant therapy On beta adrian at home ELLEN (obstructive sleep apnea) Obesity (BMI 30-39.9) Essential hypertension PAF (paroxysmal atrial fibrillation) Atrial fibrillation Surgical History Hx of rotator cuff surgery Hx of colonoscopy Hx of surgical procedure History of elbow surgery History of left knee surgery History of cardioversion Family History Mother No problems noted. Father No problems noted. Social History Household Members: None Housing: House Are you a primary women's health care nurse practitioner to a significant other at home: No Do you presently have visiting nurse or other home services: No Alcohol intake: never Patient Tobacco Use Status: Former Tobacco user Tobacco use type: Cigarette Years Smoked: 1 Advance Directives Date on File: 04/07/21 service: No Current occupational status: retired 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 Review of Systems Const All systems reviewed & are unremarkable except as noted in HPI and below Physical Exam Extrem Other: incision clean dry and intact. [place] intact. No erythema or joint effusion. ROM 0-90 Calf supple nontender. Neurovascularly intact. Assessment & Plan Assessment & Plan (1) Status post total right knee replacement: Code(s): Z96.651 - Presence of right artificial knee joint Category: Surgical Plan: Left knee kenton removed Steri-Strips applied. They will transition to outpatient physical therapy to work on range of motion quad strengthening and gait training exercises. They will continue her anticoagulant therapy for another 4 weeks. They will require antibiotic prophylaxis for any upcoming dental work. They do understand no dental cleanings for 3 weeks postop. They will see us back on 07.14.24 for their routine postop appointment with Dr. Dominguez, sooner if needed. Medications: New oxycodone Partial Fill upon patient request. 5 mg PO Q6H PRN 28 tabs 0RF pain 7 days Coding Level of Care Code Global (46918) Diagnoses Status post total right knee replacement Z96.651
== END 2024-06-19 13:07 | disposition home or self-care (01) ==
LOC: HO.HOS 12:19
PROVIDERS: PCP Family Medicine; Visit Provider Physician Assistant
DX: Z96.651 Presence of right artificial knee joint (principal)
CPT/HCPCS: 99024

== ENCOUNTER → 2024-06-19 12:18 | Outpatient (BNVA) | payer OTHER, SELFPAY | PROVIDERS: PCP Family Medicine; Visit Provider Physician Assistant | DX: M79.651 Pain in right thigh (principal); Z47.1 Aftercare following joint replacement surgery; Z96.651 Presence of right artificial knee joint | CPT/HCPCS: 99212 ==

== ENCOUNTER 2024-06-23 14:38 | Outpatient (AMB) | payer OTHER, SELFPAY ==
--- NOTE | 2024-06-23 14:39 | A.OFFVIS_ITS ---
Vital Signs 06/23/24 14:41 BP 123/60 Blood Pressure Location Lt brachial Position Sitting Pulse 69 Intake Visit Reasons: ED referred for Uncontrollable Hiccupps Intake Note: Donald presents in the office as a follow up to the ED. CC: HE states that the hiccups have been gone for 4 days now. He states that he was getting heartburn as well his hiccups were due to his airways and started to choke. Human Services Case Manager Required: Yes Human Services Case Manager Name: Brown [id number] Allergies No Known Allergies [No Known Allergies*] Allergy (Verified 06/23/24 14:45) HPI Comments Details: 68 y.o M CAD, afib on eliquis, HLD, ELLEN, s/p R TKA on 06/03 who was seen in the ER 2 weeks ago for intractable hiccups. Reports the hiccups started the day after he got discharged. Has never had issues with anesthesia in the past. At rehab they he was started on Baclofen and Reglan without much response. Pt then progressed to have choking sensation and difficulty swallowing and therefore was sent to ER. He was given compazine and IV depakote in the ER. ST eval was initiated. Eventually discharged after obs x 3 days. Now pt reports resolution of hiccups x 4 days but weary of progressing his diet as he fears the sx may return. Pt reports no baseline sx of dysphagia, or difficulty breathing prior to the knee surgery. [facility] Medical History Atherosclerotic cardiovascular disease CAD (coronary artery disease) Nocturnal hypoxemia History of depression On anticoagulant therapy On beta adrian at home ELLEN (obstructive sleep apnea) Obesity (BMI 30-39.9) Essential hypertension PAF (paroxysmal atrial fibrillation) Atrial fibrillation Surgical History Hx of rotator cuff surgery Hx of colonoscopy Hx of surgical procedure History of elbow surgery History of left knee surgery History of cardioversion Family History Mother No problems noted. Father No problems noted. Social History Household Members: None Housing: House Are you a primary pharmacy care coordinator to a significant other at home: No Do you presently have visiting nurse or other home services: No Alcohol intake: never Patient Tobacco Use Status: Former Tobacco user Tobacco use type: Cigarette Years Smoked: 1 Advance Directives Date on File: 04/07/21 service: No Current occupational status: retired 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 Review of Systems Const All systems reviewed & are unremarkable except as noted in HPI and below Physical Exam Vital Signs: Last Vital Signs Pulse 69 06/23/24 14:41 BP 123/60 06/23/24 14:41 Arrives with EMT in a stretcher Abd soft, nontender RLE with nonpitting edema Assessment & Plan Assessment & Plan (1) Hiccups: Code(s): R06.6 - Hiccough Category: Medical (2) Dysphagia: Code(s): R13.10 - Dysphagia, unspecified Category: Medical (3) History of adenomatous polyp of colon: Comment: 02/2019 Code(s): Z86.010 - Personal history of colon polyps Category: Medical Plan 1. Hiccups/dysphagia: now resolved but pt reports sensation of food getting stuck in upper throat and therefore hesitant to progress his diet. Discussed barium swallow and EGD. Pt hesitant to pursue EGD right away. Prefers to wait for the barium swallow results. 2. Hx of colon polyps. Actually sees Dr Hernandez for his colos. Due for one this year as had a TA in 06/2019. This can be booked at the same time as EGD (if needed). Pt was advised to call whichever office he'd like to cont care with for EGD/colo. Orders: Orders [place] barium swallow Today R06.6 - Hiccough, R13.10 - Dysphagia, unspecified Coding Level of Care Code New Pt Level 4 (71723) Diagnoses Hiccups R06.6 Dysphagia R13.10 History of adenomatous polyp of colon Z86.010
[2024-06-23 14:41] VITALS: BP 123/60; PULSE 69
== END 2024-06-23 15:29 | disposition home or self-care (01) ==
PROVIDERS: PCP Family Medicine; Visit Provider Internal Medicine
DX: R06.6 Hiccough (principal); R13.10 Dysphagia, unspecified; Z86.0100 Personal history of colon polyps, unspecified
CPT/HCPCS: 99204

== ENCOUNTER → 2024-06-23 14:38 | Outpatient (BNVA) | payer OTHER, SELFPAY | PROVIDERS: PCP Family Medicine; Visit Provider Internal Medicine | DX: R06.6 Hiccough (principal); R13.10 Dysphagia, unspecified; Z86.0100 Personal history of colon polyps, unspecified | CPT/HCPCS: 99202 ==

== ENCOUNTER 2024-07-14 09:30 | Outpatient (AMB) | payer OTHER, SELFPAY ==
--- NOTE | 2024-07-14 09:43 | MHC.OFFVIS ---
Intake Visit Reasons: PO - Right TKA 06/03/24 Intake Note: Donald is a 68 year old male who presents today for a post operative appointment s/p Right Total Knee Arthroplasty on 06/03/24. Patient reports that he is doing well with some continued pain - he ambulates with a walker. Allergies No Known Allergies [No Known Allergies*] Allergy (Verified 06/23/24 14:45) HPI HPI PO - Right TKA 06/03/24: Details: Donald is a 68 year old male who presents today for a post operative appointment s/p Right Total Knee Arthroplasty on 06/03/24. Patient reports that he is doing well with some continued pain - he ambulates with a walker. He has not yet done outpatient physical therapy. He is on Eliquis at baseline. He has some swelling this is improving. His pain is minimal PFSH Medical History Atherosclerotic cardiovascular disease CAD (coronary artery disease) Nocturnal hypoxemia History of depression On anticoagulant therapy On beta adrian at home ELLEN (obstructive sleep apnea) Obesity (BMI 30-39.9) Essential hypertension PAF (paroxysmal atrial fibrillation) Atrial fibrillation Surgical History Hx of rotator cuff surgery Hx of colonoscopy Hx of surgical procedure History of elbow surgery History of left knee surgery History of cardioversion Family History Mother No problems noted. Father No problems noted. Social History Household Members: None Housing: House Are you a primary career development consultant to a significant other at home: No Do you presently have visiting nurse or other home services: No Alcohol intake: never Patient Tobacco Use Status: Former Tobacco user Tobacco use type: Cigarette Years Smoked: 1 Advance Directives Date on File: 04/07/21 service: No Current occupational status: retired 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 Physical Exam Extrem Other: Incision clean dry and intact Tendon 90 degrees of motion. 1+ symmetrical edema with no calf tenderness. Assessment & Plan Assessment & Plan (1) Status post total right knee replacement: Code(s): Z96.651 - Presence of right artificial knee joint Category: Surgical Plan: Donald is doing okay. He has pain with flexion and has not been doing physical therapy as an outpatient. Not sure why he has waited as the order has been in but I reordered it and re-emphasized the importance. Follow up 6 weeks. Orders: Orders PT Evaluation and Treatment Today Z96.651 - Presence of right artificial knee joint Coding Level of Care Code Global (79050) Diagnoses Status post total right knee replacement Z96.651
== END 2024-07-14 11:14 | disposition home or self-care (01) ==
PROVIDERS: PCP Family Medicine; Visit Provider Orthopaedic Surgery
DX: Z96.651 Presence of right artificial knee joint (principal)
CPT/HCPCS: 99024

== ENCOUNTER → 2024-07-14 09:30 | Outpatient (BNVA) | payer OTHER, SELFPAY | PROVIDERS: PCP Family Medicine; Visit Provider Orthopaedic Surgery | DX: Z96.651 Presence of right artificial knee joint (principal) | CPT/HCPCS: 99212 ==

== ENCOUNTER 2024-07-30 13:28 | Outpatient (AMB) | payer OTHER, SELFPAY ==
--- OUTSIDE RECORDS SUMMARY | 2024-07-30 13:30 | XMS_ITS | Patient Health Record ---
Author Organization [facility] Address [address] [place] [address] Care Team Providers Care Admitting Supervisor Name Role Phone Denice Mckinley Primary Care Provider Claudio Lawson [phone] REASON FOR REFERRAL No Information MEDICATIONS Medication SIG (Take, Route, Frequency, Duration) Notes Start Date End Date Status Dulcolax (colon prep) 5 MG take at 3:00 p.m and 7:00p.m. Orally two tablets twice a day for one day for 1 day 05/15/2019 Active Ambien 10 MG 1 tablet at bedtime as needed Orally Once a day Active MiraLax (colon prep) 8.3 ounce ((238) grams mixed with gatorade or crystal light orally begin at 5:00 p.m. the day before the procedure for 1 day 05/15/2019 Active Advil Migraine 200 MG 1 capsule with carmen d or milk as needed Orally as needed Active IMMUNIZATIONS Vaccine Route Administration Date Status Comme nts Influenza Unknown 05/09/2019 Administered SOCIAL HISTORY Tobacco Use: Social History Observation Description Date Details (start date - stop date) Former Smoker NA - NA Sex Assigned At : Social History Observation Description Sex Assigned At Unknown Tobacco Use/Smoking Question Answer Notes Patient is a former smoker When did you stop smoking? 30 plus years ago How long has it been since you last smoked? > 10 years Alcohol Screen Question Answer Notes Did you have a drink contain ing alcohol in the past year? Yes How often did you have a dri nk containing alcohol in the past year? 2 to 4 times a month (2 points) How many drinks did you have on a typical day when you were drinking in the past year? 3 or 4 drinks (1 point) How often did you have 6 or more drinks on one occasion in the past year? Never (0 point) Points 3 Interpretation Negative PROBLEMS Problem Type ICD Code Onset Dates Problem Status W/U Status Risk SNOMED Code Notes Problem History of adenomatous polyp of colon (Z86.010) Active confirmed 153802065 Problem Encounter for screening for malignant neoplasm of colon (Z12.11) Active confirmed 431378468 PLAN OF TREATMENT Pending Test Test Name Order Date GI BIOPSY 06/23/2019 Future Test Test Name Order Date COLONOSCOPY 05/15/2019 Insurance Providers Payer Name Payer Address Payer Phone Subscriber Number Group Number Insured Name Patient Relationship to Insured Coverage Start Date Coverage End Date MEDICARE OF [place] [address] [place] [address] [id number] REINALDO SAENZ Self - patient is the insured MEDICAID OF [facility] [address] [place] [address] [id number] REINALDO SAENZ Self - patient is the insured MEDICAL (GENERAL) HISTORY Medical History History ICD Code Denies GA,DM,CVA,Lung disease,renal dise ase Colonoscopy in 09/2013 at [facility] with removal of a tubular adenoma-Dr. Kent ADD Surgical History Surgery Date(Month/Year) Elbow left Left knee surgery Biceps on the left
--- NOTE | 2024-07-30 13:31 | MHC.OFFVIS ---
Vital Signs 07/30/24 13:32 Height 5 ft 6 in Weight 231 lb 7.766 oz BMI 37.4 BP 130/62 Blood Pressure Location Lt brachial Position Sitting Pulse 66 Pulse Source Monitor Intake Visit Reasons: 6m follow up Allergies No Known Allergies [No Known Allergies*] Allergy (Verified 06/23/24 14:45) Medication List - Last Reconciled 07/30/24 by Rodolfo Sims MD acetaminophen 1,000 mg PO Q6H PRN apixaban (Eliquis) 5 mg PO BID atorvastatin (Lipitor) 40 mg PO BEDTIME diltiazem HCl CD 240 mg PO DAILY flecainide 100 mg PO BID lorazepam (Ativan) 1 mg PO BID lorazepam 0.5 mg PO BID metoprolol tartrate 25 mg PO BID oxycodone 5 mg PO Q6H PRN 7 days walker Folding Front wheeled walker [Wheelchair w foot rests As directed] zolpidem 10 mg PO BEDTIME PRN HPI Comments Details: Donald returns for follow-up regarding paroxysmal atrial fibrillation. He is maintained on a combination of flecainide, diltiazem as well as metoprolol. He is also on anticoagulation with Eliquis. To recall, he came for shoulder surgery in 2019. At that time he was found to be in atrial fibrillation. Then cardioverted and started on flecainide. He had another recurrence, but we increased flecainide dose and he converted to sinus. More recently, had knee surgery and after that, had atrial fibrillation again but converted back to sinus rhythm. Overall, intermittent episodes over the last few years but maintaining sinus rhythm overall. Otherwise, was having some atypical chest pains that led to coronary CTA showing mild CAD. Since last seen, no new concerns. [facility] Medical History Atherosclerotic cardiovascular disease CAD (coronary artery disease) Nocturnal hypoxemia History of depression On anticoagulant therapy On beta adrian at home ELLEN (obstructive sleep apnea) Obesity (BMI 30-39.9) Essential hypertension PAF (paroxysmal atrial fibrillation) Atrial fibrillation Surgical History Hx of rotator cuff surgery Hx of colonoscopy Hx of surgical procedure History of elbow surgery History of left knee surgery History of cardioversion Family History Mother No problems noted. Father No problems noted. Social History Household Members: None Housing: House Are you a primary infant childcare provider to a significant other at home: No Do you presently have visiting nurse or other home services: No Alcohol intake: never Patient Tobacco Use Status: Former Tobacco user Tobacco use type: Cigarette Years Smoked: 1 Advance Directives Date on File: 04/07/21 service: No Current occupational status: retired 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 Review of Systems Const Denies weakness ENT Denies dizziness Card Denies chest pain, Denies chest pain with activity, Denies syncope, Denies rapid heart rate, Denies pedal edema, Denies edema, Denies leg edema, Denies lightheadedness, Denies palpitations, Denies dyspnea, Denies dyspnea on exertion and Denies orthopnea Resp Denies cough, Denies dyspnea and Denies dyspnea on exertion GI Denies hematochezia and Denies change in stool character Musc Denies abnormal gait, Denies muscle cramps, Denies muscle weakness, Denies numbness, Denies radiating pain into limb and Denies tingling Neuro Denies abnormal gait, Denies dizziness, Denies syncope, Denies numbness, Denies tingling and Denies weakness Endo Denies palpitations Physical Exam Vital Signs: Last Vital Signs Pulse 66 07/30/24 13:32 BP 130/62 07/30/24 13:32 BMI result Body Mass Index 37.4 Const General: comfortable and no acute distress Orientation/consciousness: patient oriented x3 HEENT Other: Unremarkable Head: Yes normal to inspection Neck Neck: Yes normal visual inspection Chest Chest palpation & inspection: normal inspection of the chest Resp Auscultation: clear to auscultation bilaterally Cardio Palpation: normal PMI Heart sounds: S1 normal heart sound present, S2 normal heart sound present, no gallops, no murmurs and no rubs GI Palpation (GI): Soft to palpation Back/Spine/Pelvis Other: unremarkable Skin General skin exam: no rashes or lesions noted Neuro General: patient oriented x3 Extrem General: Yes normal to inspection Psych Mental Status: mental status grossly normal Office Procedures EKG Details: EKG with underlying sinus rhythm at 66/Min; no significant ST-T changes and otherwise unremarkable. Top normal [place]; [place]. [id number], Complete Assessment & Plan Assessment & Plan (1) PAF (paroxysmal atrial fibrillation): Code(s): I48.0 - Paroxysmal atrial fibrillation Category: Medical Plan: Maintained on flecainide/metoprolol/diltiazem/Eliquis. We discussed about EP referral for consideration of ablation and he seems interested. Referral made. In the echocardiogram from 2021, LVEF 55-60%. Left atrium mildly dilated. We will repeat. (2) Encounter for monitoring flecainide therapy: Code(s): Z51.81 - Encounter for therapeutic drug level monitoring; Z79.899 - Other intermediate project manager (current) drug therapy Category: Medical Plan: Stable. (3) Atherosclerotic cardiovascular disease: Code(s): I25.10 - Atherosclerotic heart disease of [place] coronary artery without angina pectoris Category: Medical Plan: Coronary CTA-mild stenosis proximal LAD. Minimal stenosis in the proximal circumflex. Findings discussed with patient. On statins. Check lipids and LFTs. (4) ELLEN (obstructive sleep apnea): Comment: mild-no CPAP Code(s): G47.33 - Obstructive sleep apnea (adult) (pediatric) Category: Medical Plan: Not on regular CPAP. Mainly treated by weight loss. Orders: Orders CA echo transthoracic complete Today I48.0 - Paroxysmal atrial fibrillation Referrals Cardiac Electrophysiology Referral I48.0 - Paroxysmal atrial fibrillation Coding Level of Care Code Est Pt Level 4 (03413) Diagnoses PAF (paroxysmal atrial fibrillation) I48.0 Encounter for monitoring flecainide therapy Z51.81; Z79.899 Atherosclerotic cardiovascular disease I25.10 ELLEN (obstructive sleep apnea) G47.33 CPT Codes EKG - CPT: [id number]-[id number], Complete ([id number])
[2024-07-30 13:32] VITALS: BP 130/62; PULSE 66; BMI 37.4
== END 2024-07-30 14:00 | disposition home or self-care (01) ==
PROVIDERS: PCP Family Medicine; Visit Provider Internal Medicine
DX: I48.0 Paroxysmal atrial fibrillation (principal); Z51.81 Encounter for therapeutic drug level monitoring; Z79.899 Other long term (current) drug therapy; I25.10 Atherosclerotic heart disease of native coronary artery without angina pectoris; G47.33 Obstructive sleep apnea (adult) (pediatric)
CPT/HCPCS: 93010; 99214

== ENCOUNTER → 2024-07-30 13:28 | Outpatient (BNVA) | payer OTHER, SELFPAY | PROVIDERS: PCP Family Medicine; Visit Provider Internal Medicine | DX: I48.0 Paroxysmal atrial fibrillation (principal); I25.10 Atherosclerotic heart disease of native coronary artery without angina pectoris; G47.33 Obstructive sleep apnea (adult) (pediatric); Z51.81 Encounter for therapeutic drug level monitoring; Z79.899 Other long term (current) drug therapy | CPT/HCPCS: 93005; 99212 ==

== ENCOUNTER 2024-08-25 08:43 | Outpatient (REF) | payer OTHER, SELFPAY | END 2024-08-25 08:44 | disposition home or self-care (01) | LOC: HO.HOSX 08:43 | PROVIDERS: Visit Provider Orthopaedic Surgery | DX: Z13.89 Encounter for screening for other disorder (principal) ==

== ENCOUNTER 2024-09-11 09:54 | Outpatient (AMB) | payer OTHER, SELFPAY ==
[2024-09-11 10:09] VITALS: BP 122/72; PULSE 65; O2SAT 98; BMI 37.1
--- NOTE | 2024-09-11 10:09 | A.OFFVIS_ITS ---
Vital Signs 09/11/24 10:09 Height 5 ft 6 in Weight 230 lb BMI 37.1 BP 122/72 Blood Pressure Location Lt brachial Position Sitting Pulse 65 Pulse Source Pulse Oximeter Pulse Oximetry (%) 98 Oxygen Delivery Method Room Air Intake Visit Reasons: Obstructive sleep apnea Intake Note: pt is here for follow up and states he was coughing but better today, no cpap, returned. 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: No Allergies No Known Allergies [No Known Allergies*] Allergy (Verified 09/11/24 10:12) Medication List - Last Reconciled 09/11/24 by Kathleen Moreau MD acetaminophen 1,000 mg PO Q6H PRN apixaban (Eliquis) 5 mg PO BID atorvastatin (Lipitor) 40 mg PO BEDTIME benzonatate 100 mg PO BID-TID PRN diltiazem HCl CD 240 mg PO DAILY flecainide 100 mg PO BID flecainide 100 mg PO Q12H lorazepam (Ativan) 1 mg PO BID lorazepam 0.5 mg PO BID metoprolol tartrate 25 mg PO BID oxycodone 5 mg PO Q6H PRN 7 days walker Folding Front wheeled walker [Wheelchair w foot rests As directed] zolpidem 10 mg PO BEDTIME PRN Do you need a note to return to daycare/school/sports/work: No HPI HPI Obstructive sleep apnea: Details: This 68 years old gentleman, comes for follow-up after 6 months for his breathing and also for obstructive sleep apnea. He has been moderately overweight. In 2021 he had polysomnogram study, which showed mild obstructive sleep apnea, and mild nocturnal hypoxemia. He opted to treat with conservative measures including weight reduction and sleeping in lateral position. He has not used CPAP. He was doing okay , sleeping well mostly in the right lateral position. Now he had a knee surgery recently and due to inactivity put on about 20 lb of weight. But even then he still can sleep okay, and is not bothered by excessive snoring or sleep apneas. His breathing is good, he had pulmonary function test in 2022 and which was essentially normal. He does not smoke. A few weeks ago he suffered from common cold and had some residual cough which is almost gone. [facility] Medical History Atherosclerotic cardiovascular disease CAD (coronary artery disease) Nocturnal hypoxemia History of depression On anticoagulant therapy On beta adrian at home ELLEN (obstructive sleep apnea) Obesity (BMI 30-39.9) Essential hypertension PAF (paroxysmal atrial fibrillation) Atrial fibrillation Surgical History Hx of rotator cuff surgery Hx of colonoscopy Hx of surgical procedure History of elbow surgery History of left knee surgery History of cardioversion Family History Mother No problems noted. Father No problems noted. Social History Household Members: None Housing: House Are you a primary lead caregiver to a significant other at home: No Do you presently have visiting nurse or other home services: No Alcohol intake: never Patient Tobacco Use Status: Former Tobacco user Tobacco use type: Cigarette Years Smoked: 1 Advance Directives Date on File: 04/07/21 service: No Current occupational status: retired 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 Review of Systems Const All systems reviewed & are unremarkable except as noted in HPI and below Eyes Reports no additional complaints ENT Reports nasal congestion (Mild off and on) Card Denies chest pain, Denies irregular heart rhythm and Denies leg edema Resp Reports as per HPI Reports nocturia Musc Reports back pain (Mild off and on) Skin/Breast Reports system reviewed and no additional complaints, except as documented Neuro Reports no additional complaints Psych Reports no additional complaints Endo Reports no additional complaints Physical Exam Vital Signs: Last Vital Signs Pulse 65 09/11/24 10:09 BP 122/72 09/11/24 10:09 Pulse Ox 98 09/11/24 10:09 Oxygen Delivery Method Room Air 09/11/24 10:09 BMI result Body Mass Index 37.1 Const General: comfortable, no acute distress, alert and awake Orientation/consciousness: patient oriented x3 HEENT Head: Yes normal to inspection General nose exam: No nasal polyps present and No nasal discharge present Face and sinus: Yes sinuses nontender Mouth: oropharynx abnormals (Oropharynx moderately narrow, Mallampati scale 3) Teeth and gingiva: dentures Throat: Yes posterior oropharynx normal Eyes General: appearance normal, both eyes and all related structures Neck Neck: Yes normal visual inspection, Yes no lymphadenopathy, Yes trachea midline and Yes no JVD Thyroid: Thyroid normal Chest Chest palpation & inspection: normal inspection of the chest, normal palpation of entire chest wall and no tenderness Resp Other: PERCUSSION NOTE IS RESONANT BREATH SOUNDS ARE NORMAL AND EQUAL ON BOTH SIDES. HE DOES NOT HAVE ANY WHEEZES OR RHONCHI ON EITHER SIDE. Effort & Inspection: decreased respiratory effort Cardio Palpation: normal PMI Rate: regular rate Rhythm: regular rhythm Heart sounds: no gallops and no murmurs GI Palpation (GI): Soft to palpation, nontender, No hepatosplenomegaly present and no masses Auscultation: normal bowel sounds Back/Spine/Pelvis Thoracic/Lumbar Spine: thoracic and lumbar spine normal to inspection Skin General skin exam: no rashes or lesions noted Neuro General: patient oriented x3 and no focal motor deficits Cranial nerves: Yes CN's II-XII intact bilaterally Extrem General: Yes normal to inspection, Yes no clubbing, cyanosis or edema and Yes no calf tenderness Psych Speech and movement: Normal speech and movement present Assessment & Plan Assessment & Plan (1) Obesity (BMI 30-39.9): Comment: HE IS MODERATELY OBESE, HE HAS REGAINED SOME WEIGHT , ESPECIALLY AFTER RECENT RIGHT KNEE SURGERY.. Code(s): E66.9 - Obesity, unspecified Category: Medical Plan: I HAD A GOOD DISCUSSION WITH HIM AND TOLD HIM THAT HIS MAIN GOAL SHOULD BE TO LOSE WEIGHT. HE NEEDS TO LOSE WEIGHT DOWN TO ABOUT 200 LB. WHILE HE IS NOT ABLE TO DO MUCH EXERCISE HE HAS TO FOCUS MORE ON HIS DIET. (2) ELLEN (obstructive sleep apnea): Comment: HE DID HAVE MILD DEGREE OF OBSTRUCTIVE SLEEP APNEA WITH NOCTURNAL HYPOXEMIA. HE OPTED TO TREAT WITH CONSERVATIVE MEASURES AND TRIED TO LOSE WEIGHT AND ALSO HAS BEEN SLEEPING MOSTLY IN RIGHT LATERAL POSITION. SUBJECTIVELY HE IS NOT HAVING ANY SIGNIFICANT SNORING OR SLEEP APNEAS. Code(s): G47.33 - Obstructive sleep apnea (adult) (pediatric) Category: Medical Plan: I TOLD HIM THAT THE BEST APPROACH IS FOR HIM TO LOSE WEIGHT AND ALWAYS SLEEP IN LATERAL POSITION. HE CAN COME AND SEE ME IF HE STARTS HAVING ANY SYMPTOMS AT NIGHT. Coding Level of Care Code Est Pt Level 3 (02478) Diagnoses Obesity (BMI 30-39.9) E66.9 ELLEN (obstructive sleep apnea) G47.33
--- OUTSIDE RECORDS SUMMARY | 2024-09-11 12:59 | XMS_ITS | Encounter Summary ---
Author Organization [facility] Address [address] [place] [address] Care Team Providers Care Melter Helper Name Role Phone Physician, No Pcp Primary Care Provider Unavaila ble Reason for Visit * Reason Comments Cough Fever Encounter Details Date Type Department Care Team (Late st Contact Info) Description 08/21/2024 10:25 AM EST - 08/21/2024 12:52 PM EST Emergency [facility] Emergency [address] [place] [address] Viral upper respiratory tract infection (Primary Dx); Acute cough Discharge Disposition: Home or Self Care Social History Tobacco Use Types Packs/Day Years Used Date Smoking Tobacco: Never Assessed Sex and Gender Information Value Date Recorded Sex Assigned at Not on file Gender Identity Not on file Sexual Orientation Not on file Job Start Date Occupation Industry Not on file Not on file Not on file documented as of this encounter Last Filed Vital Signs Vital Sign Reading Time Taken Comments Blood Pressure 149/70 08/21/2024 9:33 AM EST Pulse 95 08/21/2024 9:33 AM EST Temperature 36.8 ??C (98.2 ??F) 08/21/2024 9:33 AM ES T Respiratory Rate 24 08/21/2024 9:33 AM EST Oxygen Saturation 97% 08/21/2024 9:33 AM EST Inhaled Oxygen Concentration - - Weight 102 kg (225 lb) 08/21/2024 9:33 AM EST Height 170.2 cm (5' 7 ) 08/21/2024 9:33 AM EST Body Mass Index 35.24 08/21/2024 9:33 AM EST documented in this encounter Functional Status Functional Status Response Date of Assess ment Are you deaf or do you have serious difficulty h earing? No 08/21/2024 Are you blind or do you have serious difficulty seeing, even when wearing glasses? No 08/21/2024 Do you have serious difficul ty walking or climbing stairs? No 08/21/2024 Do you have serious difficulty dressing or bathi ng? No 08/21/2024 Because of a physical, menta l, or emotional condition, do you have serious difficulty doing errands alone such as visiting the doctor? No 08/21/2024 Cognitive Status Response Date of Assessm ent Because of a physical, menta l, or emotional condition, do you have serious difficulty concentrating, remembering, or making decisions? (5 years old or older) No 08/21/2024 documented as of this encounter Discharge Instructions * Discharge Instructions* BELA Burgess - 08/21/2024 11:49 AM EST Patient instructed to use Tylenol as needed for body aches and force fluids, use humidifier in the bedroom overnight. Follow-up with PCP if not improving in the next week. * Attachments The following attachments cannot be sent through Care Everywhere. * URI (Upper Respiratory Infection) (Icelandic) documented in this encounter Discharge Disposition Disposition Code Departure Means Destination Comment s Home or Self Care documented in this encounter Progress Notes * Cori Fernandez RN - 08/21/2024 9:37 AM EST Patient c/o productive cough and sore throat times 3 days. Patient endorses chest pains with cough.Denies N/V/D. * Paula Gutierrez RN - 08/21/2024 9:26 AM EST Pt c/o cough congestion fever for a couple days * BELA Burgess - 08/21/2024 9:24 AM EST Emergency Medicine Note Patient Name: Donald Ornelas Initial Evaluation: 08/21/2024 : 1955 Patient's PCP: No primary care provider on file. Emergency Physician: BELA Burgess History of Present Illness Chief Complaint: Chief Complaint Patient presents with Cough Fever HPI: 68-year-old male with a history of atrial fibrillation and a recent right total knee replacement complains of congestion and cough for the last 3 days along with a sore throat. Patient denies any sick contacts, but states that other people he knows have had similar symptoms. He is on a blood thinner for A- fib and rate control medication. ROS: I have performed a ROS with the pertinent positives and negatives documented in the history ofpresent illness. He denies any chest pain, shortness of breath, abdominal pain, nausea or vomiting. Previous History History reviewed. No pertinent past medical history. History reviewed. No pertinent surgical history. No family history on file. has No Known Allergies. No current facility-administered medications on file prior to encounter. No current outpatient medications on file prior to encounter. Physical Exam ED Triage Vitals [08/21/24 0933] Temp Heart Rate Resp BP 36.8 ??C (98.2 ??F) 95 24 (!) 149/70 SpO2 Temp Source Heart Rate Source Patient Position 97 % Oral Monitor Sitting BP Location FiO2 (%) Right arm -- Physical Exam Constitutional General Exam awake, calm, cooperative, No apparent distress Skin Skin Exam warm, dry, No diaphoresis Eyes Eye Exam PERRLA, EOMI ENT ENT exam mucosa moist, throat is clear, no lymphadenopathy, TMs clear bilaterally Neck Neck Exam soft/supple, full range of motion, no JVD, no nuchal rigidity Respiratory Respiratory Exam clear to auscultation Cardiovascular Cardiovascular Exam regular rate and rhythm, no JVD Gastrointestinal Gastrointestinal Exam soft nontender, normal active bowel sounds, no hepatomegaly Musculoskeletal Musculoskeletal Exam no calf tenderness, no pedal edema Neurological Neurological Exam alert and oriented X3, no focal deficit Lymphatic Lymphatic Exam No: lymphadenopathy Psychiatric Psychiatric exam stable mood and affect Results Labs Reviewed RESPIRATORY VIRUS PANEL MOLECULAR STUDY - Abnormal Result Value Adenovirus Detection by PCR Not Detected Influenza A PCR Not Detected Influenza B PCR Not Detected Coronavirus 229E Not Detected Coronavirus HKU1 Not Detected Coronavirus OC43 Not Detected Coronavirus NL63 Not Detected Parainfluenza Virus 1 Detected (*) Parainfluenza Virus 2 Not Detected Parainfluenza Virus 3 Not Detected Parainfluenza Virus 4 Not Detected RSV PCR Not Detected Human Metapneumovirus A and B Not Detected Rhinovirus/Enterovirus Not Detected Bordetella pertussis Not Detected Bordetella parapertussis Not Detected Mycoplasma pneumo by PCR Not Detected Chlamydia pneumoniae Not Detected SARS COV-2 Not Detected Narrative: Testing was performed using the [employer] Respiratory Pathogen PCR Assay. All results must be correlated with the clinical findings. Results should not be used as the sole basis for diagnosis. False Negative results may occur from the presence of sequence variants in the region targeted by the assay or the presence of inhibitors. Results may be affected by concurrent antiviral/antimicrobial therapy or levels of organisms that are below the limit of detection. Abnormal Labs Reviewed RESPIRATORY VIRUS PANEL MOLECULAR STUDY - Abnormal; Notable for the following components: Result Value Parainfluenza Virus 1 Detected (*) All other components within normal limits Narrative: Testing was performed using the [employer] Respiratory Pathogen PCR Assay. All results must be correlated with the clinical findings. Results should not be used as the sole basis for diagnosis. False Negative results may occur from the presence of sequence variants in the region targeted by the assay or the presence of inhibitors. Results may be affected by concurrent antiviral/antimicrobial therapy or levels of organisms that are below the limit of detection. XR Chest 2 Views Final Result No evidence of active pulmonary disease. [id number] -------- FINAL REPORT -------- Dictated By: Dilip Luna Dictated Date: 08/21/2024 10:13 ET Assigned Physician: Dilip Luna Reviewed and Electronically Signed By: Dilip Luna Signed Date: 08/21/2024 10:13 ET Workstation ID: [id number] Transcribed By: Self Edit Transcribed Date: 08/21/2024 10:13 ET I have discussed the incidental/abnormal imaging and/or lab abnormalities with the patient and haveinstructed them the need for further evaluation and workup with their primary care doctor. I have provided the patient with a paper copy of the abnormality. The laboratory results, imaging results and other diagnostic exam results were reviewed in the EMR. EKG Interpretation Critical Care Time None ? Differential Diagnosis Upper respiratory infection Pneumonia Bronchitis COVID-19 Medical Decision Making Patient evaluated, noted to have likely viral upper respiratory infection, respiratory panel shows that patient has parainfluenza and will be treated conservatively with Tylenol as needed and instructed to use humidifier at bedtime Medications - No data to display Clinical Impressions as of 08/21/24 1149 Acute cough Viral upper respiratory tract infection Amount and/or Complexity of Data Reviewed External Data Reviewed: Encounters reviewed in Chart Review. Details: Labs: ordered. Decision-making details documented in ED Course. Radiology: ordered. Decision-making details documented in ED Course. ECG/medicine tests: ordered. Decision-making details documented in ED Course. Procedures Procedures Diagnosis 1. Viral upper respiratory tract infection 2. Acute cough Disposition Discharge ED Prescriptions None Physician Attestation BELA Burgess 08/21/24 1150 BELA Burgess 08/21/24 1150 documented in this encounter Plan of Treatment Not on file documented as of this encounter Procedures Procedure Name Priority Date/Time Associated Diagnosis Comments XR CHEST 2 VIEWS STAT 08/21/2024 10:1 0 AM EST RESPIRATORY VIRUS PANEL MOLECULAR STUDY STAT 08/21/2024 9:42 AM EST documented in this encounter Results * XR Chest 2 Views (08/21/2024 10:10 AM EST) Anatomical Region Laterality Modality Body Radiographic Layla ging 08/21/2024 10:1 3 AM EST Impressions 08/21/2024 10:13 AM EST No evidence of active pulmonary disease. [id number] -------- FINAL REPORT -------- Dictated By: Dilip Luna Dictated Date: 08/21/2024 10:13 ET Assigned Physician: Dilip Luna Reviewed and Electronically Signed By: Dilip Luna Signed Date: 08/21/2024 10:13 ET Workstation ID: [id number] Transcribed By: Self Edit Transcribed Date: 08/21/2024 10:13 ET Narrative 08/21/2024 10:13 AM EST INDICATION: Productive cough, chest pain for 2 days FINDINGS: Two views of the chest were obtained. There are no prior studies available for comparison. Lung srivastava are well inflated without infiltrates or effusions. Cardiomediastinal silhouette is normal in size and shape. Bony structures are within normal limits for the patient's age. Procedure Note Dilip Luna MD - 08/21/2024 INDICATION: Productive cough, chest pain for 2 days FINDINGS: Two views of the chest were obtained. There are no prior studiesavailable for comparison. Lung srivastava are well inflated without infiltrates or effusions. Cardiomediastinal silhouette is normal in size and shape. Bony structures are within normal limits for the patient's age. IMPRESSION: No evidence of active pulmonary disease. [id number] -------- FINAL REPORT -------- Dictated By: Dilip Luna Dictated Date: 08/21/2024 10:13 ET Assigned Physician: Dilip Luna Reviewed and Electronically Signed By: Dilip Luna Signed Date: 08/21/2024 10:13 ET Workstation ID: [id number] Transcribed By: Self Edit Transcribed Date: 08/21/2024 10:13 ET Al CRAMER IMG XR PROCEDURES * (ABNORMAL) Respiratory virus panel molecular study (08/21/2024 9:42 AM EST) Adenovirus Detection by PCR Not Detected Not Detected LAB MICROBIOLOGY METHOD 08/21/2024 11:41 AM [facility] Influenza A PCR Not Detected Not Detected LAB MICROBIOLOGY METHOD 08/21/2024 11:41 AM [facility] Influenza B PCR Not Detected Not Detected LAB MICROBIOLOGY METHOD 08/21/2024 11:41 AM [facility] Coronavirus 229E Not Detected Not Detected LAB MICROBIOLOGY METHOD 08/21/2024 11:41 AM [facility] Coronavirus HKU1 Not Detected Not Detected LAB MICROBIOLOGY METHOD 08/21/2024 11:41 AM [facility] Coronavirus OC43 Not Detected Not Detected LAB MICROBIOLOGY METHOD 08/21/2024 11:41 AM [facility] Coronavirus NL63 Not Detected Not Detected LAB MICROBIOLOGY METHOD 08/21/2024 11:41 AM [facility] Parainfluenza Virus 1 Detected(A ) Not Detected LAB MICROBIOLOGY METHOD 08/21/2024 11:41 AM [facility] Parainfluenza Virus 2 Not Detected Not Detected LAB MICROBIOLOGY METHOD 08/21/2024 11:41 AM [facility] Parainfluenza Virus 3 Not Detected Not Detected LAB MICROBIOLOGY METHOD 08/21/2024 11:41 AM [facility] Parainfluenza Virus 4 Not Detected Not Detected LAB MICROBIOLOGY METHOD 08/21/2024 11:41 AM [facility] RSV PCR Not Detected Not Detected LAB MICROBIOLOGY METHOD 08/21/2024 11:41 AM [facility] Human Metapneumovirus A and B Not Detected Not Detected LAB MICROBIOLOGY METHOD 08/21/2024 11:41 AM [facility] Rhinovirus/Entero virus Not Detected Not Detected LAB MICROBIOLOGY METHOD 08/21/2024 11:41 AM [facility] Bordetella pertussis Not Detected Not Detected LAB MICROBIOLOGY METHOD 08/21/2024 11:41 AM [facility] Bordetella parapertussis Not Detected Not Detected LAB MICROBIOLOGY METHOD 08/21/2024 11:41 AM [facility] Mycoplasma pneumo by PCR Not Detected Not Detected LAB MICROBIOLOGY METHOD 08/21/2024 11:41 AM [facility] Chlamydia pneumoniae Not Detected Not Detected LAB MICROBIOLOGY METHOD 08/21/2024 11:41 AM [facility] SARS COV-2 Not Detected Not Detected LAB MICROBIOLOGY METHOD 08/21/2024 11:41 AM [facility] Swab Both anterior nares / Unknown Non-blood Collection / Unknown 08/21/2024 9:42 AM EST 08/21/2024 10:32 AM [facility] - 08/21/2024 11:41 AM EST Testing was performed using the [employer] Respiratory Pathogen PCR Assay. All results must be correlated with the clinical findings. Results should not be used as the sole basis for diagnosis. False Negative results may occur from the presence of sequence variants in the region targeted by the assay or the presence of inhibitors. Results may be affected by concurrent antiviral/antimicrobial therapy or levels of organisms that are below the limit of detection. Minoo Shrestha David MEADE LAB MICROBIOLOGY - GENERAL ORDERABLES [facility] [address] [place] [address], documented in this encounter Visit Diagnoses Diagnosis Viral upper respiratory tract infection- Primary Acute upper respiratory infections of unspecified site Acute cough documented in this encounter Additional Health Concerns Infection Onset Date Last Indicated Resolved Time Respiratory Rule-Out 08/21/2024 08/21/2024 025 11:41 AM EST COVID-19 Rule-Out 08/21/2024 08/21/2024 08/21/2024 11:41 AM EST Parainfluenza Virus 08/21/2024 08/21/2024 documented as of this encounter Care Teams Melter Helper Relationship Specialty Start Date End Date Physician, No Pcp PCP - General 08/21/24 documented as of this encounter
--- OUTSIDE RECORDS SUMMARY | 2024-09-11 12:59 | XMS_ITS | Clinical Summary ---
Author Organization [facility] Address [address] [place] [address] Phone Care Team Providers Care Sheet Manufacturing Supervisor Name Role Phone Physician, No Pcp Primary Care Provider Unavaila ble Allergies No known active allergies Medications No known medications Active Problems No known active problems Encounters Date Type Department Care Team Description 08/21/2024 10:25 AM EST - 08/21/2024 12:52 PM EST Emergency [facility] Emergency [address] [place] [address] Viral upper respiratory tract infection (Primary Dx); Acute cough Discharge Disposition: Home or Self Care from Last 3 Months Social History Tobacco Use Types Packs/Day Years Used Date Smoking Tobacco: Never Assessed Sex and Gender Information Value Date Recorded Sex Assigned at Not on file Gender Identity Not on file Sexual Orientation Not on file Job Start Date Occupation Industry Not on file Not on file Not on file Obstetrics History Last Filed Vital Signs Vital Sign Reading [...] Mass Index 35.24 08/21/2024 9:33 AM EST Plan of Treatment Health Maintenance Due Date Last Done Comments Pneumococcal Vaccine: 65+ Years (2 of 2 - PCV) 01/31/2022 01/31/2021 Abdominal Aortic Aneurysm (AAA) Screen 09/06/2023 Cholesterol Screening (Lipid Panel) 09/06/2023 Colorectal Cancer Screening: Colonoscopy 09/06/2023 Depression Screening 09/06/2023 Falls Risk Assessment 09/06/2023 Hepatitis C Screening 09/06/2023 Social Influencers of Health Screening 09/06/2023 COVID-19 Vaccine (3 - season) 2024 12/29/2022, 06/09/2022 RSV Immunization Patients 60+ Years Old (1 - 1-dose 75+ series) 11/09/2030 DTaP,Tdap,and Td Vaccines (4 - Td or Tdap) 03/26/2033 03/26/2023, 10/08/2014, 08/13/2007 Zoster Vaccines Completed 03/13/2023, 12/12, 11/19/2015 Influenza Vaccine Completed 05/22/2024, , 04/28/2022, Additional history exists HIB Vaccines Aged Out No longer eligi ble based on patient's age to complete this topic HPV Vaccines Aged Out No longer eligi ble based on patient's age to complete this topic Hepatitis A Vaccines Aged Out No long er eligible based on patient's age to complete this topic Hepatitis B Vaccines Aged Out No long er eligible based on patient's age to complete this topic IPV Vaccines Aged Out No longer eligi ble based on patient's age to complete this topic MMR Vaccines Aged Out No longer eligi ble based on patient's age to complete this topic Meningococcal ACWY Vaccine Aged Out N o longer eligible based on patient's age to complete this topic RSV Immunization Patients Under 20 months Aged Out No longer eligible based on patient's age to complete this topic Varicella Vaccines Aged Out No longer eligible based on patient's age to complete this topic Procedures Procedure Name Priority Date/Time Associated Diagnosis Comments XR CHEST 2 VIEWS STAT 08/21/2024 10:1 0 AM EST RESPIRATORY VIRUS PANEL MOLECULAR STUDY STAT 08/21/2024 9:42 AM EST from Last 3 Months Results * XR Chest 2 Views (08/21/2024 10:10 AM EST) Anatomical Region Laterality Modality Body Radiographic Layla ging 08/21/2024 10:1 3 AM EST Impressions 08/21/2024 10:13 AM EST No evidence of active pulmonary disease. [id number] -------- FINAL REPORT -------- Dictated By: Dilip Luna Dictated Date: 08/21/2024 10:13 ET Assigned Physician: Dilip Luna Reviewed and Electronically Signed By: Dilip Luna Signed Date: 08/21/2024 10:13 ET Workstation ID: [id number] Transcribed By: Self Edit Transcribed Date: 08/21/2024 [...] IMPRESSION: No evidence of active pulmonary disease. [id number] -------- FINAL REPORT -------- Dictated By: Dilip Luna Dictated Date: 08/21/2024 10:13 ET Assigned Physician: Dilip Luna Reviewed and Electronically Signed By: Dilip Luna Signed Date: 08/21/2024 10:13 ET Workstation ID: [id number] Transcribed By: Self Edit Transcribed Date: 08/21/2024 10:13 ET Al CRAMER IMG XR PROCEDURES * (ABNORMAL) Respiratory virus panel molecular study (08/21/2024 9:42 AM EST) Adenovirus Detection by PCR Not Detected Not Detected LAB MICROBIOLOGY METHOD 08/21/2024 11:41 AM EST [facility] Influenza A PCR Not Detected Not Detected LAB MICROBIOLOGY METHOD 08/21/2024 11:[address] [facility] Influenza B PCR Not Detected Not Detected LAB MICROBIOLOGY METHOD 08/21/2024 11:[address] [facility] Coronavirus 229E Not Detected Not Detected LAB MICROBIOLOGY METHOD 08/21/2024 11:[address] [facility] Coronavirus HKU1 Not Detected Not Detected LAB MICROBIOLOGY METHOD 08/21/2024 11:[address] [facility] Coronavirus OC43 Not Detected Not Detected LAB MICROBIOLOGY METHOD 08/21/2024 11:[address] [facility] Coronavirus NL63 Not Detected Not Detected LAB MICROBIOLOGY METHOD 08/21/2024 11:[address] [facility] Parainfluenza Virus 1 Detected(A ) Not Detected LAB MICROBIOLOGY METHOD 08/21/2024 11:[address] [facility] Parainfluenza Virus 2 Not Detected Not Detected LAB MICROBIOLOGY METHOD 08/21/2024 11:[address] [facility] Parainfluenza Virus 3 Not Detected Not Detected LAB MICROBIOLOGY METHOD 08/21/2024 11:[address] [facility] Parainfluenza Virus 4 Not Detected Not Detected LAB MICROBIOLOGY METHOD 08/21/2024 11:[address] [facility] RSV PCR Not Detected Not Detected LAB MICROBIOLOGY METHOD 08/21/2024 11:[address] [facility] Human Metapneumovirus A and B Not Detected Not Detected LAB MICROBIOLOGY METHOD 08/21/2024 11:[address] [facility] Rhinovirus/Entero virus Not Detected Not Detected LAB MICROBIOLOGY METHOD 08/21/2024 11:[address] [facility] Bordetella pertussis Not Detected Not Detected LAB MICROBIOLOGY METHOD 08/21/2024 11:[address] [facility] Bordetella parapertussis Not Detected Not Detected LAB MICROBIOLOGY METHOD 08/21/2024 11:41 AM EST [facility] Mycoplasma pneumo by PCR Not Detected Not Detected LAB MICROBIOLOGY METHOD 08/21/2024 11:41 AM EST [facility] Chlamydia pneumoniae Not Detected Not Detected LAB MICROBIOLOGY METHOD 08/21/2024 11:[address] [facility] SARS COV-2 Not Detected Not Detected LAB MICROBIOLOGY METHOD 08/21/2024 11:[address] [facility] Swab Both anterior nares / Unknown Non-blood Collection / Unknown 08/21/2024 9:42 AM EST 08/21/2024 10:32 AM EST [facility] - 08/21/2024 11:41 AM EST Testing was performed using the [employer] Respiratory Pathogen PCR Assay. All results must [...] are below the limit of detection. Minoo Hernandez DO LAB MICROBIOLOGY - GENERAL ORDERABLES [facility] [address] [place] [address], from Last 3 Months Additional Health Concerns Infection Onset Date Last Indicated Parainfluenza Virus 08/21/2024 08/21/2024 Care Teams Sheet Manufacturing Supervisor Relationship Specialty Start Date End Date Physician, No Pcp PCP - General 08/21/24
--- OUTSIDE RECORDS SUMMARY | 2024-09-11 12:59 | XMS_ITS | Patient Health Record ---
Author Organization [facility] Address [address] [place] [address] Care Team Providers Care Cafe Attendant Name Role Phone Denice Mckinley Primary Care Provider Claudio Lawson [phone] REASON FOR REFERRAL No Information MEDICATIONS Medication [...] adenomatous polyp of colon (Z86.010) Active confirmed 849058301 Problem Encounter for screening for malignant neoplasm of colon (Z12.11) Active confirmed [id number] PLAN OF TREATMENT Pending Test Test Name Order Date GI BIOPSY 06/23/2019 Future Test Test Name Order Date COLONOSCOPY 05/15/2019 Insurance Providers Payer Name Payer Address Payer Phone Subscriber Number Group Number Insured Name Patient Relationship to Insured Coverage Start Date Coverage End Date MEDICARE OF [place] [address] [place] [address] [id number] REINALDO SAENZ Self - patient is the insured MEDICAID OF [facility] [address] [place] [address] [id number] REINALDO SAENZ Self - patient is the insured MEDICAL (GENERAL) HISTORY Medical History History ICD Code Denies [place],DM,CVA,Lung disease,renal dise ase Colonoscopy in 09/2013 at [facility] with removal of a tubular adenoma-Dr. Kent ADD Surgical History Surgery Date(Month/Year) Elbow left Left knee surgery Biceps on the left
== END 2024-09-11 10:50 | disposition home or self-care (01) ==
PROVIDERS: PCP Family Medicine; Visit Provider Internal Medicine
DX: E66.9 Obesity, unspecified (principal); G47.33 Obstructive sleep apnea (adult) (pediatric)
CPT/HCPCS: 99213

== ENCOUNTER → 2024-09-11 09:54 | Outpatient (BNVA) | payer OTHER, SELFPAY | PROVIDERS: PCP Family Medicine; Visit Provider Internal Medicine | DX: G47.33 Obstructive sleep apnea (adult) (pediatric) (principal); E66.9 Obesity, unspecified; Z68.37 Body mass index [BMI] 37.0-37.9, adult; Z87.891 Personal history of nicotine dependence | CPT/HCPCS: 99212 ==

== ENCOUNTER 2024-09-12 08:25 | Outpatient (REF) | payer OTHER, SELFPAY ==
--- NOTE | ~2024-09-12 | FL_ITS ---
EXAMINATION: XR FLUOROSCOPY UPPER GI WITH AIR CLINICAL INFORMATION: Cough. Reflux. COMPARISON: None TECHNIQUE: Fluoroscopic air contrast upper GI examination was performed utilizing standard techniques with thin and thick barium and effervescent granules. Numerous spot images were obtained. FINDINGS: Lateral cine images of the oropharynx and hypopharynx demonstrate normal swallow mechanism with normal epiglottic inversion and soft palate elevation. There is trace laryngeal penetration with thick barium. No tracheal penetration, glottic or subglottic aspiration identified. No nasopharyngeal reflux present. Hypopharyngeal structures appear normal without evidence of mass or diverticulum. There was no significant cricopharyngeal achalasia. Dual and single contrast images of the esophagus demonstrate a normal caliber and contour. There is a granular appearance of the esophageal mucosa, suggestive of esophagitis. No evidence of stricture, mass, or ulcerations identified. Esophageal peristalsis was normal. A small type I hiatal hernia is present. A small amount gastroesophageal is observed up to the midesophagus. Dual contrast and single contrast images of the stomach demonstrated normal contour and mucosal pattern without evidence of mass, ulceration, or other abnormality. Contrast freely passed into the gastric antrum and duodenal bulb without delay. Single and air-contrast images of the duodenal bulb demonstrate no abnormality. The duodenal sweep has a normal appearance, course, and mucosal fold appearance. The imaged proximal jejunum has a normal fold pattern and caliber. FLUOROSCOPY TIME: 3 minutes 56 seconds Number of Spot Images: 6 Number of Cine: 13 DOSE AREA PRODUCT: [id number] uGy-m2 (microgray-meter squared) FL/FL barium swallow IMPRESSION: 1. Trace laryngeal penetration with thick barium. 2. Granular appearance of the esophageal mucosa, suggestive of esophagitis. 3. Small type I hiatal hernia with mild to moderate gastroesophageal reflux. This procedure was performed by Brown Bray PA-C, and supervised by Dr. Dupont Electronically signed by: Vahe Dupont MD 09/15/2024 05:06 PM [facility]
--- OUTSIDE RECORDS SUMMARY | 2024-09-12 08:35 | XMS_ITS | Encounter Summary ---
Author Organization [employer] Address [address] [place] [address] Care Team Providers Care Single Fold Machine Operator Name Role Phone Physician, No Pcp Primary Care Provider Unavaila ble Reason for Visit * Reason Comments Cough Fever Encounter Details Date Type Department Care Team (Late st Contact Info) Description 08/21/2024 10:25 AM EST - 08/21/2024 12:52 PM EST Emergency [facility] Emergency [address] [place] [address] Viral upper respiratory tract infection [...] Care Everywhere. * URI (Upper Respiratory Infection) (Syriac) documented in this encounter Discharge Disposition Disposition [...] Detected Narrative: Testing was performed using the [employer] Respiratory Pathogen PCR Assay. All results must [...] Result No evidence of active pulmonary disease. [id number] -------- FINAL REPORT -------- Dictated By: Dilip Luna Dictated Date: 08/21/2024 10:13 ET Assigned Physician: Dilip Luna Reviewed and Electronically Signed By: Dilip Luna Signed Date: 08/21/2024 10:13 ET Workstation ID: [id number] Transcribed By: Self Edit Transcribed Date: 08/21/2024 [...] EST No evidence of active pulmonary disease. [id number] -------- FINAL REPORT -------- Dictated By: Dilip Luna Dictated Date: 08/21/2024 10:13 ET Assigned Physician: Dilip Luna Reviewed and Electronically Signed By: Dilip Luna Signed Date: 08/21/2024 10:13 ET Workstation ID: [id number] Transcribed By: Self Edit Transcribed Date: 08/21/2024 [...] IMPRESSION: No evidence of active pulmonary disease. [id number] -------- FINAL REPORT -------- Dictated By: Dilip Luna Dictated Date: 08/21/2024 10:13 ET Assigned Physician: Dilip Luna Reviewed and Electronically Signed By: Dilip Luna Signed Date: 08/21/2024 10:13 ET Workstation ID: [id number] Transcribed By: Self Edit Transcribed Date: 08/21/2024 10:13 ET Al CRAMER IMG XR PROCEDURES * (ABNORMAL) Respiratory virus panel molecular study (08/21/2024 9:42 AM EST) Adenovirus Detection by PCR Not Detected Not Detected LAB MICROBIOLOGY METHOD 08/21/2024 11:41 AM [facility] Influenza A PCR Not Detected Not Detected LAB MICROBIOLOGY METHOD 08/21/2024 11:41 AM [facility] Influenza B PCR Not Detected Not Detected LAB MICROBIOLOGY METHOD 08/21/2024 11:41 AM [facility] Coronavirus 229E Not Detected Not Detected LAB MICROBIOLOGY METHOD 08/21/2024 11:41 AM [facility] Coronavirus HKU1 Not Detected Not Detected LAB MICROBIOLOGY METHOD 08/21/2024 11:41 AM [facility] Coronavirus OC43 Not Detected Not Detected LAB MICROBIOLOGY METHOD 08/21/2024 11:41 AM [facility] Coronavirus NL63 Not Detected Not Detected LAB MICROBIOLOGY METHOD 08/21/2024 11:41 AM [facility] Parainfluenza Virus 1 Detected(A ) Not Detected LAB MICROBIOLOGY METHOD 08/21/2024 11:41 AM [facility] Parainfluenza Virus 2 Not Detected Not Detected LAB MICROBIOLOGY METHOD 08/21/2024 11:41 AM [facility] Parainfluenza Virus 3 Not Detected Not Detected LAB MICROBIOLOGY METHOD 08/21/2024 11:41 AM [facility] Parainfluenza Virus 4 Not Detected Not Detected LAB MICROBIOLOGY METHOD 08/21/2024 11:41 AM [facility] RSV PCR Not Detected Not Detected LAB MICROBIOLOGY METHOD 08/21/2024 11:41 AM [facility] Human Metapneumovirus A and B Not Detected Not Detected LAB MICROBIOLOGY METHOD 08/21/2024 11:41 AM [facility] Rhinovirus/Entero virus Not Detected Not Detected LAB MICROBIOLOGY METHOD 08/21/2024 11:41 AM [facility] Bordetella pertussis Not Detected Not Detected LAB MICROBIOLOGY METHOD 08/21/2024 11:41 AM [facility] Bordetella parapertussis Not Detected Not Detected LAB MICROBIOLOGY METHOD 08/21/2024 11:41 AM [facility] Mycoplasma pneumo by PCR Not Detected Not Detected LAB MICROBIOLOGY METHOD 08/21/2024 11:41 AM [facility] Chlamydia pneumoniae Not Detected Not Detected LAB MICROBIOLOGY METHOD 08/21/2024 11:41 AM [facility] SARS COV-2 Not Detected Not Detected LAB MICROBIOLOGY METHOD 08/21/2024 11:41 AM [facility] Swab Both anterior nares / Unknown Non-blood Collection / Unknown 08/21/2024 9:42 AM EST 08/21/2024 10:32 AM [facility] - 08/21/2024 11:41 AM EST Testing was performed using the [employer] Respiratory Pathogen PCR Assay. All results must [...] David MEADE LAB MICROBIOLOGY - GENERAL ORDERABLES [facility] [address] [place] [address], documented in this encounter Visit Diagnoses Diagnosis Viral upper respiratory tract infection- Primary Acute upper respiratory infections of unspecified site Acute cough documented in this encounter Additional Health Concerns Infection Onset Date Last Indicated Resolved Time Respiratory Rule-Out 08/21/2024 08/21/2024 025 11:41 AM EST COVID-19 Rule-Out 08/21/2024 08/21/2024 08/21/2024 11:41 AM EST Parainfluenza Virus 08/21/2024 08/21/2024 documented as of this encounter Care Teams Single Fold Machine Operator Relationship Specialty Start Date End Date Physician, No Pcp PCP - General 08/21/24 documented as of this encounter
--- OUTSIDE RECORDS SUMMARY | 2024-09-12 08:35 | XMS_ITS | Clinical Summary ---
Author Organization [facility] Address [address] [place] [address] Phone Care Team Providers Care Curator Name Role Phone Physician, No Pcp Primary Care Provider Unavaila ble Allergies No known active allergies Medications No known medications Active Problems No known active problems Encounters Date Type Department Care Team Description 08/21/2024 10:25 AM EST - 08/21/2024 12:52 PM EST Emergency [facility] Emergency [address] [place] [address] Viral upper respiratory tract infection [...] EST No evidence of active pulmonary disease. [id number] -------- FINAL REPORT -------- Dictated By: Dilip Luna Dictated Date: 08/21/2024 10:13 ET Assigned Physician: Dilip Luna Reviewed and Electronically Signed By: Dilip Luna Signed Date: 08/21/2024 10:13 ET Workstation ID: [id number] Transcribed By: Self Edit Transcribed Date: 08/21/2024 [...] IMPRESSION: No evidence of active pulmonary disease. [id number] -------- FINAL REPORT -------- Dictated By: Dilip Luna Dictated Date: 08/21/2024 10:13 ET Assigned Physician: Dilip Luna Reviewed and Electronically Signed By: Dilip Luna Signed Date: 08/21/2024 10:13 ET Workstation ID: [id number] Transcribed By: Self Edit Transcribed Date: 08/21/2024 10:13 ET Al CRAMER IMG XR PROCEDURES * (ABNORMAL) Respiratory virus panel molecular study (08/21/2024 9:42 AM EST) Adenovirus Detection by PCR Not Detected Not Detected LAB MICROBIOLOGY METHOD 08/21/2024 11:41 AM EST [facility] Influenza A PCR Not Detected [...] LAB MICROBIOLOGY METHOD 08/21/2024 11:41 AM EST [facility] Mycoplasma pneumo by PCR Not Detected Not Detected LAB MICROBIOLOGY METHOD 08/21/2024 11:41 AM EST [facility] Chlamydia pneumoniae Not Detected Not Detected LAB MICROBIOLOGY METHOD 08/21/2024 11:41 AM [facility] SARS COV-2 Not Detected Not Detected LAB MICROBIOLOGY METHOD 08/21/2024 11:41 AM [facility] Swab Both anterior nares / Unknown Non-blood Collection / Unknown 08/21/2024 9:42 AM EST 08/21/2024 10:32 AM EST [facility] - 08/21/2024 11:41 AM EST Testing was performed using the [employer] Respiratory Pathogen PCR Assay. All results must [...] Hernandez DO LAB MICROBIOLOGY - GENERAL ORDERABLES [facility] [address] [place] [address], from Last 3 Months Additional Health Concerns Infection Onset Date Last Indicated Parainfluenza Virus 08/21/2024 08/21/2024 Care Teams Curator Relationship Specialty Start Date End Date Physician, No Pcp PCP - General 08/21/24
== END 2024-09-12 08:26 | disposition home or self-care (01) ==
LOC: HO.XRAY 08:25
PROVIDERS: PCP Family Medicine; Visit Provider Internal Medicine
DX: R13.10 Dysphagia, unspecified (principal); R06.6 Hiccough
CPT/HCPCS: 74220

== ENCOUNTER → 2024-09-12 08:30 | Outpatient (BNV) | payer OTHER, SELFPAY | PROVIDERS: PCP Family Medicine; Visit Provider Physician Assistant Surgical | DX: K21.9 Gastro-esophageal reflux disease without esophagitis (principal); K44.9 Diaphragmatic hernia without obstruction or gangrene | CPT/HCPCS: 74246; 74248 ==

== ENCOUNTER → 2024-09-17 09:00 | Outpatient (BNV) | payer OTHER, SELFPAY | PROVIDERS: PCP Family Medicine; Visit Provider Internal Medicine Cardiovascular Disease | DX: I51.7 Cardiomegaly (principal); I42.8 Other cardiomyopathies | CPT/HCPCS: 93306 ==

== ENCOUNTER 2024-10-16 08:42 | Outpatient (AMB) | payer OTHER, SELFPAY ==
--- NOTE | 2024-10-16 08:46 | MHC.OFFVIS ---
Vital Signs 10/16/24 08:47 Height 5 ft 6 in Weight 233 lb 3.985 oz BMI 37.6 BP 122/70 Blood Pressure Location Lt brachial Position Sitting Pulse 64 Pulse Source Monitor Intake Visit Reasons: f/up echo Ios Programmer Required: No Allergies No Known Allergies [No Known Allergies*] Allergy (Verified 10/16/24 08:48) Medication List - Last Reconciled 10/16/24 by Kaitlin Christianson NP-C acetaminophen 1,000 mg PO Q6H PRN apixaban (Eliquis) 5 mg PO BID atorvastatin (Lipitor) 40 mg PO BEDTIME diltiazem HCl CD 240 mg PO DAILY flecainide 100 mg PO Q12H lorazepam (Ativan) 1 mg PO BID lorazepam 0.5 mg PO BID metoprolol tartrate 25 mg PO BID walker Folding Front wheeled walker [Wheelchair w foot rests As directed] zolpidem 10 mg PO BEDTIME PRN HPI HPI f/up echo: Details: Donald is a 68-year-old male with past medical history of obesity, hypertension, mild obstructive sleep apnea, mild nonobstructive CAD, paroxysmal atrial fibrillation who presents for follow-up. Today he reports that he underwent a right total knee replacement 3 months ago and he continues to recover from that. He had no known cardiac complications. He denies having chest discomfort at rest or during activity. No concerning shortness of breath, PND, orthopnea. He has some mild swelling in the right ankle, none on the left. No heart palpitations, lightheadedness, presyncope, syncope. He has been trying to increase his physical activity, walking. Compliant with his medications. No bleeding issues reported. [facility] Medical History (Reviewed 10/16/24 @ 09:40 by Kaitlin Christianson, ORGANIZATIONAL EFFECTIVENESS CONSULTANT-C) Atherosclerotic cardiovascular disease CAD (coronary artery disease) Nocturnal hypoxemia History of depression On anticoagulant therapy On beta adrian at home ELLEN (obstructive sleep apnea) Obesity (BMI 30-39.9) Essential hypertension PAF (paroxysmal atrial fibrillation) Atrial fibrillation Surgical History (Reviewed 10/16/24 @ 09:40 by Kaitlin Christianson, ORGANIZATIONAL EFFECTIVENESS CONSULTANT-C) Hx of rotator cuff surgery Hx of colonoscopy Hx of surgical procedure History of elbow surgery History of left knee surgery History of cardioversion Family History Mother No problems noted. Father No problems noted. Social History Household Members: None Housing: House Are you a primary rental boats caretaker to a significant other at home: No Do you presently have visiting nurse or other home services: No Alcohol intake: never Patient Tobacco Use Status: Former Tobacco user Tobacco use type: Cigarette Years Smoked: 1 Advance Directives Date on File: 04/07/21 service: No Current occupational status: retired 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 Review of Systems Const All systems reviewed & are unremarkable except as noted in HPI and below ENT Denies dizziness Card Denies chest pain, Denies chest pain at rest, Denies chest pain with activity, Denies rapid heart rate, Denies pedal edema, Denies edema, Denies leg edema, Denies lightheadedness, Denies palpitations, Denies dyspnea, Denies dyspnea on exertion and Denies orthopnea Resp Denies cough, Denies dyspnea and Denies dyspnea on exertion GI Denies hematochezia and Denies change in stool character Musc Details: knee replacement 3 mo ago - still recovering Denies abnormal gait, Denies limited range of motion, Denies muscle cramps, Denies muscle weakness, Denies numbness, Denies radiating pain into limb, Denies stiffness and Denies tingling Neuro Denies abnormal gait, Denies dizziness, Denies numbness and Denies tingling Endo Denies palpitations Physical Exam Vital Signs: Last Vital Signs Pulse 64 10/16/24 08:47 BP 122/70 10/16/24 08:47 BMI result Body Mass Index 37.6 Const General: cooperative, healthy appearing, comfortable and no acute distress Orientation/consciousness: patient oriented x3 Neck Neck: Yes normal visual inspection and Yes no JVD Resp Effort & Inspection: normal respiratory effort Auscultation: clear to auscultation bilaterally, no rales, no rhonchi and no wheezes Cardio Rate: regular rate Rhythm: regular rhythm Heart sounds: S1 normal heart sound present, S2 normal heart sound present, no murmurs and no rubs Neuro General: patient oriented x3 Extrem Other: mild ankle swelling on right - recent right TKR General: Yes normal to inspection Psych Appearance: grossly normal Mental Status: mental status grossly normal Speech and movement: Normal speech and movement present Office Procedures EKG Details: Today, read by me, normal sinus rhythm, rate 64, QTc 416ms [id number], Complete Assessment & Plan Assessment & Plan (1) PAF (paroxysmal atrial fibrillation): Code(s): I48.0 - Paroxysmal atrial fibrillation Category: Medical Plan: History of paroxysmal atrial fibrillation which is currently suppressed with flecainide use. He is also on metoprolol and diltiazem for heart rate control. He is on Eliquis for anticoagulation which he is tolerating well. Labs 06/07/2024 showed creatinine 0.83, hematocrit 33.8. Last echo 09/17/2024 showed EF 55-60%, no valve abnormalities, left atrium mildly dilated, right atrium likely dilated. EKG done today shows normal sinus rhythm, rate 64, QTC 416 milliseconds. No med changes made. Continue flecainide, metoprolol, diltiazem and Eliquis. Cardiology follow-up 6 months, sooner if needed. (2) On anticoagulant therapy: Comment: Apixaban Code(s): Z79.01 - assisted (current) use of anticoagulants Category: Medical (3) CAD (coronary artery disease): Comment: CTA of coronary 01/31/2024, proximal LAD mild stenosis, 25-49%, proximal circumflex minimal stenosis 1-24% Code(s): I25.10 - Atherosclerotic heart disease of [place] coronary artery without angina pectoris Category: Medical Plan: CTA of the coronary arteries done 01/31/2024 shows mild nonobstructive coronary artery disease. EKG done today nonischemic. He is not on aspirin as he is on Eliquis. He is on atorvastatin with ideal LDL goal less than 70. He is due for a repeat fasting lipid profile which was ordered and patient informed. He is on metoprolol. Signs and symptoms of angina reviewed. Emergency care if ever needed for symptoms. (4) Essential hypertension: Code(s): I10 - Essential (primary) hypertension Category: Medical Plan: Well controlled at this time. No med changes made. (5) ELLEN (obstructive sleep apnea): Code(s): G47.33 - Obstructive sleep apnea (adult) (pediatric) Category: Medical Plan: Mild sleep apnea, managed conservatively. (6) Preoperative cardiovascular examination: Code(s): Z01.810 - Encounter for preprocedural cardiovascular examination Category: Medical Plan: Preop for upper and lower endoscopy, no date yet. He can proceed with low cardiac risk. Eliquis can be held 2-3 days prior to the procedure and restart as soon as cleared by GI to do so. Call/consult Cardiology if needed. Plan Time spent on chart review, documentation, interview and assessment Coding Level of Care Code Est Pt Level 4 (78128) Complex EM visit Add On G2211 Diagnoses PAF (paroxysmal atrial fibrillation) I48.0 On anticoagulant therapy Z79.01 CAD (coronary artery disease) I25.10 Essential hypertension I10 ELLEN (obstructive sleep apnea) G47.33 Preoperative cardiovascular examination Z01.810 CPT Codes EKG - CPT: 74391-[id number], Complete ([id number]) Time Spent (min) 30
[2024-10-16 08:47] VITALS: BP 122/70; PULSE 64; BMI 37.6
--- OUTSIDE RECORDS SUMMARY | 2024-10-16 09:15 | XMS_ITS | Clinical Summary ---
Author Organization [facility] Address [address] [place] [address] Phone Care Team Providers Care Compensation Manager Name Role Phone Physician, No Pcp Primary Care Provider Unavaila ble Allergies No known active allergies Medications No known medications Active Problems No known active problems Encounters Date Type Department Care Team Description 08/21/2024 10:25 AM EST - 08/21/2024 12:52 PM EST Emergency [facility] Emergency [address] [place] [address] Viral upper respiratory tract infection (Primary Dx); Acute cough Discharge Disposition: Home or Self Care from Last 3 Months Social History Tobacco Use Types Packs/Day Years Used Date Smoking Tobacco: Never Assessed Sex and Gender Information Value Date Recorded Sex Assigned at Not on file Legal Sex Male 8:07 PM EST Gender Identity Not on file Sexual Orientation Not on file Obstetrics History Last Filed [...] Due Date Last Done Comments Pneumococcal Vaccine: 50+ Years (2 of 2 - PCV) 01/31/2022 [...] patient's age to complete this topic Meningococcal B Vacine Aged Out No lo nger eligible based on patient's age to complete [...] EST No evidence of active pulmonary disease. 60655 -------- FINAL REPORT -------- Dictated By: Dilip Luna Dictated Date: 08/21/2024 10:13 ET Assigned Physician: Dilip Luna Reviewed and Electronically Signed By: Dilip Luna Signed Date: 08/21/2024 10:13 ET Workstation ID: [id number] Transcribed By: Self Edit Transcribed Date: 08/21/2024 [...] IMPRESSION: No evidence of active pulmonary disease. 30[address] -------- FINAL REPORT -------- Dictated By: Dilip Luna Dictated Date: 08/21/2024 10:13 ET Assigned Physician: Dilip Luna Reviewed and Electronically Signed By: Dilip Luna Signed Date: 08/21/2024 10:13 ET Workstation ID: [id number] Transcribed By: Self Edit Transcribed Date: 08/21/2024 10:13 ET Al CRAMER IMG XR PROCEDURES Final Resu lt * (ABNORMAL) Respiratory virus panel molecular study (08/21/2024 9:42 AM EST) Pathologist [facility] Adenovirus Detection by PCR Not Detected Not Detected LAB MICROBIOLOGY METHOD 08/21/2024 11:41 AM [facility] Influenza A PCR Not Detected Not Detected LAB MICROBIOLOGY METHOD 08/21/2024 11:41 AM [facility] Influenza B PCR Not Detected Not Detected LAB MICROBIOLOGY METHOD 08/21/2024 11:41 AM [facility] Coronavirus 229E Not Detected Not Detected LAB MICROBIOLOGY METHOD 08/21/2024 11:41 AM [facility] Coronavirus HKU1 Not Detected Not Detected LAB MICROBIOLOGY METHOD 08/21/2024 11:41 AM [facility] Coronavirus OC43 Not Detected Not Detected LAB MICROBIOLOGY METHOD 08/21/2024 11:41 AM [facility] Coronavirus NL63 Not Detected Not Detected LAB MICROBIOLOGY METHOD 08/21/2024 11:41 AM [facility] Parainfluenza Virus 1 Detected(A ) Not Detected LAB MICROBIOLOGY METHOD 08/21/2024 11:41 AM [facility] Parainfluenza Virus 2 Not Detected Not Detected LAB MICROBIOLOGY METHOD 08/21/2024 11:41 AM [facility] Parainfluenza Virus 3 Not Detected Not Detected LAB MICROBIOLOGY METHOD 08/21/2024 11:41 AM [facility] Parainfluenza Virus 4 Not Detected Not Detected LAB MICROBIOLOGY METHOD 08/21/2024 11:41 AM [facility] RSV PCR Not Detected Not Detected LAB MICROBIOLOGY METHOD 08/21/2024 11:41 AM [facility] Human Metapneumovirus A and B Not Detected Not Detected LAB MICROBIOLOGY METHOD 08/21/2024 11:41 AM [facility] Rhinovirus/Entero virus Not Detected Not Detected LAB MICROBIOLOGY METHOD 08/21/2024 11:41 AM [facility] Bordetella pertussis Not Detected Not Detected LAB MICROBIOLOGY METHOD 08/21/2024 11:41 AM [facility] Bordetella parapertussis Not Detected Not Detected LAB MICROBIOLOGY METHOD 08/21/2024 11:41 AM EST [facility] Mycoplasma pneumo by PCR Not Detected Not Detected LAB MICROBIOLOGY METHOD 08/21/2024 11:41 AM EST [facility] Chlamydia pneumoniae Not Detected Not Detected LAB MICROBIOLOGY METHOD 08/21/2024 11:41 AM EST [facility] SARS COV-2 Not Detected Not Detected LAB MICROBIOLOGY METHOD 08/21/2024 11:41 AM EST [facility] Swab Both anterior nares / Unknown Non-blood Collection / Unknown 08/21/2024 9:42 AM EST 08/21/2024 10:32 AM EST [facility] - 08/21/2024 11:41 AM EST Testing was performed using the Prim’Vision Respiratory Pathogen PCR Assay. All results must [...] detection. Minoo Hernandez DO LAB MICROBIOLOGY - GENERA L ORDERABLES Final Result [facility] [address] [place] [address], from Last 3 Months Additional Health Concerns Infection Onset Date Last Indicated Parainfluenza Virus 08/21/2024 08/21/2024 Insurance MEDICAID - [place] Care Teams Compensation Manager Relationship Specialty Start Date End Date Physician, No Pcp PCP - General 08/21/24
--- OUTSIDE RECORDS SUMMARY | 2024-10-16 09:16 | XMS_ITS | Patient Health Record ---
Author Organization [facility] Address [address] [place] [address] Care Team Providers Care Advertising Copywriter Name Role Phone Denice Mckinley Primary Care Provider Claudio Lawson [phone] Reason For Referral No Information Medications Medication SIG (Take, Route, Frequency, Duration) Notes [...] milk as needed Orally as needed Active Immunizations Vaccine Route Administration Date Status Comme nts Influenza Unknown 05/09/2019 Administered Social History Tobacco Use: Social History Observation Description Date Details (start date - stop date) Former Smoker NA - NA Tobacco Use/Smoking Question Answer Notes Patient is [...] Never (0 point) Points 3 Interpretation Negative Section Notes: Nonsmoker; several beers on the weekend Problems Problem Type SNOMED Code ICD Code Onset Dates Problem Status W/U Status Risk Notes Problem [id number] Encounter for screening for malignant neoplasm of colon (Z12.11) Active confirmed Problem 743446757 History of adenomatous polyp of colon (Z86.010) Active confirmed Plan Of Treatment Pending Test Test Name Order Date GI BIOPSY 06/23/2019 Future Test Test Name Order Date COLONOSCOPY 05/15/2019 Insurance Providers Payer Name Payer Address Payer Phone Subscriber Number Group Number Insured Name Patient Relationship to Insured Coverage Start Date Coverage End Date MEDICARE OF [place] [address] [place] [address] [id number] REINALDO SAENZ Self - patient is the insured MEDICAID OF [facility] [address] [place] [address] [id number] REINALDO SAENZ Self - patient is the insured Medical (General) History Medical History History ICD Code Denies [place],DM,CVA,Lung disease,renal dise ase Colonoscopy in 09/2013 at [facility] with removal of a tubular adenoma-Dr. Kent ADD Surgical History Surgery Date(Month/Year) Elbow left Left knee surgery Biceps on the left
== END 2024-10-16 09:14 | disposition home or self-care (01) ==
PROVIDERS: PCP Family Medicine; Visit Provider Nurse Practitioner Family
DX: I48.0 Paroxysmal atrial fibrillation (principal); Z79.01 Long term (current) use of anticoagulants; I25.10 Atherosclerotic heart disease of native coronary artery without angina pectoris; I10 Essential (primary) hypertension; G47.33 Obstructive sleep apnea (adult) (pediatric); Z01.810 Encounter for preprocedural cardiovascular examination
CPT/HCPCS: 93010; 99214; G2211

== ENCOUNTER → 2024-10-16 08:42 | Outpatient (BNVA) | payer OTHER, SELFPAY | PROVIDERS: PCP Family Medicine; Visit Provider Nurse Practitioner Family | DX: Z01.810 Encounter for preprocedural cardiovascular examination (principal); I10 Essential (primary) hypertension; I25.10 Atherosclerotic heart disease of native coronary artery without angina pectoris; I48.0 Paroxysmal atrial fibrillation; E66.9 Obesity, unspecified; G47.33 Obstructive sleep apnea (adult) (pediatric); Z79.01 Long term (current) use of anticoagulants; Z96.651 Presence of right artificial knee joint | CPT/HCPCS: 93005; 99212 ==

== ENCOUNTER 2024-10-30 11:22 | Outpatient (REF) | payer OTHER, SELFPAY ==
--- NOTE | ~2024-10-30 | XR_ITS ---
EXAMINATION: XR KNEE, RIGHT CLINICAL INFORMATION: Z98.890 - Other specified postprocedural states COMPARISON: June 03, 2024. TECHNIQUE: Three views of the right knee. FINDINGS: Metallic prosthesis with a femoral and acetabular component well-seated in the osseous structures with cement on the tibial component. No acute cortical disruption. No gross loosening. No gross malalignment. Sclerosis and the articular surface of the medial tibial plateau and asymmetric joint space narrowing involving the medial compartment, left knee. XR/XR knee RT 3V IMPRESSION: Status post total right knee arthroplasty, without fracture or gross loosening. Medial compartment osteoarthrosis, mild to moderate, left knee.. Electronically signed by: Gaston Muniz MD 11/03/2024 08:30 AM EDT
== END 2024-10-30 11:23 | disposition home or self-care (01) ==
LOC: HO.HOSX 11:22
PROVIDERS: Visit Provider Orthopaedic Surgery
DX: Z96.651 Presence of right artificial knee joint (principal); Z47.1 Aftercare following joint replacement surgery
CPT/HCPCS: 73562; 99212

== ENCOUNTER 2024-10-30 13:59 | Outpatient (AMB) | payer OTHER, SELFPAY ==
[2024-10-30 14:33] VITALS: BMI 37.6
--- NOTE | 2024-10-30 14:33 | MHC.OFFVIS ---
Vital Signs 10/30/24 14:33 Height 5 ft 6 in Weight 233 lb BMI 37.6 Intake Visit Reasons: OV- Right TKA 06/03/24 f/u Intake Note: Donald is a 68 year old male who presents today for a post operative appointment s/p Right Total Knee Arthroplasty on 06/03/24. States he continues to have limited ROM and swelling. Allergies No Known Allergies [No Known Allergies*] Allergy (Verified 10/30/24 14:43) HPI HPI OV- Right TKA 06/03/24 f/u: Details: 5 mo s/p Right TKA. Doing ok with persistent stiffness in flexion. Pain minimal PFSH Medical History Atherosclerotic cardiovascular disease CAD (coronary artery disease) Nocturnal hypoxemia History of depression On anticoagulant therapy On beta adrian at home ELLEN (obstructive sleep apnea) Obesity (BMI 30-39.9) Essential hypertension PAF (paroxysmal atrial fibrillation) Atrial fibrillation Surgical History Hx of rotator cuff surgery Hx of colonoscopy Hx of surgical procedure History of elbow surgery History of left knee surgery History of cardioversion Family History Mother No problems noted. Father No problems noted. Social History Household Members: None Housing: House Are you a primary inspector health care facilities to a significant other at home: No Do you presently have visiting nurse or other home services: No Alcohol intake: never Patient Tobacco Use Status: Former Tobacco user Tobacco use type: Cigarette Years Smoked: 1 Advance Directives Date on File: 04/07/21 service: No Current occupational status: retired 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 Physical Exam Vital Signs: BMI result Body Mass Index 37.6 Extrem Other: 0-105 inc c/d/i Results Reviewed Results Reviewed: I personally reviewed relevant radiographs. RIght total knee arthroplasty in expected post operative position with no hardware complications or evidence of loosening Assessment & Plan Assessment & Plan (1) Status post total right knee replacement: Code(s): Z96.651 - Presence of right artificial knee joint Category: Surgical Plan: Hasn't been doing PT. Needs to work on Flexion. Stiffness unlikely to improve. Feels overwhelmed with health conserns. Is being seen by cardiology. Orders: Orders XR knee LT 1V Today M25.569 - Pain in unspecified knee Coding Level of Care Code Est Pt Level 3 (57920) Diagnoses Status post total right knee replacement Z96.651
== END 2024-10-30 14:53 | disposition home or self-care (01) ==
LOC: HO.HOS 14:00
PROVIDERS: PCP Family Medicine; Visit Provider Orthopaedic Surgery
DX: Z47.1 Aftercare following joint replacement surgery (principal); Z96.651 Presence of right artificial knee joint
CPT/HCPCS: 99213

== ENCOUNTER → 2024-10-30 14:19 | Outpatient (BNV) | payer OTHER, SELFPAY | PROVIDERS: Visit Provider Radiology Diagnostic Radiology | DX: Z98.890 Other specified postprocedural states (principal) | CPT/HCPCS: 73562 ==

== ENCOUNTER 2024-12-18 06:11 | Day surgery (SDC) | payer OTHER, SELFPAY ==
--- OUTSIDE RECORDS SUMMARY | 2024-11-20 09:54 | XMS_ITS | Clinical Summary ---
Author Organization [facility] Address [address] [place] [address] Phone Care Team Providers Care Award Machine Operator Name Role Phone Physician, No Pcp Primary Care Provider Unavaila ble Allergies No known active allergies Medications No known medications Active Problems No known active problems Social History Tobacco Use Types Packs/Day Years [...] Influencers of Health Screening 09/06/2023 COVID-19 Vaccine ( season) 2024 12/29/2022, 06/09/2022 RSV Immunization Adult Patients (1 - 1-dose 75+ series) 11/09/2030 DTaP,Tdap,and [...] age to complete this topic Meningococcal B Vaccine Aged Out No l onger eligible based on patient's age to complete this topic RSV Immunization Patients Under 20 months Aged Out No longer eligible based on patient's age to complete this topic Varicella Vaccines Aged Out No longer eligible based on patient's age to complete this topic Additional Health Concerns Infection Onset Date Last Indicated Parainfluenza Virus 08/21/2024 08/21/2024 Insurance #[id number] [place] [address] MEDICAID - [place] [facility] Member Subscriber Plan / Payer ( fective 2023-Present) Name:Donald Ornelas Relation to Subscriber:Self Name:Donald Ornelas Payer ID:[id number] Group ID:[id number] Type:Not on file Address: [address] [place] [address] [employer] MEDICARE Member Subscriber Plan / Payer ( fective 2023-) Name:Donald Ornelas Relation to Subscriber:Self Name:Donald Ornelas Payer ID:[id number] Group ID:Not on file Type:Not on file Address: [address] [place] [address] Care Teams Award Machine Operator Relationship Specialty Start Date End Date Physician, No Pcp PCP - General 08/21/24
[2024-12-16 09:07] VITALS: BMI 37.6
--- NOTE | 2024-12-17 08:32 | P.CONAN_ITS ---
Documented by User: Chloe Nielsen NP 12/17/24 08:35 HPI - Anesthesia Eval Consult details Narrative: 69yo M for Upper Endoscopy and Colonoscopy Optimized for endos per [facility]. Follows for mild, nonobstructive CAD, PAF (eliquis) PMFSH Active Problems Active Problems: All Active Problems Dysphagia (Acute) Status post total right knee replacement (Acute) Family history of colon cancer in father (Acute) History of adenomatous polyp of colon (Acute) Precordial chest pain (Acute) COVID-19 (Acute) Tendinitis of left hip (Acute) Osteoarthritis of right knee (Acute) Preoperative cardiovascular examination (Acute) Contusion of right knee (Acute) Rotator cuff tear, left (Acute) Encounter for monitoring flecainide therapy (Acute) Atherosclerotic cardiovascular disease (Acute) CAD (coronary artery disease) (Acute) On anticoagulant therapy (Acute) Nocturnal hypoxemia (Acute) ELLEN (obstructive sleep apnea) (Acute) Obesity (BMI 30-39.9) (Acute) Essential hypertension (Acute) PAF (paroxysmal atrial fibrillation) (Acute) Past Medical History Medical History Atherosclerotic cardiovascular disease CAD (coronary artery disease) Nocturnal hypoxemia History of depression On anticoagulant therapy On beta adrian at home ELLEN (obstructive sleep apnea) Obesity (BMI 30-39.9) Essential hypertension PAF (paroxysmal atrial fibrillation) Atrial fibrillation Family History Family History Mother No problems noted. Father No problems noted. Family history of problems with anesthesia: No Surgical History Surgical History History of total right knee replacement Hx of rotator cuff surgery Hx of colonoscopy Hx of surgical procedure History of elbow surgery History of left knee surgery History of cardioversion History of Problems with Anesthesia: No Social History Social History Household Members: None Housing: House Are you a primary daycare worker to a significant other at home: No Do you presently have visiting nurse or other home services: No Alcohol intake: never Patient Tobacco Use Status: Former Tobacco user Tobacco use type: Cigarette Years Smoked: 1 Use of substances other than those prescribed or required for medical reasons: No Advance Directives: No Advance Directives Information Provided: Yes Advance Directives Date on File: 04/07/21 service: No Current occupational status: retired 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 Meds Allergies Allergy/AdvReac Type Severity Reaction Status Date / Time No Known Allergies Allergy Verified 10/30/24 14:43 [No Known Allergies*] Home Medications ?Medication ?Instructions ?Recorded ?Confirmed ?Last Taken ?Type zolpidem 10 mg tablet 10 mg PO BEDTIME PRN Sleep 08/26/20 12/18/24 06/02/24 History lorazepam 0.5 mg tablet 0.5 mg PO BID 02/16/22 12/18/24 06/02/24 History atorvastatin 40 mg tablet (Lipitor) 40 mg PO BEDTIME 05/23/24 12/18/24 06/02/24 History diltiazem HCl 240 mg 240 mg PO DAILY 05/23/24 12/18/24 12/18/24 History capsule,extended release 24 hr acetaminophen 500 mg tablet 1,000 mg PO Q6H PRN Pain 06/09/24 12/18/24 06/01/24 History lorazepam 1 mg tablet (Ativan) 1 mg PO BID 06/09/24 12/18/24 06/02/24 History flecainide 100 mg tablet 100 mg PO Q12H 09/11/24 12/18/24 Unknown History Exam Height,Weight and Vital Signs: Height 5 ft 6 in Weight 105.687 kg Assessment and Plan Assessment Anesthesia Assessment: Chart Reviewed Final Anesthetic Review Family History of Problems with Anesthesia: No History of Problems with Anesthesia: No Documented by User: Stephanie Wallace MD 12/18/24 09:13 HPI - Anesthesia Eval Consult details Narrative: 69yo M for Upper Endoscopy and Colonoscopy Optimized for endos per [facility]. Follows for mild, nonobstructive CAD, PAF (eliquis)- last dose 12/12/24 [facility] Past Medical History Medical History Atherosclerotic cardiovascular disease CAD (coronary artery disease) Nocturnal hypoxemia History of depression On anticoagulant therapy On beta adrian at home ELLEN (obstructive sleep apnea) Obesity (BMI 30-39.9) Essential hypertension PAF (paroxysmal atrial fibrillation) Atrial fibrillation Family History Family History Mother No problems noted. Father No problems noted. Family history of problems with anesthesia: No Surgical History Surgical History History of total right knee replacement Hx of rotator cuff surgery Hx of colonoscopy Hx of surgical procedure History of elbow surgery History of left knee surgery History of cardioversion History of Problems with Anesthesia: No Social History Social History Household Members: None Housing: House Are you a primary daycare worker to a significant other at home: No Do you presently have visiting nurse or other home services: No Alcohol intake: never Patient Tobacco Use Status: Former Tobacco user Tobacco use type: Cigarette Years Smoked: 1 Use of substances other than those prescribed or required for medical reasons: No Advance Directives: No Advance Directives Information Provided: Yes Advance Directives Date on File: 04/07/21 service: No Current occupational status: retired 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 Meds Allergies Allergy/AdvReac Type Severity Reaction Status Date / Time No Known Allergies Allergy Verified 10/30/24 14:43 [No Known Allergies*] Home Medications ?Medication ?Instructions ?Recorded ?Confirmed ?Last Taken ?Type zolpidem 10 mg tablet 10 mg PO BEDTIME PRN Sleep 08/26/20 12/18/24 06/02/24 History lorazepam 0.5 mg tablet 0.5 mg PO BID 02/16/22 12/18/24 06/02/24 History atorvastatin 40 mg tablet (Lipitor) 40 mg PO BEDTIME 05/23/24 12/18/24 06/02/24 History diltiazem HCl 240 mg 240 mg PO DAILY 05/23/24 12/18/24 12/18/24 History capsule,extended release 24 hr acetaminophen 500 mg tablet 1,000 mg PO Q6H PRN Pain 06/09/24 12/18/24 06/01/24 History lorazepam 1 mg tablet (Ativan) 1 mg PO BID 06/09/24 12/18/24 06/02/24 History flecainide 100 mg tablet 100 mg PO Q12H 09/11/24 12/18/24 Unknown History Exam Height,Weight and Vital Signs: Height 5 ft 6 in Weight 105.687 kg Vital Signs Temp Pulse Resp BP Pulse Ox O2 Del Method 12/18/24 07:51 97.7 F 55 16 128/67 95 Room Air Airway Mallampati Class: II TM Dist: >3cm Neck ROM: Full Denture: Upper and Lower Loose/Missing/Broken Teeth: Yes (Edentulous. Dentures at home) Heart: RRR Lungs: CTAB Assessment and Plan Assessment Anesthesia Assessment: Anesthesia Plan Discussed and Chart Reviewed Final Anesthetic Review Family History of Problems with Anesthesia: No History of Problems with Anesthesia: No NPO: Yes ASA Class: III Final Preanesthetic Review: No Changes in Pt Med Stat, Meds/Allgs Chart Reviewed, Consent Obtained/Reviewed and Anes Risks/Benef Reviewed Patient Risk: Intermediate Procedure Risk: Low Assessment/Block/Sedation in SS: Assess/Block/Sedation-SS Anesthetic Plan Anesthetic Plan: TIVA Disposition: Standard PACU
[2024-12-18 07:51] VITALS: BP 128/67; PULSE 55; RESP 16; TEMP 36.5; O2SAT 95; BMI 37.2
[2024-12-18] MEDS: Lactated Ringers 1,000 ML 100 ML IVCONT (08:11)
--- NOTE | 2024-12-18 08:24 | MHC.SHP ---
Pre-Procedural Eval Section A - 24 Hr Update-Section A only Date of Service: 12/18/24 Section B - Complete if H&P > 30 days Chief Complaint: dysphagia, Hx of polyps Details of Present Illness: Atherosclerotic cardiovascular disease CAD (coronary artery disease) Nocturnal hypoxemia History of depression On anticoagulant therapy On beta adrian at home ELLEN (obstructive sleep apnea) Obesity (BMI 30-39.9) Essential hypertension PAF (paroxysmal atrial fibrillation) Atrial fibrillation Surgical History Hx of rotator cuff surgery Hx of colonoscopy Hx of surgical procedure History of elbow surgery History of left knee surgery History of cardioversion Present Medications: see Short Stay Collaborative assessment Allergies: Allergies Allergy/AdvReac Type Severity Reaction Status Date / Time No Known Allergies Allergy Verified 10/30/24 14:43 [No Known Allergies*] Review of Systems Review of Systems Comment: Ten point ROS negative Exam Exam Comment: Gen appear: No acute distress HEENT: no icterus Chest: No overt resp distress Abd: soft, nontender, nondistended Psych: Stable affect, answering questions appropriately Neuro: A/Ox3 noted to move all extremities spontaneously Ext: no peripheral edema Plan Diagnosis/Plan: Unchanged I have reviewed the history and physical and performed a pertinent physical examination on my patient. No changes have occurred unless specified. Time Spent With Patient Time: Total time managing care of this patient today ____ minutes.
[2024-12-18 09:58] VITALS: BP 105/58; PULSE 53; RESP 14; TEMP 37.1; O2SAT 93
--- NOTE | 2024-12-18 09:58 | P.OPN-COLO_ITS ---
Colonoscopy Operative Note Operative Note Date of Service: 12/18/24 Narrative: Procedure: Upper endoscopy and colonoscopy Indication: Dysphagia, hx of polyps Endoscopist: Alicia Cardoso MD Anesthesia Provider: Dr Nita Gutierrez Anesthesia type: MAC Instrument: [id number] and [id number] EGD Procedure:?? The procedure, indications, preparation and potential complications were reviewed with the patient, who indicated understanding and gave written informed consent to proceed. The endoscope was introduced through the mouth, and advanced to the 2nd part of the duodenum. The mucosa was carefully examined on slow withdrawal of the endoscope. The patient tolerated the procedure well. There were no immediate complications.? EGD Findings:? * Esophagus:? Diffuse ulceration with spontaneous oozing from GE junction at 38 cm to 32 cm. Hemo spray was applied for hemostasis. * Stomach:? Erythema and erosions in the antrum. Retroflexion was performed in the cardia. Random cold forceps biopsies were taken from the stomach. * Duodenum:? Normal duodenal mucosa. Colonoscopy Procedure:? The patient was then turned for the colonoscopy. A digital rectal exam was performed which was normal.? A distal attachment cap was affixed to the tip of the scope and the colonoscope was then inserted through the anus and advanced through the colon and advanced to the cecum at 75 cm and terminal ileum.? Appendiceal orifice and ileocecal valve were identified. Mucosa was carefully examined under high definition white light as the instrument was slowly withdrawn in a retrograde panoramic fashion. Retroflexion was performed in ascending colon and rectum. The procedure was not difficult. The quality of the prep was BBPS: 3+2+3 = adequate Withdrawal time 9 minutes Limitations: No limitations Findings: Mucosa: Normal colon and terminal ileum mucosa. Protruding lesions: * 1 sessile polyp of size 6 mm in transverse colon. Cold snare polypectomy was performed. Polyp was completely removed and retrieved. * Moderate internal hemorrhoids without stigmata of recent bleeding. Impression: 1. Grade D esophagitis 2. Gastritis (biopsy) 3. Normal duodenum 4. Normal colon and terminal ileum mucosa 5. 1 polyp removed 6. Internal hemorrhoids Recommendations:?? * Follow-up path results * Start omeprazole 20 mg BID x 8 weeks and then once daily * Repeat EGD to be booked in 2-3 months to assess for healing and r/o BE * Avoid NSAIDs * H Pylori treatment if biopsies + * Repeat colonoscopy for CRC screening in 7 years if polyp is an adenoma, 5 years if it is sessile serrated.
[2024-12-18 10:08] VITALS: BP 108/62; PULSE 53; RESP 14; TEMP 36.6; O2SAT 95
== END 2024-12-18 11:34 | disposition home or self-care (01) ==
PROVIDERS: PCP Family Medicine; Visit Provider Internal Medicine
PROC: (CPT 45385; principal; 2024-12-18 09:00)
DX: Z12.11 Encounter for screening for malignant neoplasm of colon (principal); Z86.0101 Personal history of adenomatous and serrated colon polyps; D12.3 Benign neoplasm of transverse colon; K64.8 Other hemorrhoids; R13.10 Dysphagia, unspecified; K20.91 Esophagitis, unspecified with bleeding; K31.9 Disease of stomach and duodenum, unspecified; K29.50 Unspecified chronic gastritis without bleeding; I10 Essential (primary) hypertension; I48.0 Paroxysmal atrial fibrillation; I25.10 Atherosclerotic heart disease of native coronary artery without angina pectoris; R06.6 Hiccough; G47.33 Obstructive sleep apnea (adult) (pediatric); Z79.01 Long term (current) use of anticoagulants; Z79.899 Other long term (current) drug therapy; Z98.890 Other specified postprocedural states; Z87.891 Personal history of nicotine dependence
CPT/HCPCS: 45385; 43239; 88305; 88342; J1596; J2003; J2704

== ENCOUNTER → 2024-12-18 06:11 | Outpatient (BNV) | payer OTHER, SELFPAY | PROVIDERS: PCP Family Medicine; Visit Provider Internal Medicine | DX: Z12.11 Encounter for screening for malignant neoplasm of colon (principal); Z86.0100 Personal history of colon polyps, unspecified; D12.3 Benign neoplasm of transverse colon; K64.8 Other hemorrhoids; R13.10 Dysphagia, unspecified; K20.91 Esophagitis, unspecified with bleeding; K29.70 Gastritis, unspecified, without bleeding | CPT/HCPCS: 43239; 43255; 45385 ==

== ENCOUNTER 2025-03-17 06:41 | Day surgery (SDC) | payer OTHER, SELFPAY ==
--- OUTSIDE RECORDS SUMMARY | 2025-02-19 11:54 | XMS_ITS | Clinical Summary ---
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 with calf compression is demonstrated. The deep calf veins, as visualized, are compressible. An anterior knee joint effusion is seen. Procedure Note Georgiana Freedman MD - 11/30/2024 History: Right lower extremity pain and swelling. Findings: Duplex and color Doppler imaging of the deep venous system of the rightlower extremity was performed from the inguinal ligament to the poplitealfossa. The common femoral, femoral and popliteal veins are patent andcompress completely. Normal spontaneous and phasic venous flow isdemonstrated with Doppler. Normal flow augmentation with calf compressionis demonstrated. The deep calf veins, as visualized, are compressible. An anterior knee joint effusion is seen. IMPRESSION: Impression: No evidence of deep vein thrombosis in the right femoral-popliteal venoussegment. Knee joint effusion. Telerad BELA ([id number]) -------- FINAL REPORT -------- Dictated By: Georgiana Freedman Dictated Date: 11/30/2024 10:00 ET Assigned Physician: Georgiana Freedman Reviewed and Electronically Signed By: Georgiana Freedman Signed Date: 11/30/2024 10:00 ET Workstation ID: [id number] Transcribed By: Self Edit Transcribed Date: 11/30/2024 10:00 ET us Minoo Hernandez DO CV VASCULAR PROCEDURES Fi nal Result * (ABNORMAL) Basic metabolic panel (11/29/2024 11:45 PM EDT) Sodium 138 133 - 145 mmol/L LAB CHEMISTRY METHOD 11/30/2024 12:35 AM [facility] Potassium 4.2 3.5 - 5.5 mmol/L LAB CHEMISTRY METHOD 11/30/2024 12:35 AM [facility] Chloride 105 96 - 110 mmol/L LAB CHEMISTRY METHOD 11/30/2024 12:35 AM [facility] CO2 26 21 - 32 mmol/L LAB CHEMISTRY METHOD 11/30/2024 12:35 AM [facility] Anion Gap 7 3 - 11 LAB CHEMISTRY METHOD 11/30/2024 12:35 AM [facility] Glucose 125(H) 70 - 100 mg/dL LAB CHEMISTRY METHOD 11/30/2024 12:35 AM [facility] BUN 17 5 - 25 mg/dL LAB CHEMISTRY METHOD 11/30/2024 12:35 AM [facility] Creatinine 0.90 0.70 - 1.30 mg/dL LAB CHEMISTRY METHOD 11/30/2024 12:35 AM EDT [facility] eGFR 92 >=60 mL/min/1. 73m2 LAB CHEMISTRY METHOD 11/30/2024 12:35 AM EDT [facility] Comment:Calculation based on the Chronic Kidney Disease Epidemiology Collaboration (CKD-EPI) equation refit without adjustment for race. BUN/Creatinine Ratio 18.9 LAB CHEMISTRY METHOD 11/30/2024 12:35 AM EDT [facility] Calcium 9.5 8.5 - 10.5 mg/dL LAB CHEMISTRY METHOD 11/30/2024 12:35 AM EDT [facility] Blood Venous blood specimen / Unknown Venipuncture / Unknown 11/29/2024 11:45 PM EDT 11/29/2024 11:52 PM EDT Oracio Vyas MD LAB BLOOD ORDERABLES Wendi l Result [facility] [address] [place] [address], from Last 3 Months Additional Health Concerns Infection Onset Date Last Indicated Parainfluenza Virus 08/21/2024 08/21/2024 Insurance [address] [place] [id number] [facility] Member Subscriber Plan / Payer (Ef fective 2023-Present) Name:Donald Ornelas Relation to Subscriber:Self Name:Donald Ornelas Payer ID:[id number] Group ID:[id number] Type:Not on file Address: [address] [facility] [place] [address] [facility] MEDICARE Member Subscriber Plan / Payer (Ef fective 2023-Present) Name:Dhruv Ornelaso Relation to Subscriber:Self Name:Donald Ornelas Payer ID:[id number] Group ID:[id number] Type:Not on file Address: [facility] [address] [place] [address] Care Teams 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
--- NOTE | 2025-03-09 12:20 | HO.ANESPROP2 ---
Documented by User: Chloe Nielsen NP 03/09/25 12:24 HPI - Anesthesia Eval Consult details Narrative: 69yo M for Upper Endoscopy Follows [facility] Cardiology for nonobstructive CAD, PAF. Last office visit 10/2024 and optimized to proceed with EGD/[facility] Active Problems Active Problems: All Active Problems Dysphagia (Acute) Status post total right knee replacement (Acute) Family history of colon cancer in father (Acute) History of adenomatous polyp of colon (Acute) Precordial chest pain (Acute) COVID-19 (Acute) Tendinitis of left hip (Acute) Osteoarthritis of right knee (Acute) Preoperative cardiovascular examination (Acute) Contusion of right knee (Acute) Rotator cuff tear, left (Acute) Encounter for monitoring flecainide therapy (Acute) Atherosclerotic cardiovascular disease (Acute) CAD (coronary artery disease) (Acute) On anticoagulant therapy (Acute) Nocturnal hypoxemia (Acute) ELLEN (obstructive sleep apnea) (Acute) Obesity (BMI 30-39.9) (Acute) Essential hypertension (Acute) PAF (paroxysmal atrial fibrillation) (Acute) Past Medical History Medical History Atherosclerotic cardiovascular disease CAD (coronary artery disease) Nocturnal hypoxemia History of depression On anticoagulant therapy On beta adrian at home ELLEN (obstructive sleep apnea) Obesity (BMI 30-39.9) Essential hypertension PAF (paroxysmal atrial fibrillation) Atrial fibrillation Family History Family History Mother No problems noted. Father No problems noted. Family history of problems with anesthesia: No Surgical History Surgical History History of total right knee replacement Hx of rotator cuff surgery Hx of colonoscopy Hx of surgical procedure History of elbow surgery History of left knee surgery History of cardioversion History of Problems with Anesthesia: No Social History Social History Household Members: None Housing: House Are you a primary multi care technician to a significant other at home: No Do you presently have visiting nurse or other home services: No Alcohol intake: never Patient Tobacco Use Status: Former Tobacco user Tobacco use type: Cigarette Years Smoked: 1 Have you been hit, kicked, punched, or otherwise hurt by someone within the past year? 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 Meds Allergies Allergy/AdvReac Type Severity Reaction Status Date / Time No Known Allergies (No Known Allergy Verified 03/17/25 07:29 Allergies*) Home Medications ?Medication ?Instructions ?Recorded ?Confirmed ?Last Taken ?Type zolpidem 10 mg tablet 10 mg PO BEDTIME PRN Sleep 08/26/20 03/17/25 06/02/24 History lorazepam 0.5 mg tablet 0.5 mg PO BID 02/16/22 03/17/25 06/02/24 History acetaminophen 500 mg tablet 1,000 mg PO Q6H PRN Pain 06/09/24 03/17/25 06/01/24 History lorazepam 1 mg tablet (Ativan) 1 mg PO BID 06/09/24 03/17/25 06/02/24 History Exam Pertinent Lab Results Pertinent Lab Results: Laboratory Tests 06/07/24 22:18 WBC 5.8 Hgb 11.6 L Hct 33.8 L Plt Count 213 Sodium 137 Potassium 3.7 Chloride 102 Carbon Dioxide 25 BUN 15 Creatinine 0.83 Narrative Narrative: CTA of coronary 01/31/2024, proximal LAD mild stenosis, 25-49%, proximal circumflex minimal stenosis 1-24% echo 09/17/2024 showed EF 55-60%, no valve abnormalities, left atrium mildly dilated, right atrium likely dilated. EKG 10/2024 shows normal sinus rhythm, rate 64, QTC 416 milliseconds. Assessment and Plan Assessment Anesthesia Assessment: Chart Reviewed Final Anesthetic Review Family History of Problems with Anesthesia: No History of Problems with Anesthesia: No Documented by User: Chris Subramanian MD 03/17/25 07:39 [facility] Past Medical History Medical History Atherosclerotic cardiovascular disease CAD (coronary artery disease) Nocturnal hypoxemia History of depression On anticoagulant therapy On beta adrian at home ELLEN (obstructive sleep apnea) Obesity (BMI 30-39.9) Essential hypertension PAF (paroxysmal atrial fibrillation) Atrial fibrillation Family History Family History Mother No problems noted. Father No problems noted. Surgical History Surgical History History of total right knee replacement Hx of rotator cuff surgery Hx of colonoscopy Hx of surgical procedure History of elbow surgery History of left knee surgery History of cardioversion Social History Social History Household Members: None Housing: House Are you a primary multi care technician to a significant other at home: No Do you presently have visiting nurse or other home services: No Alcohol intake: never Patient Tobacco Use Status: Former Tobacco user Tobacco use type: Cigarette Years Smoked: 1 Have you been hit, kicked, punched, or otherwise hurt by someone within the past year? 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 Meds Allergies Allergy/AdvReac Type Severity Reaction Status Date / Time No Known Allergies (No Known Allergy Verified 03/17/25 07:29 Allergies*) Home Medications ?Medication ?Instructions ?Recorded ?Confirmed ?Last Taken ?Type zolpidem 10 mg tablet 10 mg PO BEDTIME PRN Sleep 08/26/20 03/17/25 06/02/24 History lorazepam 0.5 mg tablet 0.5 mg PO BID 02/16/22 03/17/25 06/02/24 History acetaminophen 500 mg tablet 1,000 mg PO Q6H PRN Pain 06/09/24 03/17/25 06/01/24 History lorazepam 1 mg tablet (Ativan) 1 mg PO BID 06/09/24 03/17/25 06/02/24 History Exam Airway Mallampati Class: II TM Dist: <=3cm Neck ROM: Full Denture: Upper and Lower Heart: ok Lungs: ok Assessment and Plan Assessment Anesthesia Assessment: Anesthesia Plan Discussed Final Anesthetic Review NPO: Yes ASA Class: III Final Preanesthetic Review: No Changes in Pt Med Stat, Meds/Allgs Chart Reviewed, Consent Obtained/Reviewed and Anes Risks/Benef Reviewed Patient Risk: Intermediate Procedure Risk: Intermediate Anesthetic Plan Anesthetic Plan: Agree w/ Assess. and Plan and TIVA Disposition: Standard PACU
[2025-03-17 07:13] VITALS: BMI 37.7
[2025-03-17 07:26] VITALS: BP 126/73; PULSE 53; RESP 18; TEMP 36.7; O2SAT 96
[2025-03-17] MEDS: Lactated Ringers 1,000 ML 100 ML IVCONT (07:26)
--- NOTE | 2025-03-17 07:45 | MHC.SHP ---
Pre-Procedural Eval Section A - 24 Hr Update-Section A only Date of Service: 03/17/25 Section B - Complete if H&P > 30 days Chief Complaint: Esophagitis, unspecified without bleeding Details of Present Illness: Atherosclerotic cardiovascular disease CAD (coronary artery disease) Nocturnal hypoxemia History of depression On anticoagulant therapy On beta adrian at home ELLEN (obstructive sleep apnea) Obesity (BMI 30-39.9) Essential hypertension PAF (paroxysmal atrial fibrillation) Atrial fibrillation Surgical History Hx of rotator cuff surgery Hx of colonoscopy Hx of surgical procedure History of elbow surgery History of left knee surgery History of cardioversion Present Medications: see Short Stay Collaborative assessment Allergies: Allergies Allergy/AdvReac Type Severity Reaction Status Date / Time No Known Allergies (No Known Allergy Verified 03/17/25 07:29 Allergies*) Review of Systems Review of Systems Comment: Ten point ROS negative Exam Exam Comment: Gen appear: No acute distress HEENT: no icterus Chest: No overt resp distress Abd: soft, nontender, nondistended Psych: Stable affect, answering questions appropriately Neuro: A/Ox3 noted to move all extremities spontaneously Ext: no peripheral edema Plan Diagnosis/Plan: Unchanged I have reviewed the history and physical and performed a pertinent physical examination on my patient. No changes have occurred unless specified. Time Spent With Patient Time: Total time managing care of this patient today ____ minutes.
--- NOTE | 2025-03-17 08:41 | P.OP_ITS ---
Operative Note Operative Note Date of Service: 03/17/25 Narrative: Procedure: Esophagogastroduodenoscopy Endoscopist: Alicia Cardoso MD Indication: Hx of esophagitis, dysphagia Anesthesia Provider: Dr Chris Subramanian Anesthesia Type: MAC ?? EGD Procedure:?? The procedure, indications, preparation and potential complications were reviewed with the patient, who indicated understanding and gave written informed consent to proceed. A physical exam was performed. The endoscope was introduced through the mouth, and advanced to the second part of duodenum. The mucosa was carefully examined on slow withdrawal of the endoscope. The patient tolerated the procedure well. There were no immediate complications.? ? EGD Findings:? * Esophagus:? Small localized patch of heterotopic gastric mucosa was noted in the upper esophagus. The Z line was at 40 cm and irregular to 39 cm with a SCM tongue extending to 36 cm (C1M4). Cold forceps biopsies were taken q1 cm for histology and evaluation for Valenzuela's esophagus. A tissue cypher will also be sent if metaplasia present. * Stomach:? Normal mucosa was noted in the stomach. Retroflexion was performed in the cardia. * Duodenum:? Normal mucosa was noted in the whole of the examined duodenum. EGD Impressions:? * Inlet patch * [place] colored tongue r.o BE (biopsy, tissue cypher) * Normal stomach * Normal duodenum ?? Recommendations:?? * Follow biopsy results. Our office will call or send a letter with results within 7-10 days. * Repeat EGD in 3-5 years depending on the results of the biopsy and risk stratification on tissue cypher. * Continue PPI therapy. * Resume anticoagulation tomorrow. * Avoid NSAIDs. Above has been reviewed with the patient. Relevant educational hand outs were provided at discharge. ?
[2025-03-17 08:48] VITALS: BP 93/48; PULSE 44; RESP 18; TEMP 37; O2SAT 90
[2025-03-17 09:00] VITALS: BP 95/57; PULSE 41; RESP 18; O2SAT 93
[2025-03-17 09:15] VITALS: BP 101/62; PULSE 44; RESP 18; O2SAT 94
[2025-03-17 09:30] VITALS: BP 90/45; PULSE 41; RESP 18; O2SAT 95
== END 2025-03-17 10:33 | disposition home or self-care (01) ==
PROVIDERS: PCP Family Medicine; Visit Provider Internal Medicine
PROC: 0DJ08ZZ Inspection of Upper Intestinal Tract, Via Natural or Artificial Opening Endoscopic (ICD-10-PCS; CPT 43235; principal; 2025-03-17 08:20)
DX: R06.6 Hiccough (principal); R13.10 Dysphagia, unspecified; Q39.8 Other congenital malformations of esophagus; K22.9 Disease of esophagus, unspecified; I10 Essential (primary) hypertension; E78.5 Hyperlipidemia, unspecified; I48.0 Paroxysmal atrial fibrillation; G47.33 Obstructive sleep apnea (adult) (pediatric); Z87.891 Personal history of nicotine dependence; Z79.01 Long term (current) use of anticoagulants
CPT/HCPCS: 43239; 88305; C1769; J2003; J2704; J3010

== ENCOUNTER → 2025-03-17 06:41 | Outpatient (BNV) | payer OTHER, SELFPAY | PROVIDERS: PCP Family Medicine; Visit Provider Internal Medicine | DX: K20.90 Esophagitis, unspecified without bleeding (principal); K22.70 Barrett's esophagus without dysplasia | CPT/HCPCS: 43239 ==

== ENCOUNTER 2025-03-31 20:09 | Emergency (ER) | payer OTHER, SELFPAY ==
--- NOTE | ~2025-03-31 | XR_ITS ---
CLINICAL HISTORY: atraumatic low back pain Lumbar spine three views Comparison: None provided Findings: No acute fracture or dislocation. Posterior alignment is normal. Diffuse moderate degenerative change. No radiopaque foreign bodies. Impression: No acute processes This document has been electronically signed by: Sunny Cardoza MD on 03/31/2025 21:37:06
--- NOTE | 2025-03-31 20:24 | ED.BACK ---
HPI - Back Pain/Injury General Chief Complaint: Back Pain/Injury Stated Complaint: Back injury Time Seen by Provider: 03/31/25 23:27 Source: patient Limitations: no limitations History of Present Illness ED Provider: Barbara Orellana PA-C HPI Narrative: 69-year-old male with a history of known underlying arthritis, hypertension, hyperlipidemia, coronary artery disease, paroxysmal AFib on Eliquis, obesity who presents with back pain x4 days. Patient states he was moving cases of water into his vehicle, when he developed acute onset low back pain. The pain is nonradiating, worse with position change. Denies weakness of lower extremity, paresthesia, urinary retention or bowel incontinence. Related Data Home Medications ?Medication ?Instructions ?Recorded ?Confirmed zolpidem 10 mg tablet 10 mg PO BEDTIME PRN Sleep 08/26/20 03/17/25 lorazepam 0.5 mg tablet 0.5 mg PO BID 02/16/22 03/17/25 acetaminophen 500 mg tablet 1,000 mg PO Q6H PRN Pain 06/09/24 03/17/25 lorazepam 1 mg tablet (Ativan) 1 mg PO BID 06/09/24 03/17/25 Previous Rx's ?Medication ?Instructions ?Recorded walker #1 ea 03/24/24 Wheelchair w foot rests #1 ea 06/30/24 apixaban 5 mg tablet (Eliquis) 5 mg PO BID #180 tabs 07/04/24 metoprolol tartrate 25 mg tablet 25 mg PO BID #180 tabs 07/04/24 omeprazole 20 mg capsule,delayed 20 mg PO BID #90 caps 12/18/24 release atorvastatin 40 mg tablet 40 mg PO QPM #90 tabs 02/02/25 diltiazem HCl 240 mg 240 mg PO DAILY #90 caps 02/02/25 capsule,extended release 24 hr flecainide 100 mg tablet 100 mg PO Q12H #180 tabs 02/02/25 acetaminophen 500 mg tablet 1,000 mg (2 x 500 mg) PO Q8H PRN 04/01/25 (Acetaminophen Pain Relief) pain #24 tabs methocarbamol 750 mg tablet 1,500 mg (2 x 750 mg) PO Q8H PRN 04/01/25 pain, moderate #24 tabs methylprednisolone 4 mg tablets in 4 mg PO QAM #21 ea 04/01/25 a dose pack (Medrol (Axel)) Allergies Allergy/AdvReac Type Severity Reaction Status Date / Time No Known Allergies (No Known Allergy Verified 03/31/25 20:27 Allergies*) Review of Systems Review of Systems: Yes all other systems are reviewed and are negative Constitutional: Constitutional: Denies fatigue and Denies fever(s) Cardiovascular: Cardiovascular: Denies chest pain and Denies dyspnea Respiratory: Respiratory: Denies dyspnea Musculoskeletal: Musculoskeletal: Reports back pain, Denies muscle weakness, Denies radiating pain into limb and Denies tingling Neurologic: Denies tingling Endocrine: Endocrine: Denies fatigue [facility] Past Medical History Attestation statement: The following information was validated with the patient. Medical History Atherosclerotic cardiovascular disease CAD (coronary artery disease) Nocturnal hypoxemia History of depression On anticoagulant therapy On beta adrian at home ELLEN (obstructive sleep apnea) Obesity (BMI 30-39.9) Essential hypertension PAF (paroxysmal atrial fibrillation) Atrial fibrillation Surgical History History of total right knee replacement Hx of rotator cuff surgery Hx of colonoscopy Hx of surgical procedure History of elbow surgery History of left knee surgery History of cardioversion Family History Family History Mother No problems noted. Father No problems noted. Social History Social History Household Members: None Housing: House Are you a primary animal care service worker to a significant other at home: No Do you presently have visiting nurse or other home services: No Alcohol intake: never Patient Tobacco Use Status: Former Tobacco user Tobacco use type: Cigarette Years Smoked: 1 Advance Directives: Yes Advance Directives on File: Yes Advance Directives Date on File: 04/07/21 Do you have a plan to hurt others: No Plan service: No Current occupational status: retired 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 Physical Exam Vital Signs: Vital Signs: Last Vital Signs Temp 97.5 F 03/31/25 23:07 Pulse 53 03/31/25 23:07 Resp 14 03/31/25 23:07 BP 132/72 03/31/25 23:07 Pulse Ox 99 03/31/25 23:07 O2 Del Method Room Air 03/31/25 23:07 BMI result Body Mass Index 37.4 Const: Other: Alert, well-appearing Orientation/consciousness: patient oriented x3 Resp: Effort & Inspection: normal respiratory effort Cardio: Other: Normal peripheral perfusion Skin: Other: Warm dry no rash Neuro: General: patient oriented x3, gait normal, no focal motor deficits and CN's II-XI intact bilaterally Extrem: Other: Strength 5/5 bilateral lower extremities Psych: Other: Cooperative Course Course Course Narrative: This is a Rapid Medical Examination (RME) performed by Deysi Marmolejo PA-C in triage. Full HPI, ROS, assessment and treatment plan per primary provider in the Main ED. Hx: 69 yo M hx HTN, afib here for eval of right sided lower back pain x3-4 days. pain worse w/ movement and bending forward. no injury/trauma. was carrying heavy cases of water into his home the other day but did not feel pain at that time. trying tylenol/motrin/rest without improvement. no bowel/bladder incontinence/ retention, saddle anesthesia. no hx ivdu, or spinal surgery. Plan: xrs Medical Decision Making Medical Decision Making MDM Narrative: 69-year-old male with a history of known underlying arthritis, hypertension, hyperlipidemia, coronary artery disease, paroxysmal AFib on Eliquis, obesity who presents with back pain x4 days. Patient states he was moving cases of water into his vehicle, when he developed acute onset low back pain. The pain is nonradiating, worse with position change. Denies weakness of lower extremity, paresthesia, urinary retention or bowel incontinence. Problem: Vascular disease History: Per patient I have considered the following differential diagnoses: Lumbar strain, compression fracture, lumbar radiculopathy, cauda equina Plan: Patient here with lumbar strain without radicular symptoms, he also has no red flag signs symptoms concerning for cord compression. X-ray ordered from triage, he does have some arthritic changes no compression fracture. We will treat with the anti-inflammatory and muscle relaxant. I have independently reviewed the following tests: X-ray lumbar spine:Findings: No acute fracture or dislocation. Posterior alignment is normal. Diffuse moderate degenerative change. No radiopaque foreign bodies. Impression: No acute processes Discharge Plan Discharge Clinical Impression: Lumbar strain, Osteoarthritis of lumbar spine Patient Disposition: Home, Self-Care Instructions: Osteoarthritis (ED), Low Back Strain (ED), Core Strengthening Exercises (ED) Additional Instructions: The x-ray revealed that you have considerable arthritic changes in your lumbar spine. You are being treated for lumbar sprain/strain. See home care instructions. Take the steroid taper as directed, this is an anti-inflammatory. You can continue to use Tylenol 1000 mg taken every 8 hours, as the 2nd anti-inflammatory. Use the methocarbamol as needed for further pain, this is a muscle relaxant. To note this medication will cause drowsiness, do not drive or operate machinery while taking this medication. Follow up with primary care provider as needed. Prescriptions: New methocarbamol 750 mg tablet 1,500 mg PO Q8H PRN (Reason: pain, moderate) Qty: 24 0RF methylprednisolone [Medrol (Axel)] 4 mg tablets,dose pack 4 mg PO QAM Qty: 21 0RF Rx Instructions: Take per package instructions acetaminophen [Acetaminophen Pain Relief] 500 mg tablet 1,000 mg PO Q8H PRN (Reason: pain) Qty: 24 0RF No Action (DME) walker Misc See Rx Instructions .MEDSUPPLY Qty: 1 0RF Rx Instructions: Folding Front wheeled walker (DME) Wheelchair w foot rests See Rx Instructions .ROUTE .MEDSUPPLY Qty: 1 0RF Rx Instructions: As directed Eliquis 5 mg tablet 5 mg PO BID Qty: 180 3RF metoprolol tartrate 25 mg tablet 25 mg PO BID Qty: 180 3RF diltiazem HCl 240 mg capsule,extended release 24hr 240 mg PO DAILY Qty: 90 3RF atorvastatin 40 mg tablet 40 mg PO QPM Qty: 90 3RF flecainide 100 mg tablet 100 mg PO Q12H Qty: 180 3RF omeprazole 20 mg capsule,delayed release(DR/EC) 20 mg PO BID Qty: 90 0RF acetaminophen 500 mg Tablet 1,000 mg PO Q6H PRN (Reason: Pain) lorazepam [Ativan] 1 mg tablet 1 mg PO BID Rx Instructions: Takes with 0.5mg tab for total of 1.5mg BID. zolpidem 10 mg tablet 10 mg PO BEDTIME PRN (Reason: Sleep) lorazepam 0.5 mg tablet 0.5 mg PO BID Rx Instructions: Takes with 1mg tab for total of 1.5mg BID. Print Language: Danish
[2025-03-31 20:25] VITALS: BP 156/69; PULSE 60; RESP 16; TEMP 36.4; O2SAT 96; BMI 37.4
[2025-03-31 23:07] VITALS: BP 132/72; PULSE 53; RESP 14; TEMP 36.4; O2SAT 99
[2025-04-01 00:50] VITALS: BP 143/74; PULSE 53; RESP 15; TEMP 36.3; O2SAT 97
== END 2025-04-01 00:51 | disposition home or self-care (01) ==
PROVIDERS: Emergency Provider Emergency Medicine; PCP Family Medicine
DX: S39.012A Strain of muscle, fascia and tendon of lower back, initial encounter (principal); X58.XXXA Exposure to other specified factors, initial encounter; Y93.9 Activity, unspecified; Y92.9 Unspecified place or not applicable; Y99.9 Unspecified external cause status; M47.816 Spondylosis without myelopathy or radiculopathy, lumbar region
CPT/HCPCS: 72100; 99283

== ENCOUNTER → 2025-03-31 20:26 | Outpatient (BNV) | payer OTHER, SELFPAY | PROVIDERS: PCP Family Medicine; Visit Provider Radiology Diagnostic Radiology | DX: M54.50 Low back pain, unspecified (principal) | CPT/HCPCS: 72100 ==

== ENCOUNTER 2025-04-21 09:31 | Outpatient (REF) | payer OTHER, SELFPAY ==
[2025-04-21 11:42] LABS: Alanine Aminotransferase 33 U/L (0-40); Albumin Level 4.6 g/dL (3.5-5.0); Alkaline Phosphatase 100 U/L (39-117); Aspartate Amino Transferase 42 U/L (5-37); Cholesterol 134 mg/dL (<200); HDL Cholesterol 42 mg/dL (>40); Total Protein 7.1 g/dL (6.5-8.0); Triglycerides 66 mg/dL (<150)
== END 2025-04-21 09:32 | disposition home or self-care (01) ==
LOC: HO.LAB 09:31
PROVIDERS: PCP Family Medicine; Visit Provider Internal Medicine
DX: G47.33 Obstructive sleep apnea (adult) (pediatric) (principal); I25.10 Atherosclerotic heart disease of native coronary artery without angina pectoris; I48.0 Paroxysmal atrial fibrillation; E78.5 Hyperlipidemia, unspecified; Z51.81 Encounter for therapeutic drug level monitoring; Z79.899 Other long term (current) drug therapy
CPT/HCPCS: 36415; 80061; 80076; 93005; 99212

== ENCOUNTER 2025-04-21 09:31 | Outpatient (AMB) | payer OTHER, SELFPAY ==
[2025-04-21 09:57] VITALS: BP 124/80; PULSE 69; BMI 37.4
--- NOTE | 2025-04-21 09:57 | MHC.OFFVIS ---
Vital Signs 04/21/25 09:57 Height 5 ft 7 in Weight 238 lb 15.697 oz BMI 37.4 BP 124/80 Blood Pressure Location Lt brachial Pulse 69 Pulse Source Monitor Intake Visit Reasons: 6m follow up [employer] Travel Counselor Required: No Accompanied by: Self / Same As Patient Allergies No Known Allergies (No Known Allergies*) Allergy (Verified 04/21/25 10:01) Medication List - Last Reconciled 04/21/25 by Rodolfo Sims MD acetaminophen 1,000 mg PO Q6H PRN acetaminophen (Acetaminophen Pain Relief) 1,000 mg (2 x 500 mg) PO Q8H PRN apixaban (Eliquis) 5 mg PO BID atorvastatin 40 mg PO QPM diltiazem HCl CD 240 mg PO DAILY flecainide 100 mg PO Q12H lorazepam (Ativan) 1 mg PO BID lorazepam 0.5 mg PO BID methocarbamol 1,500 mg (2 x 750 mg) PO Q8H PRN methylprednisolone (Medrol (Axel)) 4 mg PO QAM metoprolol tartrate 25 mg PO BID omeprazole 20 mg PO BID walker Folding Front wheeled walker [Wheelchair w foot rests As directed] zolpidem 10 mg PO BEDTIME PRN HPI Comments Details: Donald returns for follow-up regarding paroxysmal atrial fibrillation. He is maintained on a combination of flecainide, diltiazem as well as metoprolol. He is also on anticoagulation with Eliquis. To recall, he came for shoulder surgery in 2019. At that time he was found to be in atrial fibrillation. Then cardioverted and started on flecainide. He had another recurrence, but we increased flecainide dose and he converted to sinus. More recently, had knee surgery and after that, had atrial fibrillation again but converted back to sinus rhythm. Overall, intermittent episodes over the last few years but maintaining sinus rhythm overall. Otherwise, was having some atypical chest pains that led to coronary CTA showing mild CAD. He has seen electrophysiology and pending atrial fibrillation ablation next month. [facility] Medical History Atherosclerotic cardiovascular disease CAD (coronary artery disease) Nocturnal hypoxemia History of depression On anticoagulant therapy On beta adrian at home ELLEN (obstructive sleep apnea) Obesity (BMI 30-39.9) Essential hypertension PAF (paroxysmal atrial fibrillation) Atrial fibrillation Surgical History History of total right knee replacement Hx of rotator cuff surgery Hx of colonoscopy Hx of surgical procedure History of elbow surgery History of left knee surgery History of cardioversion Family History Mother No problems noted. Father No problems noted. Social History Household Members: None Housing: House Are you a primary patient care coordinator to a significant other at home: No Do you presently have visiting nurse or other home services: No Alcohol intake: never Patient Tobacco Use Status: Former Tobacco user Tobacco use type: Cigarette Years Smoked: 1 Advance Directives Date on File: 04/07/21 service: No Current occupational status: retired 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 Review of Systems Const Denies daytime sleepiness, Denies difficulty sleeping, Denies snoring, Denies stops breathing during sleep and Denies weakness Card Denies chest pain, Denies rapid heart rate, Denies irregular heart rhythm, Denies claudication, Denies leg edema, Denies lightheadedness, Denies palpitations, Reports dyspnea, Denies dyspnea on exertion, Denies orthopnea, Denies paroxysmal nocturnal dyspnea and Denies slow heart rate Resp Denies cough, Reports dyspnea, Denies dyspnea on exertion and Denies snoring GI Reports no additional complaints, Denies hematochezia, Denies change in stool character and Denies dyspepsia Musc Denies abnormal gait, Denies muscle weakness and Denies numbness Neuro Denies abnormal gait, Denies numbness and Denies weakness Psych Reports anxiety Endo Denies palpitations Physical Exam Vital Signs: Last Vital Signs Pulse 69 04/21/25 09:57 BP 124/80 04/21/25 09:57 BMI result Body Mass Index 37.4 Const General: comfortable and no acute distress Orientation/consciousness: patient oriented x3 HEENT Other: Unremarkable Head: Yes normal to inspection Neck Neck: Yes normal visual inspection Chest Chest palpation & inspection: normal inspection of the chest Resp Auscultation: clear to auscultation bilaterally Cardio Palpation: normal PMI Heart sounds: S1 normal heart sound present, S2 normal heart sound present, no gallops, no murmurs and no rubs GI Palpation (GI): Soft to palpation Back/Spine/Pelvis Other: unremarkable Skin General skin exam: no rashes or lesions noted Neuro General: patient oriented x3 Extrem General: Yes normal to inspection Psych Mental Status: mental status grossly normal Office Procedures EKG Details: EKG with underlying sinus rhythm at 69/Min; no ischemic changes; MO interval 200 milliseconds [place]. [address]-[id number], Complete Assessment & Plan Assessment & Plan (1) PAF (paroxysmal atrial fibrillation): Code(s): I48.0 - Paroxysmal atrial fibrillation Category: Medical Plan: Maintained on flecainide/metoprolol/diltiazem/Eliquis. Await ablation. Post ablation, she will be able to stop the flecainide. (2) Encounter for monitoring flecainide therapy: Code(s): Z51.81 - Encounter for therapeutic drug level monitoring; Z79.899 - Other nursing home (current) drug therapy Category: Medical Plan: Stable. (3) Atherosclerotic cardiovascular disease: Code(s): I25.10 - Atherosclerotic heart disease of [place] coronary artery without angina pectoris Category: Medical Plan: Coronary CTA-mild stenosis proximal LAD. Minimal stenosis in the proximal circumflex. On statins. Advised to do labs for lipids and LFTs. (4) ELLEN (obstructive sleep apnea): Code(s): G47.33 - Obstructive sleep apnea (adult) (pediatric) Category: Medical Plan: Not on regular CPAP. Mainly treated by weight loss. Plan Discussion Notes The patient and I discussed the upcoming ablation procedure, which is scheduled for next month, as a treatment for atrial fibrillation. We talked about the potential benefits of the procedure, including the possibility of reducing medication use and alleviating symptoms. Follow-up was planned for three months post-procedure to assess outcomes and adjust treatment as necessary. Patient was informed and verbally consented to the use of an ambient scribe for clinic note documentation during this visit. Patient Instructions: - Prepare for the ablation procedure. - Monitor symptoms and report any significant changes. - Follow up in three months to evaluate the effectiveness of the procedure. Coding Level of Care Code Est Pt Level 4 (58603) Complex EM visit Add On G2211 Diagnoses PAF (paroxysmal atrial fibrillation) I48.0 Encounter for monitoring flecainide therapy Z51.81; Z79.899 Atherosclerotic cardiovascular disease I25.10 ELLEN (obstructive sleep apnea) G47.33 CPT Codes EKG - CPT: 79673-[id number], Complete ([id number])
--- OUTSIDE RECORDS SUMMARY | 2025-04-21 10:59 | XMS_ITS | Clinical Summary ---
Author Organization [facility] Address [address] [place] [address] Phone Care Team Providers Care Sash Assembler Name Role Phone Physician, Pcp Unknown Primary Care Provider Cynthia vailable Allergies No known active allergies Medications No known medications Active Problems No known active problems Medical History Medical History Date Comments A-fib ([facility] V24, [facility] V28) Social History Tobacco Use Types Packs/Day [...] Panel) 09/06/2023 Colorectal Cancer Screening: Colonoscopy 09/06/2023 Falls Risk Assessment 09/06/2023 Hepatitis C Screening 09/06/2023 Medicare Annual Wellness Visit 09/06/2023 Social Influencers of Health Screening 09/06/2023 Depression Screening 08/13/2024 COVID-19 Vaccine (3 - season) 2025 12/29/2022, 06/09/2022 Influenza Vaccine (#1) 2025 , [...] Date/Time Associated Diagnosis Comments ECG ANNOTATED 01/20/2025 COMPREHENSIVE METABOLIC PANEL STAT 01/15/2025 9:32 AM EDT from Last 3 Months or Most Recently Relevant to Health Maintenance Results * ECG-Annotated (01/20/2025) us Provider Onbase MD ECG ORDERABLES Final Result * (ABNORMAL) Comprehensive metabolic panel (01/15/2025 9:32 AM EDT) Sodium 136 133 - 145 mmol/L LAB CHEMISTRY METHOD 01/15/2025 10:27 AM [facility] Potassium 4.4 3.5 - 5.5 mmol/L LAB CHEMISTRY METHOD 01/15/2025 10:27 AM [facility] Chloride 106 96 - 110 mmol/L LAB CHEMISTRY METHOD 01/15/2025 10:27 AM [facility] CO2 28 21 - 32 mmol/L LAB CHEMISTRY METHOD 01/15/2025 10:27 AM [facility] Anion Gap 2(L) 3 - 11 LAB CHEMISTRY METHOD 01/15/2025 10:27 AM [facility] Glucose 124(H) 70 - 100 mg/dL LAB CHEMISTRY METHOD 01/15/2025 10:27 AM [facility] BUN 16 5 - 25 mg/dL LAB CHEMISTRY METHOD 01/15/2025 10:27 AM [facility] Creatinine 0.90 0.70 - 1.30 mg/dL LAB CHEMISTRY METHOD 01/15/2025 10:27 AM [facility] eGFR 92 >=60 mL/min/1. 73m2 LAB CHEMISTRY METHOD 01/15/2025 10:27 AM [facility] Comment:Calculation based on the Chronic Kidney Disease Epidemiology Collaboration (CKD-EPI) equation refit without adjustment for race. BUN/Creatinine Ratio 17.8 LAB CHEMISTRY METHOD 01/15/2025 10:27 AM [facility] Calcium 9.5 8.5 - 10.5 mg/dL LAB CHEMISTRY METHOD 01/15/2025 10:27 AM EDT [facility] AST (SGOT) 27 10 - 42 unit/L LAB CHEMISTRY METHOD 01/15/2025 10:27 AM T [facility] ALT (SGPT) 32 10 - 60 unit/L LAB CHEMISTRY METHOD 01/15/2025 10:27 AM EDT [facility] Alkaline Phosphatase 112 42 - 121 unit/L LAB CHEMISTRY METHOD 01/15/2025 10:27 AM EDT [facility] Total Protein 6.6 6.0 - 8.0 g/dL LAB CHEMISTRY METHOD 01/15/2025 10:27 AM T [facility] Albumin 3.7 3.2 - 5.0 g/dL LAB CHEMISTRY METHOD 01/15/2025 10:27 AM [facility] Total Bilirubin 0.6 0.0 - 1.4 mg/dL LAB CHEMISTRY METHOD 01/15/2025 10:27 AM EDT [facility] Blood Venous blood specimen / Unknown Venipuncture / Unknown 01/15/2025 9:32 AM EDT 01/15/2025 9:55 AM EDT Hiram Beck DO LAB BLOOD ORDERABLES Final Result [facility] [address] [place] [address], from Last 3 Months or Most Recently Relevant to Health Maintenance Additional Health Concerns Infection Onset Date Last Indicated Parainfluenza Virus 08/21/2024 08/21/2024 Insurance #[id number] [place], [place] [id number] [place] [address] Member Subscriber Plan / Payer (Ef fective 2023-Present) Name:Donald Ornelas Relation to Subscriber:Self Name:Donald Ornelas Payer ID:[id number] Group ID:[id number] Type:Not on file Address: [address] [place] [address] [employer] MED[employer] Member Subscriber Plan / Payer (Ef fective 2023-Present) Name:Donald Ornelas Relation to Subscriber:Self Name:Donald Ornelas Payer ID:[id number] Group ID:[id number] Type:Not on file Address: [address] [place] [address] [facility] Care Teams Sash Assembler Relationship Specialty Start Date End Date Physician, Pcp Unknown PCP - General 01/15/25
== END 2025-04-21 10:21 | disposition home or self-care (01) ==
LOC: HO.HCS 09:32
PROVIDERS: PCP Family Medicine; Visit Provider Internal Medicine
DX: I48.0 Paroxysmal atrial fibrillation (principal); Z51.81 Encounter for therapeutic drug level monitoring; Z79.899 Other long term (current) drug therapy; I25.10 Atherosclerotic heart disease of native coronary artery without angina pectoris; G47.33 Obstructive sleep apnea (adult) (pediatric)
CPT/HCPCS: 93010; 99214; G2211

== ENCOUNTER 2025-06-18 09:11 | Outpatient (AMB) | payer OTHER, SELFPAY ==
--- NOTE | 2025-06-18 09:13 | MHC.OFFVIS ---
Vital Signs 06/18/25 09:14 Height 5 ft 7 in Weight 243 lb 13.3 oz BMI 38.2 BP 138/86 Blood Pressure Location Lt brachial Position Sitting Pulse 84 Pulse Source Monitor Intake Visit Reasons: f/up fatigue Supervisor Policy Change Clerks Required: No Accompanied by: Self / Same As Patient Allergies No Known Allergies (No Known Allergies*) Allergy (Verified 06/18/25 09:19) Medication List - Last Reconciled 06/18/25 by Rodolfo Sims MD apixaban (Eliquis) 5 mg PO BID atorvastatin 40 mg PO QPM diltiazem HCl ER (Tiazac) 180 mg PO DAILY lorazepam 0.5 mg PO BID omeprazole 20 mg PO BID walker Folding Front wheeled walker [Wheelchair w foot rests As directed] zolpidem 10 mg PO BEDTIME PRN HPI Comments Details: Donald returns for follow-up regarding paroxysmal atrial fibrillation. He was on a combination of metoprolol, diltiazem as well as flecainide. For anticoagulation, was on Eliquis. He has had multiple episodes of atrial fibrillation over the years in spite of all the above medications and hence he was referred to EP. He recently had ablation for the same. Overall, he states he feels good. No clear-cut cardiac complaints. Otherwise, he was having some atypical sounding chest pains that led to coronary CTA showing mild CAD. He has seen electrophysiology and pending atrial fibrillation ablation next month. [facility] Medical History Atherosclerotic cardiovascular disease CAD (coronary artery disease) Nocturnal hypoxemia History of depression On anticoagulant therapy On beta adrian at home ELLEN (obstructive sleep apnea) Obesity (BMI 30-39.9) Essential hypertension PAF (paroxysmal atrial fibrillation) Atrial fibrillation Surgical History History of total right knee replacement Hx of rotator cuff surgery Hx of colonoscopy Hx of surgical procedure History of elbow surgery History of left knee surgery History of cardioversion Family History Mother No problems noted. Father No problems noted. Social History Household Members: None Housing: House Are you a primary aged or disabled care worker to a significant other at home: No Do you presently have visiting nurse or other home services: No Alcohol intake: never Patient Tobacco Use Status: Former Tobacco user Tobacco use type: Cigarette Years Smoked: 1 Advance Directives Date on File: 04/07/21 service: No Current occupational status: retired 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 Review of Systems Const Denies daytime sleepiness, Denies difficulty sleeping, Denies snoring, Denies stops breathing during sleep and Denies weakness ENT Reports dizziness Card Denies chest pain, Denies rapid heart rate, Denies irregular heart rhythm, Denies claudication, Denies leg edema, Denies lightheadedness, Denies palpitations, Reports dyspnea, Reports dyspnea on exertion, Denies orthopnea, Denies paroxysmal nocturnal dyspnea and Denies slow heart rate Resp Denies cough, Reports dyspnea, Reports dyspnea on exertion and Denies snoring GI Reports no additional complaints, Denies hematochezia, Denies change in stool character and Denies dyspepsia Musc Denies abnormal gait, Reports myalgias, Denies muscle weakness and Denies numbness Neuro Denies abnormal gait, Reports dizziness, Denies numbness and Denies weakness Endo Denies palpitations Physical Exam Vital Signs: Last Vital Signs Pulse 84 06/18/25 09:14 BP 138/86 06/18/25 09:14 BMI result Body Mass Index 38.2 Const General: comfortable and no acute distress Orientation/consciousness: patient oriented x3 HEENT Other: Unremarkable Head: Yes normal to inspection Neck Neck: Yes normal visual inspection Chest Chest palpation & inspection: normal inspection of the chest Resp Auscultation: clear to auscultation bilaterally Cardio Palpation: normal PMI Heart sounds: S1 normal heart sound present, S2 normal heart sound present, no gallops, no murmurs and no rubs GI Palpation (GI): Soft to palpation Back/Spine/Pelvis Other: unremarkable Skin General skin exam: no rashes or lesions noted Neuro General: patient oriented x3 Extrem General: Yes normal to inspection Psych Mental Status: mental status grossly normal Office Procedures EKG Details: EKG with underlying sinus rhythm at 84/Min; no ischemic changes; [place]. [id number], Complete Assessment & Plan Assessment & Plan (1) PAF (paroxysmal atrial fibrillation): Code(s): I48.0 - Paroxysmal atrial fibrillation Category: Medical Plan: Status post atrial fibrillation ablation. Per EP notes, flecainide has been stopped it metoprolol has also been stopped. He is on a low dose of diltiazem. No changes made. Otherwise continue Eliquis. We will recheck a Holter in about 6 months' time. He also has an EP appointment coming up. (2) Atherosclerotic cardiovascular disease: Code(s): I25.10 - Atherosclerotic heart disease of [place] coronary artery without angina pectoris Category: Medical Plan: Coronary CTA-mild stenosis proximal LAD. Minimal stenosis in the proximal circumflex. On statins. (3) ELLEN (obstructive sleep apnea): Code(s): G47.33 - Obstructive sleep apnea (adult) (pediatric) Category: Medical Plan: Not on regular CPAP. Mainly treated by weight loss. Plan Discussion Notes During the visit, I discussed with the patient the discontinuation of Metoprolol and Flecainide, and the adjustment of Diltiazem dose. I advised the patient to monitor for any discomfort and to avoid strenuous activities such as snow shoveling and excessive alcohol consumption. We agreed on a follow-up in six months to reassess his condition and potentially use a monitor for further evaluation. Patient was informed and verbally consented to the use of an ambient scribe for clinic note documentation during this visit. Orders: Orders ECG 3 day holter monitor 6 Months I48.0 - Paroxysmal atrial fibrillation Patient Instructions: - Monitor for any discomfort following medication changes. - Avoid strenuous activities such as snow shoveling. - Avoid excessive alcohol consumption. - Follow up in six months for reassessment. Coding Level of Care Code Est Pt Level 4 (97241) Complex EM visit Add On G2211 Diagnoses PAF (paroxysmal atrial fibrillation) I48.0 Atherosclerotic cardiovascular disease I25.10 ELLEN (obstructive sleep apnea) G47.33 CPT Codes EKG - CPT: 89334-[id number], Complete ([id number])
[2025-06-18 09:14] VITALS: BP 138/86; PULSE 84; BMI 38.2
== END 2025-06-18 09:37 | disposition home or self-care (01) ==
LOC: HO.HCS 09:12
PROVIDERS: PCP Family Medicine; Visit Provider Internal Medicine
DX: I48.0 Paroxysmal atrial fibrillation (principal); I25.10 Atherosclerotic heart disease of native coronary artery without angina pectoris; G47.33 Obstructive sleep apnea (adult) (pediatric)
CPT/HCPCS: 93010; 99214; G2211

== ENCOUNTER → 2025-06-18 09:11 | Outpatient (BNVA) | payer OTHER, SELFPAY | PROVIDERS: PCP Family Medicine; Visit Provider Internal Medicine | DX: I48.0 Paroxysmal atrial fibrillation (principal); I25.10 Atherosclerotic heart disease of native coronary artery without angina pectoris; G47.33 Obstructive sleep apnea (adult) (pediatric) | CPT/HCPCS: 93005; 99212 ==